=== PATIENT | male | born 1945 | race Hispanic/Latino ===

== ENCOUNTER 2018-09-17 06:26 | Day surgery (SDC) | payer MEDICARE, MEDICAID ==
[~2018-09-17] VITALS: Ht 152.4 cm; Wt 63.9 kg
[2018-09-17] MEDS: LR 1,000 ML IV ONE ×2 (06:00→07:00)
[~2018-09-17 06:26] MED LIST: ACET-897 PO; ALBU17IN2 INH; ASPI81TA26 PO; ATOR40TA75 PO; DEPA1CAP PO; METO1TAB32 PO; MULTTAB79 PO; OYST500T10 PO; POLY1POW38 PO; PROTPAK PO; SALI0.6530; ceFAZolin SOD 1 GM in D5W MINI-BAG PLUS 50 ML IV ONE
[2018-09-17] MEDS ORDERED: MIDAZOLAM INJ 2 MG/2 ML VIAL (J2250) As Ordered ONE (07:50)
[2018-09-17] MEDS ORDERED: LIDOCAINE 2% INJ 100 MG/5 ML SDV (FOR ANES.) As Ordered ONE (07:50)
[2018-09-17] MEDS ORDERED: ROCURONIUM BROMIDE 50 MG/5 ML VIAL As Ordered ONE (07:50)
[2018-09-17] MEDS ORDERED: ONDANSETRON 4MG/2ML VIAL (J2405) As Ordered ONE (07:50)
[2018-09-17] MEDS ORDERED: PROPOFOL 200 MG/20 ML VIAL As Ordered ONE (07:50)
[2018-09-17] MEDS ORDERED: dexameTHASONE 4 MG/ML 1ML VIAL (J1100) As Ordered ONE (07:50)
[2018-09-17] MEDS ORDERED: fentaNYL 100 MCG/2 ML INJECTION (J3010) As Ordered ONE ×2 (07:50→08:09)
[2018-09-17] MEDS ORDERED: PHENYLephrine HCL 500 MCG/5 ML (100MCG/ML) SYRINGE (J2370) As Ordered ONE (07:51)
[2018-09-17] MEDS ORDERED: SUGAMMADEX SODIUM 500 MG/5 ML VIAL (BRIDION) As Ordered ONE (08:02)
[2018-09-17] MEDS ORDERED: CEFAD50CA PO (09:15)
--- NOTE | 2018-09-17 09:20 | ROOPDOC ---
[facility] Report Of Operation Report of Operation DATE OF PROCEDURE: 09/17/18 PREPROCEDURE DIAGNOSES: Gross hematuria, bladder mass . POSTPROCEDURE DIAGNOSES: Same. PROCEDURE: Cystoscopy, transurethral resection of bladder tumor. SURGEON: Wilfredo Mas MD COUNSELLING PSYCHOLOGIST: MD Teresa ANESTHESIA: Gen. endotracheal. ESTIMATED BLOOD LOSS: Approximately 50 mL. COMPLICATIONS: None. REMARKS: Drains: 22 Mongolian Elmore catheter Findings: Large 4-5 cm high-grade tumor involving the right hemitrigone extending to the bladder neck. PROCEDURE NOTE: Patient was brought to the operating room and following administration of general endotracheal anesthesia was placed in the dorsolithotomy position and prepped and draped in usual sterile fashion. A 22 Mongolian cystoscope was inserted under direct vision. The urethra was normal. Prostate was 3 cm in length. Examination of the bladder revealed a high-grade tumor which was mainly submucosal and involving the right hemitrigone and extending to the bladder neck. The tumor was bleeding diffusely in multiple areas. The remainder of the bladder was unremarkable. The left ureteral orifice was normal. Several cold cup biopsies were obtained from the tumor and hemostasis was attempted with a Bugbee electrode. However good hemostasis could not be achieved. The cystoscope was removed. A continuous-flow resectoscope was inserted. Utilizing bipolar current the tumor was resected. Hemostasis was then achieved using bipolar electrocautery. Tumor chips were evacuated from the bladder using Ellik evacuator. The entire tumor could not be resected. Once good hemostasis was achieved the resectoscope was removed. A 22 Mongolian two-way Elmore catheter was inserted and placed to gravity drainage. Patient tolerated the procedure well and returned to the recovery room in satisfactory condition. Wilfredo Mas MD Sep 17, 2018 09:20
[2018-09-17] MEDS ORDERED: diphenhydrAMINE INJ 50MG/ML VIAL (J1200) As Ordered ONE (09:24)
[2018-09-17] MEDS ORDERED: LR 1,000 ML IV SCH (09:30)
[2018-09-17] MEDS ORDERED: ONDANSETRON 4MG/2ML VIAL (J2405) IV PRN (09:30)
[2018-09-17] MEDS ORDERED: fentaNYL 100 MCG/2 ML INJECTION (J3010) IV PRN (09:30)
[2018-09-17] MEDS ORDERED: diphenhydrAMINE INJ 50MG/ML VIAL (J1200) IV ONE (09:45)
[2018-09-17 11:00] VITALS: BP 176/94
[2018-09-17] MEDS ORDERED: CEPHALEXIN 250 MG CAP PO SCH (21:00)
== END 2018-09-17 11:31 | disposition home or self-care (01) ==
LOC: M SDC 06:26
PROVIDERS: ATTEND Urology
DX: C67.0 Malignant neoplasm of trigone of bladder (principal); K21.9 Gastro-esophageal reflux disease without esophagitis; R76.11 Nonspecific reaction to tuberculin skin test without active tuberculosis; F73 Profound intellectual disabilities; F41.9 Anxiety disorder, unspecified; H54.8 Legal blindness, as defined in USA; Q12.0 Congenital cataract
CPT/HCPCS: 52235; 88307; J0690; J1100; J1200; J2250; J2370; J2405; J3010

== ENCOUNTER → 2018-09-23 | Outpatient (CLI) | payer MEDICARE, MEDICAID ==
[~2018-09-23] MED LIST changes: +CEFAD50CA PO; -ceFAZolin SOD 1 GM in D5W MINI-BAG PLUS 50 ML IV ONE
[2018-09-23 13:56] LABS: CALCIUM LEVEL 9.6 MG/DL (8.8-10.2); CREATININE FOR GFR 1.42 MG/DL (0.70-1.30); POTASSIUM SERUM 4.7 MEQ/L (3.5-5.1)
== END ==
LOC: M SMT 11:11
PROVIDERS: ATTEND Urology
DX: C67.9 Malignant neoplasm of bladder, unspecified (principal)
CPT/HCPCS: 36415; 80048; G0463

== ENCOUNTER 2018-10-20 10:06 | Inpatient (IN) | payer MEDICARE, MEDICAID ==
[~2018-10-20] VITALS: Ht 152.4 cm; Wt 59.0 kg
[2018-10-20 10:55] LABS: APPEARANCE, URINE CLOUDY (CLEAR); BACTERIA, URINE AUTO 1+ (NEGATIVE); BILIRUBIN, URINE AUTO NEGATIVE (NEGATIVE); BLOOD, URINE BLOOD 2+ (NEGATIVE); COLOR, URINE YELLOW (YELLOW); GLUCOSE, URINE (UA) AUTO 1+ mg/dL (NEGATIVE); KETONE, URINE AUTO NEGATIVE (NEGATIVE); LEUKOCYTE ESTERASE, URINE AUTO 3+ (NEGATIVE); MUCUS, URINE SMALL (NEGATIVE); NITRITE, URINE AUTO NEGATIVE (NEGATIVE); PROTEIN, URINE AUTO 3+ mg/dL (NEGATIVE); RBC, URINE AUTO TNTC /HPF (0-3); SPECIFIC GRAVITY URINE AUTO 1.011 (1.002-1.035); SQUAMOUS EPITHELIAL CELL UR AU 0 /HPF (0-6); UROBILINOGEN, URINE AUTO 0.2 mg/dL (0.0-2.0); WBC, URINE AUTO TNTC /HPF (0-3)
[2018-10-20] MEDS ORDERED: DIPH25CA PO (11:16)
[2018-10-20] MEDS ORDERED: OCEA0.654 NARES (11:16)
[2018-10-20] MEDS ORDERED: ALBU0.63 NEB (11:16)
[2018-10-20] MEDS ORDERED: CVS100LI4 PO (11:16)
[2018-10-20] MEDS ORDERED: MILKSUS3 PO (11:16)
[2018-10-20] MEDS ORDERED: DEPA1CAP PO (11:16)
[2018-10-20] MEDS ORDERED: ASPI81CH33 PO (11:16)
[2018-10-20 11:31] LABS: BASO % 0.2 % (0.0-1.0); EOS # 0.2 10^3/uL (0.0-0.50); EOS % 0.7 % (0.0-3.0); HEMATOCRIT 24.5 % (42.0-52.0); HEMOGLOBIN 7.8 g/dl (13.5-17.5); LYMPH # 1.4 10^3/uL (1.5-4.5); LYMPH % 5.4 % (24.0-44.0); MEAN CORPUSCULAR HEMOGLOBIN 32.1 pg (27.0-33.0); MEAN CORPUSCULAR HGB CONC 31.8 g/dl (32.0-36.5); MEAN CORPUSCULAR VOLUME 100.8 fl (80.0-96.0); MONO # 1.9 10^3/uL (0.0-0.8); MONO % 7.2 % (0.0-5.0); NEUTROPHILS # 22.2 10^3/uL (1.8-7.7); NEUTROPHILS % 85.8 % (36.0-66.0); PLATELET COUNT, AUTOMATED 485 10^3/uL (150-450); RED BLOOD COUNT 2.43 10^6/uL (4.30-6.10); WHITE BLOOD COUNT 25.8 10^3/uL (4.0-10.0)
[2018-10-20 11:41] LABS: INR 1.22; PROTHROMBIN TIME 15.6 SECONDS (12.1-14.4)
[2018-10-20 11:42] LABS: PARTIAL THROMBOPLASTIN TIME 36.7 SECONDS (25.4-37.6)
[2018-10-20 12:15] LABS: ALBUMIN 2.1 GM/DL (3.2-5.2); ALT/SGPT 12 U/L (12-78); BILIRUBIN,DIRECT < 0.1 MG/DL (0.0-0.2); BILIRUBIN,TOTAL 0.2 MG/DL (0.2-1.0); BLOOD UREA NITROGEN 101 MG/DL (7-18); CALCIUM LEVEL 8.7 MG/DL (8.8-10.2); CARBON DIOXIDE LEVEL 21 MEQ/L (21-32); CHLORIDE LEVEL 114 MEQ/L (98-107); CPK CREATINE PHOSPHOKINASE 57 U/L (39-308); CREATININE FOR GFR 8.27 MG/DL (0.70-1.30); FREE T4 0.87 NG/DL (0.76-1.46); GLOMERULAR FILTRATION RATE 6.8 (>42); GLUCOSE, FASTING 87 MG/DL (70-100); MB/CK RELATIVE INDEX 3.33 (< OR =4); POTASSIUM SERUM 5.5 MEQ/L (3.5-5.1); SODIUM LEVEL 147 MEQ/L (136-145); TOTAL PROTEIN 6.6 GM/DL (6.4-8.2); TROPONIN I < 0.02 NG/ML (< 0.10)
[2018-10-20] MEDS ORDERED: NS 1,000 ML IV SCH ×2 (12:30→13:24)
--- NOTE | 2018-10-20 12:34 | SMCUROLCON ---
Urology Consultation General Date of Consultation 10/20/18 Reason For Consultation This patient is seen for Sepsis. History of Present Illness Pt is 72 years old male UTI and Renal Failure. He was transferred from [facility] with sepsis and dehydration. Past Medical History Medical History THIS IS A 72 Y/O M HERE FOR F/U AFTER UNDERGOING A CYSTO W/ history of TURBT ON 09/17/18. HE HAS BEEN WELL SINCE SURGERY. HIS CATHETER HAS DRAINED clear and removed last week. His PATHOLOGY WAS NOTABLE FOR HIGH GRADE UC W/ SQUAMOUS DIFFERENTIATION AND TUMOR NECROSIS. THERE WAS STROMAL/LAMINA PROPRIA INVASION AND A FOCUS OF MUSCULARIS PROPRIAR SUSPICIOUS FOR CANCER. THERE WERE SEVERAL FRAGMENTS OF MUSCULARIS PROPRIA NEGATIVE FOR CANCER. He presented to [facility] with sepsis, UTI, Renal; failure and dehydration. Medications Current Medications Current Medications Home Med (Med Rec Complete!) ASDIRECTED XX ; Start 10/20/18 at 11:30; Stop 10/20/18 at 11:30; Status DC Allergies Allergies: Coded Allergies: tuberculin, purified protein deriva (Verified Allergy, Unknown, 09/17/18) Review of Systems General: Reports: Other Symptoms (Patient cannot communicate because his noit oriented to person, place or time) Physical Examination Abdomen Exam: No: Normal Bowel Sounds, BS Hyperactive, BS Hypoactive, Soft, Tenderness, Hepatospenomegaly, Mass, Hernia, Other Male Exam: Normal Genital Exam, Lesions, Edema, Erythema, Tenderness, Discharge, Mass, Hernia, Normal Prostate, Normal Sphincter Tone Male Exam Elmore cath in place and draining clear urine Vital Signs/I&O Vital Signs Date Time Temp Pulse Resp B/P (MAP) Pulse Ox O2 Delivery O2 Flow Rate FiO2 10/20/18 12:01 166/98 (120) 10/20/18 11:46 89 53 10/20/18 10:17 96.9 20 Room Air Laboratory Data 24H Labs Laboratory Tests 2 10/20/18 10:42: Urine Appearance CLOUDYH, Urine Color YELLOW, Urine pH 7.0, Urine Specific [place] 1.011, Urine Protein 3+H, Urine Glucose (UA) 1+H, Urine Ketones NEGATIVE, Urine Urobilinogen 0.2, Urine Bilirubin NEGATIVE, Urine Leukocyte Esterase 3+H, Urine Blood 2+H, Urine Nitrite NEGATIVE, Urine WBC (Auto) TNTCH, Urine RBC (Auto) TNTCH, Urine Hyaline Casts (Auto) 0, Urine Bacteria (Auto) 1+H, Urine Squamous Epithelial Cells 0, Urine Mucus (Auto) SMALL, Urine Sperm (Auto) 10/20/18 11:19: Immature Granulocyte % (Auto) 0.7, White Blood Count 25.8H, Red Blood Count 2.43L, Hemoglobin 7.8L, Hematocrit 24.5L, Mean Corpuscular Volume 100.8H, Mean Corpuscular Hemoglobin 32.1, Mean Corpuscular Hemoglobin Concent 31.8L, Red Cell Distribution Width 14.0, Platelet Count 485H, Neutrophils (%) (Auto) 85.8H, Lymphocytes (%) (Auto) 5.4L, Monocytes (%) (Auto) 7.2H, Eosinophils (%) (Auto) 0.7, Basophils (%) (Auto) 0.2, Neutrophils # (Auto) 22.2H, Lymphocytes # (Auto) 1.4L, Monocytes # (Auto) 1.9H, Eosinophils # (Auto) 0.2, Basophils # (Auto) 0.0, Nucleated Red Blood Cells % (auto) 0.0, Prothrombin Time 15.6H, Prothromb Time International Ratio 1.22, Activated Partial Thromboplast Time 36.7, Lactic Acid Level 1.4 CBC/BMP Laboratory Tests 10/20/18 11:19 Red Blood Count 2.43 L, Mean Corpuscular Volume 100.8 H, Mean Corpuscular Hemoglobin 32.1, Mean Corpuscular Hemoglobin Concent 31.8 L, Red Cell Distribution Width 14.0, Neutrophils (%) (Auto) 85.8 H, Lymphocytes (%) (Auto) 5.4 L, Monocytes (%) (Auto) 7.2 H, Eosinophils (%) (Auto) 0.7, Basophils (%) (Auto) 0.2, Neutrophils # (Auto) 22.2 H, Lymphocytes # (Auto) 1.4 L, Monocytes # (Auto) 1.9 H, Eosinophils # (Auto) 0.2, Basophils # (Auto) 0.0 Microbiology Microbiology 10/20/18 Blood Culture, Received Pending 10/20/18 Blood Culture, Received Pending 10/20/18 Urine Culture, Received Pending Assessment Pt with history of urinary tract cancer. Present was dehydration, sepsis, renal failure and UTI. outside Labs WBC 27.2, K+ 6.2, BUN [address] scan noncontrast c/w bilateral hydronephrosis soft tissue obstruction suspicious for TCC. Liver lesion ? metastatic disease. Plan Manage medical problems keep Elmore cath in place Monitor creat Time Spent on Consult: Time Spent / Consult (Minutes): 30 (I reviewed all the patient records from [facility] and evaluated examined the patient. ) NELIA RIBEIRO MD October 20, 2018 12:34
[2018-10-20 13:07] LABS: VALPROIC ACID (DEPAKOTE) 50.7 UG/ML (50.0-100.0)
[2018-10-20] MEDS ORDERED: cefTRIAXone SOD 1 GM in D5W MINI-BAG PLUS 50 ML IV ONE (13:45)
--- NOTE | 2018-10-20 14:21 | HPEPDOC ---
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 Patient initially presented to the ER at [facility] ([facility]) because he was experiencing fevers and reported lethargy. Upon arrival at [facility] patient received imaging that revealed mass encasing the distal right ureter and lesions in the liver suspicious for metastatic disease. His lab work was also significant for renal failure with a Creatinine of >8.0. Patient was transferred over to [facility] where he was evaluated by urology. Currently, they have recommended IV fluid hydration. Hospital services called for further evaluation and treatment. Patient is nonverbal at baseline. He does have a caregiver present, Carie Yarbrough. Was provided contact information for the patients family. Maddy (Sister) [phone]; and Joceline ([place] [employer] [facility]) [phone]. I have contacted sales order administrator on duty at [facility] in [facility]; discussed with Joceline. Patients family has been made aware and we will reach out to them for further details. I personally discussed with the patients sister, Maddy and given her an update. Home Medications Scheduled Acetaminophen (Tylenol Extra Strength) 500 Mg Tablet, 1,000 MG PO BID, (Reported) Aspirin (Aspirin) 81 Mg Tab.chew, 81 MG PO DAILY, (Reported) Atorvastatin Calcium (Atorvastatin Calcium) 40 Mg Tablet, 40 MG PO QHS, (Reported) Calcium Carbonate/Vitamin D3 (Oyster Shell 500-Vit D3 200 Tb) 1 Each Tablet, 1 TAB PO DAILY, (Reported) Divalproex Sodium (Depakote Sprinkle) 125 Mg Cap., 750 MG PO QAM, (Reported) Divalproex Sodium (Depakote Sprinkle) 125 Mg Cap., 500 MG PO QPM, (Reported) Metoprolol Succinate (Metoprolol Succinate) 25 Mg Tab.er.24h, 25 MG PO DAILY, (Reported) HOLD IF BP <100/60 OR PULSE <60 Multivit-Min/Iron/Folic Acid/K (Multi-Day Plus Minerals Tablet) 1 Each Tablet, 1 TAB PO DAILY, (Reported) Pantoprazole Sodium (Protonix) 40 Mg Granpkt.dr, 40 MG PO BID, (Reported) Polyethylene Glycol 3350 (Polyethylene Glycol 3350) 17 Gm Powd.pack, 17 GM PO DAILY, (Reported) Scheduled PRN Albuterol Sulfate (Albuterol Sulfate) 0.63 Mg/3 Ml Vial.neb, 1 VIAL NEB Q6H PRN for SHORTNESS OF BREATH, (Reported) Diphenhydramine HCl (Diphenhydramine HCl) 25 Mg Capsule, 25 MG PO Q4H PRN for NASAL CONGESTION, (Reported) Guaifenesin (Tussin) 100 Mg/5 Ml Liquid, 2 TSP PO Q4H PRN for COUGH, (Reported) Magnesium Hydroxide (Milk of Magnesia) 400 Mg/5 Ml Oral.susp, 30 ML PO for CONSTIPATION, (Reported) TO BE GIVEN AFTER 9 FULL SHIFTS WITH NO BM OR SMALL BM Sodium Chloride ([place]ajas) 104 Ml [place], 1 SPRAY NARES for NASAL DRYNESS, (Reported) EACH NOSTRIL Allergies Coded Allergies: tuberculin, purified protein deriva (Verified Allergy, Unknown, 09/17/18) Past Medical History Medical History Cerebral palsy with profound mental retardation, HTN, DLP Neurogenic bladder, Anxiety / Behavioral problems, Cataracts, Osteoporosis, and GERD Recent diagnosis of 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 Surgical History Unable to obtain as patient is non-verbal Review of records indicates a Cystoscopy and Biopsy completed on 09/18 Family History - Discussed with sister; reported heart problems Social History - Unable to obtain as patient is non-verbal; however review of records indicates that he was a non-smoker - Lives at [facility] [employer] Review of Systems Other systems Unable to obtain 10 point review of systems as patient is non-verbal Vital Signs - Vitals: BP 166/98, HR 102, RR 20, Sat 96%RA, Temp 96.9F - General: Lying in bed, No acute distress, Making incomprehensible sounds, Awake / Alert - HEENT: NC, AT, PERRLA, EOMI - CVS: RRR, +S1S2, - Murmurs / rubs / gallops - Lungs: Fair air entry bilaterally, Clear to auscultation, No wheezing / rales / rhonchi - Abdomen: Soft, Non-distended, Non-tender, + Elmore catheter - Extremities: No lower extremity edema, No calf tenderness - Neuro: Moving all four extremities; retracts / localizes pain - Skin: No visible rashes Laboratory Data Labs 24H Laboratory Tests 2 10/20/18 10:42: Urine Appearance CLOUDYH, Urine Color YELLOW, Urine pH 7.0, Urine Specific [place] 1.011, Urine Protein 3+H, Urine Glucose (UA) 1+H, Urine Ketones NEGATIVE, Urine Urobilinogen 0.2, Urine Bilirubin NEGATIVE, Urine Leukocyte Esterase 3+H, Urine Blood 2+H, Urine Nitrite NEGATIVE, Urine WBC (Auto) TNTCH, Urine RBC (Auto) TNTCH, Urine Hyaline Casts (Auto) 0, Urine Bacteria (Auto) 1+H, Urine Squamous Epithelial Cells 0, Urine Mucus (Auto) SMALL, Urine Sperm (Auto) 10/20/18 11:19: Immature Granulocyte % (Auto) 0.7, White Blood Count 25.8H, Red Blood Count 2.43L, Hemoglobin 7.8L, Hematocrit 24.5L, Mean Corpuscular Volume 100.8H, Mean Corpuscular Hemoglobin 32.1, Mean Corpuscular Hemoglobin Concent 31.8L, Red Cell Distribution Width 14.0, Platelet Count 485H, Neutrophils (%) (Auto) 85.8H, Lymphocytes (%) (Auto) 5.4L, Monocytes (%) (Auto) 7.2H, Eosinophils (%) (Auto) 0.7, Basophils (%) (Auto) 0.2, Neutrophils # (Auto) 22.2H, Lymphocytes # (Auto) 1.4L, Monocytes # (Auto) 1.9H, Eosinophils # (Auto) 0.2, Basophils # (Auto) 0.0, Nucleated Red Blood Cells % (auto) 0.0, Prothrombin Time 15.6H, Prothromb Time International Ratio 1.22, Activated Partial Thromboplast Time 36.7, Anion Gap 12, Glomerular Filtration Rate 6.8L, Lactic Acid Level 1.4, Calcium Level 8.7L, Aspartate Amino Transf (AST/SGOT) 24, Alanine Aminotransferase (ALT/SGPT) 12, A lkaline Phosphatase 81, Total Bilirubin 0.2, Direct Bilirubin < 0.1, Total Creatine Kinase 57, Creatine Kinase MB 2.0, Creatine Kinase MB Relative Index 3.33, Troponin I < 0.02, Total Protein 6.6, Albumin 2.1L, Albumin/Globulin Ratio 0.47L, Thyroid Stimulating Hormone (TSH) 5.170H, Free Thyroxine 0.87, Valproic Acid (Depakene) Level 50.7 CBC/BMP Laboratory Tests 10/20/18 11:19 Red Blood Count 2.43 L, Mean Corpuscular Volume 100.8 H, Mean Corpuscular Hemoglobin 32.1, Mean Corpuscular Hemoglobin Concent 31.8 L, Red Cell Distribution Width 14.0, Neutrophils (%) (Auto) 85.8 H, Lymphocytes (%) (Auto) 5.4 L, Monocytes (%) (Auto) 7.2 H, Eosinophils (%) (Auto) 0.7, Basophils (%) (Auto) 0.2, Neutrophils # (Auto) 22.2 H, Lymphocytes # (Auto) 1.4 L, Monocytes # (Auto) 1.9 H, Eosinophils # (Auto) 0.2, Basophils # (Auto) 0.0 Microbiology Microbiology 10/20/18 Blood Culture, Received Pending 10/20/18 Blood Culture, Received Pending 10/20/18 Urine Culture, Received Pending Plan / VTE VTE Prophylaxis Ordered?: Yes Plan Plan Leukocytosis / Fever - likely 2/2 urinary tract infection - Patient was found to have fever and was experiencing lethargy at [facility] - Upon arrival to the emergency room at [facility]. Patient was found to be febrile - Urine analysis there as well as here reveal that there is evidence of urinary tract infection - Blood cultures and urine cultures remain pending - Chest x-ray and CT scan brain completed at [facility] have been negative for acute findings - s/p Ceftriaxone at [facility]; will c/w Ceftriaxone (Day #2) Acute renal failure - possibly 2/2 pre-renal etiology, intrarenal etiology, or post-renal etiology - Patient is presented to [facility] with a creatinine of greater than 8 - Patients baseline creatinine was noted to be approximately 1.4 - There is hyperkalemia noted. No evidence of acidosis - Physical does not reveal any signs of fluid overload - Patient has had a CT scan completed at [facility]; bilateral hydro-nephro ureter with soft tissue attenuation obstruction of the ureteral lumen seen in the mid ureter of the left suspicious for transitional cell carcinoma - Patient has had a Elmore catheter placed - Urinalysis electrolytes have been sent for analysis - Will repeat imaging with renal ultrasound to evaluate for change in obstructive pattern - Patient has received a normal saline bolus; will continue with D5 half and S - Nephrology and Urology on consultation Recent diagnosis of 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 Solis - Currently patient no outpatient follow up with Oncology; will discuss with Urology out treatment plan / prognosis - Urology on consultation Hypernatremia - Has received a bolus of normal saline in the emergency room - c/w D5 1/2 NS - Will repeat lab work at 4 PM - Nephrology on consultation Hyperkalemia - Patient has received Kayexalate at [facility] - Potassium has improved compared to records from [facility] - EKG without any acute T wave changes; no ischemic changes - Will repeat lab work at 4 PM Macrocytic anemia - Will check B12 levels and Folate - No evidence of bleeding - Will continue to monitor counts Cerebral palsy with profound mental retardation HTN; Hypertensive Crisis - BP significantly elevated in ER; possibly 2/2 pain - Will restart Metoprolol DLP - c/w Atorvastatin Neurogenic bladder - s/p Elmore Catheter Anxiety / Behavioral problems - c/w Divalproex Cataracts Osteoporosis - c/w Vitamin D / Calcium supplementation GERD - c/w Protonix DVT prophylaxis - Will start Heparin ZOHRA MERCADO MD October 20, 2018 14:21
[2018-10-20 14:30] LABS: MAGNESIUM LEVEL 2.6 MG/DL (1.8-2.4)
[2018-10-20 14:45] VITALS: BP 170/80
[2018-10-20] MEDS: D5W/0.45% SODIUM CHLORIDE 1,000 ML IV SCH ×2 (14:55→20:45)
[2018-10-20 16:00] VITALS: BP 168/98
[2018-10-20 16:02] LABS: CALCIUM LEVEL 8.5 MG/DL (8.8-10.2); CREATININE FOR GFR 8.55 MG/DL (0.70-1.30); GLOMERULAR FILTRATION RATE 6.6 (>42); POTASSIUM SERUM 6.1 MEQ/L (3.5-5.1)
[2018-10-20] MEDS ORDERED: SODIUM CHLORIDE NASAL 0.65% SPRAY BTL (OCEAN) PRN (16:45)
[2018-10-20] MEDS ORDERED: MOM 30ML SUSPENSION UDC PO PRN (16:45)
[2018-10-20] MEDS ORDERED: MIRALAX *UNIT DOSE* 17GM PACKET PO PRN (16:45)
[2018-10-20] MEDS: METOPROLOL SUCC *XL* 25MG TAB (TopROL *XL*) PO SCH (17:07)
[2018-10-20] MEDS: ASPIRIN 81 MG ENTERIC TAB PO SCH (17:07)
[2018-10-20] MEDS: ACETAMINOPHEN TAB 650MG DOSE (2X325MG) PO PRN (17:08)
[2018-10-20] MEDS ORDERED: SOD POLYSTYRENE SULFONATE SUSP 30 GM/120 ML ENEMA PR ONE (17:30)
[2018-10-20] MEDS ORDERED: PATIROMER SORBITEX CALCIUM 8.4 GM POWDER PACKET (VELTASSA) PO ONE ×2 (17:30→23:00)
[2018-10-20 20:00] VITALS: BP_SYST 120; BP_SYST 131; BP_DIAS 73; BP_DIAS 83
[2018-10-20] MEDS: DIVALPROEX SPRINKLE 125 MG CAP PO SCH (20:44)
[2018-10-20] MEDS: ATORVASTATIN 20 MG TAB PO SCH (20:45)
[2018-10-20] MEDS: PANTOPRAZOLE 40MG INJ (PROTONIX) (C9113) IV SCH (20:45)
[2018-10-20] MEDS: HEPARIN SOD (PORCINE) 5000 UNITS/ML VIAL SC SCH (20:45)
--- NOTE | 2018-10-20 21:28 | ECGEPIP ---
Stationary ECG Study [facility] - ED Test Date: 2018-10-20 Pat Name: JOHN OWENS Department: Room: [place] [address] Gender: M [employer] Quality [employer]: : [id number] Requested By: MEL Knox Order Number: [id number] Reading MD: Carie Tomlinson Measurements Intervals [place] Rate: 87 P: 44 ND: 126 QRS: 11 QRSD: 76 T: 53 QT: 353 QTc: 426 Interpretive Statements SINUS RHYTHM NO PRIOR FOR COMPARISON Electronically Signed On 10-20-2018 21:28:55 EDT by Carie Tomlinson
[2018-10-20] MEDS: SODIUM BICARBONATE 75 MEQ in D5W 1,000 ML IV SCH (22:14)
[2018-10-20 22:31] LABS: CALCIUM LEVEL 8.7 MG/DL (8.8-10.2); CREATININE FOR GFR 8.87 MG/DL (0.70-1.30); GLOMERULAR FILTRATION RATE 6.3 (>42); POTASSIUM SERUM 6.1 MEQ/L (3.5-5.1)
--- NOTE | 2018-10-20 22:45 | REPVR ---
EXAM: CT Abdomen and Pelvis Without Contrast EXAM DATE/TIME: 10/20/2018 9:17 PM CLINICAL HISTORY: 72 years old, male; Condition or disease; Cancer and kidney or ureter condition; Acute renal insufficiency and hydronephrosis and hydroureter; Other: Bladder; Additional info: Renal failure, b/l hydroureteronephrosis, CA bladder TECHNIQUE: Imaging protocol: Axial computed tomography images of the abdomen and pelvis without contrast. Coronal and sagittal reformatted images were created and reviewed. Radiation optimization: All CT scans at this facility use at least one of these dose optimization techniques: automated exposure control; mA and/or kV adjustment per patient size (includes targeted exams where dose is matched to clinical indication); or iterative reconstruction. COMPARISON: RENAL US 10/20/2018 3:54 PM FINDINGS: Lungs: Bibasilar atelectasis. Heart: Pericardial thickening versus small pericardial effusion. Mediastinum: There is increased circumferential thickening of the wall of the distal esophagus. There is a small hiatal hernia. ABDOMEN: Liver: Hypodense lesion in the lateral segment of the left lobe of the liver not characterized on this unenhanced scan, may represent a cyst or unopacified hemangioma. Gallbladder and bile ducts: The gallbladder fasting. Pancreas: There is diffuse pancreatic atrophy. Spleen: Normal. No splenomegaly. Adrenals: Normal. No mass. Kidneys and ureters: Normal. No hydronephrosis. Stomach and bowel: Circumferential thickening of the rectal wall which should be correlated with digital examination. Appendix: No evidence of appendicitis. PELVIS: Bladder: Elmore catheter demonstrated within a glass urinary bladder demonstrates marked thickening of the bladder wall and perivesicular inflammatory changes. Findings consistent with gross cystitis however neoplasm not excluded. In addition there is a right posterior lateral mass contiguous with the right side of the bladder which contains a small amount of air in overall dimensions of 5.1 x 4.4 x 5.5 cm. This may represent neoplasm within the large bladder diverticulum. Bilateral moderate hydroureteronephrosis likely secondary to the above-described bladder findings and right posterolateral bladder mass. Reproductive: The prostate gland demonstrates mild hyperplasia. ABDOMEN and PELVIS: Intraperitoneal space: Normal. No free air. No significant fluid collection. Bones/joints: The spine demonstrates mild degenerative changes. Soft tissues: Right inguinal hernia. Vasculature: The aorta demonstrates mild atherosclerotic calcification. Lymph nodes: Normal. No enlarged lymph nodes. IMPRESSION: 1. Thickened wall of the distal esophagus. Finding may be related to reflux esophagitis however an esophageal neoplasm should be excluded clinically. 2. There is diffuse pancreatic atrophy. 3. Elmore catheter demonstrated within a glass urinary bladder demonstrates marked thickening of the bladder wall and perivesicular inflammatory changes. Findings consistent with gross cystitis however neoplasm not excluded. In addition there is a right posterior lateral mass contiguous with the right side of the bladder which contains a small amount of air in overall dimensions of 5.1 x 4.4 x 5.5 cm. This may represent neoplasm within the large bladder diverticulum. 4. Bilateral moderate hydroureteronephrosis likely secondary to the above-described bladder findings and right posterolateral bladder mass. 5. Mild prostatic hyperplasia. 6. Circumferential thickening of the rectal wall which should be correlated with digital examination. COMMENT: Consistent with the [employer] [place]'s Incidental Findings Committee Report (J Am Kelley Radiol 2010): Unless the patient's specific circumstances suggest otherwise, any liver lesion 0.5 cm or less, any cystic kidney lesion less than 1.0 cm, and/or any adrenal lesion 1.0 cm or less not otherwise characterized in this report as possessing suspicious or indeterminate imaging features is/are highly likely to be benign and do not require follow-up imaging or biopsy. Electronically signed by: David Chen On 10/20/2018 22:44:24 PM
[2018-10-20 23:59] VITALS: BP 148/67
[2018-10-21] VITALS (9 sets, daily range): BP systolic 142–178; BP diastolic 66–89
--- NOTE | 2018-10-21 01:08 | IPNPDOC ---
Text Note Date of Service The patient was seen on 10/21/18. NOTE CT Bad: bilateral obstructive hydronephrosis due to bladder tumor Urine output minimum, has bah. Cr >8, K 6.1. Spoke with both Dr. Estrada and Will; no surgical intervention, recommended percutaneous nephrostomy. Very poor prognosis due to metastatic bladder cancer. Tries calling pt's legal guardian (sister Jessica); no response. I am not sure if putting pt through more medical/surgical interventions actually has more benefit than harm. Need to discuss this with Jessica. Pt has received more K-lowering agent. Recheck labs in the morning. A-FIB/CHADSVASC A-FIB History Current/History of A-Fib/PAF?: No VS,Fishbone, I+O VS, Fishbone, I+O Laboratory Tests 10/20/18 11:19 Red Blood Count 2.43 L, Mean Corpuscular Volume 100.8 H, Mean Corpuscular Hemoglobin 32.1, Mean Corpuscular Hemoglobin Concent 31.8 L, Red Cell Distribution Width 14.0, Neutrophils (%) (Auto) 85.8 H, Lymphocytes (%) (Auto) 5.4 L, Monocytes (%) (Auto) 7.2 H, Eosinophils (%) (Auto) 0.7, Basophils (%) (Auto) 0.2, Neutrophils # (Auto) 22.2 H, Lymphocytes # (Auto) 1.4 L, Monocytes # (Auto) 1.9 H, Eosinophils # (Auto) 0.2, Basophils # (Auto) 0.0 10/20/18 15:17 Calcium Level 8.5 L 10/20/18 21:43 Calcium Level 8.7 L Vital Signs Date Time Temp Pulse Resp B/P (MAP) Pulse Ox O2 Delivery O2 Flow Rate FiO2 10/20/18 23:59 99.2 84 18 148/67 (94) 98 10/20/18 14:13 Room Air I&O- Last 24 Hours up to 6 AM 10/21/18 06:00 Intake Total 1055 ml Output Total 875 ml Balance 180 ml FLETCHER CORDOBA MD October 21, 2018 01:08
--- NOTE | 2018-10-21 02:35 | CR ---
DATE OF CONSULTATION: 10/20/2018 REQUESTING PHYSICIAN: Dr. Cintia Lopez REASON FOR CONSULTATION: Renal failure with obstructive uropathy. HISTORY OF PRESENT ILLNESS: The history is obtained from chart review and discussion with healthcare provider. The patient is unable to provide any history due to clinical condition. 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 The patient also has a history of dyslipidemia, hypertension, gastroesophageal reflux disease (GERD), neurogenic bladder and he was recently diagnosed with high-grade urothelial carcinoma. He underwent transurethral resection of the bladder tumor in September of 2018. He apparently had a catheter that was removed last week. The patient was transferred to [facility] from [facility] after he presented the with the complaint of fever and apparent lethargy. At [facility] he had imaging that revealed mass encasing the distal right ureter and lesions in the liver suspicious for metastatic disease. His lab work also revealed renal failure. He has been evaluated by urology here and has had a Elmore catheter replaced. Serial chemistry does not show any significant improvement in renal function with the Elmore catheter and intravenous (IV) administration. PAST MEDICAL HISTORY: As mentioned above. PAST SURGICAL HISTORY: 1. Cystoscopy. 2. Transurethral resection of bladder tumor in September 2018 with pathology showing high-grade urothelial carcinoma. Other surgical history is unavailable to me. FAMILY HISTORY: Heart disease. SOCIAL HISTORY: The patient is a deaf mute/nonverbal, profoundly mentally retarded and requires skilled nursing care. I spoke with his sister Maddy at [phone]. HOME MEDICATIONS: Reviewed and include: - Tylenol - aspirin - statin - oyster shell - calcium - Depakote - Milk of Magnesia as needed - metoprolol - Protonix ALLERGIES: TUBERCULIN. REVIEW OF SYSTEMS: Unable to obtain secondary to clinical condition (profound mental retardation, nonverbal). PHYSICAL EXAMINATION: VITAL SIGNS: Temperature 99.6, pulse 106, respiratory rate 22, blood pressure 168/98 saturating 97% on room air. Intake is not fully recorded. Urine output is 475 mL. GENERAL: The patient is seen lying in bed in no apparent distress, resting comfortably until I entered the room whereupon he began to cry and make incomprehensible sounds. Eyes are closed. Tongue is dry. Jugular veins are not elevated. CARDIAC: S1, S2. Regular rate and rhythm. No pericardial friction rub. No peripheral edema, palpable radial pulse. RESPIRATORY: Lungs show symmetric air entry. No crackle, rale or audible wheeze. ABDOMEN: The abdomen is soft and he does not grimace to palpation. There is no distention. There is a Elmore catheter in place draining clear yellow urine. EXTREMITIES: The lower extremities are negative for edema. There is some decreased lean muscle mass. NEUROLOGIC: He is awake but not alert and not oriented. Is noncommunicative and does not follow any commands nor cooperate with physical examination. LABORATORY DATA: White count 25.8, hemoglobin 7.8, platelets 485. Sodium 146, potassium 6.1, bicarbonate 20, BUN 102, creatinine 8.5, lactic acid 1.4. Urinalysis (UA) with blood, protein, glucose, leukocyte esterase and bacteria. MICROBIOLOGY: Blood and urine cultures pending. IMAGING: CT abdomen and pelvis noncontrast pending. INPATIENT MEDICATIONS: He is receiving: - ceftriaxone 1 gram IV every 24 hourly - normal saline - he received normal saline at 150 mL/hour and then this was switched to D5 half-normal saline at 150 mL/hour. I subsequently changed his fluids to D5 with 75 mEq of sodium bicarbonate to run at 150 an hour. - Tylenol 650 mg by mouth as needed - aspirin 81 mg by mouth daily - atorvastatin 40 mg by mouth at bedtime - Depakote 500 mg by mouth every evening - Depakote 750 mg by mouth every morning - heparin 5000 units subcutaneously every 12 hourly - Toprol XL 25 mg by mouth daily - Protonix 40 mg IV twice a day - Veltassa 8.4 grams by mouth times 1 - Kayexalate 30 grams rectally times 1 ASSESSMENT AND PLAN: This is a 72-year-old male with profound mental retardation, deaf/mute who was recently diagnosed with high-grade urothelial carcinoma and status post transurethral resection of bladder tumor one month ago who is now admitted with renal failure, hyperkalemia and imaging shows obstructive uropathy. PROBLEMS: 1. Acute renal failure. The patient had a creatinine of 1.4 on laboratory studies approximately one month ago currently with creatinine of 8.5 in the setting of bilateral hydroureteronephrosis secondary to malignancy with outside CAT scan apparently revealing a mass encasing the distal right ureter. I have requested a repeat CAT scan to be done here, which is pending, to better identify the level of his obstruction. He has been seen by urology and thus far a Elmore catheter has been placed. There is no improvement in renal function despite intravenous (IV) hydration and Elmore catheter. He is likely to require percutaneous nephrostomy placement for relief of his obstruction and for improvement in his renal function. I have discussed the same with primary team. 2. Hyperkalemia. It is secondary to renal failure. He has received Veltassa and also a rectal dose of Kayexalate. His chemistry shows very mild acidosis with serum bicarbonate of 20; however, in view of renal failure and hyperkalemia, I am switching his intravenous (IV) fluids to bicarbonate containing fluids. I have also added on a 2 gram potassium restriction to his diet and daily Veltassa administration. He is ordered for serial basic metabolic panels (BMPs). We are unlikely to achieve significant improvement in potassium without relieving the obstructive uropathy. Again, he is likely to require percutaneous nephrostomy placement. 3. Hypernatremia. The patient had a mild free water deficit and he is appropriately receiving hypotonic fluids for the same. 4. Leukocytosis. The patient has been afebrile here; however, there was reported earlier fevers which prompted his visit to outside hospital. White count is 25. Blood and urine cultures have been sent and pending. Urinalysis (UA) shows leukocyte esterase and bacteria. He has already been started on empiric antimicrobials. His lactic acid was negative. He is hemodynamically stable. 5. A recent diagnosis of high-grade urothelial carcinoma status post transurethral resection of bladder tumor with some possible metastatic lesion on the liver and with present bilateral hydroureteronephrosis secondary to malignancy causing obstruction. The patient is followed by urology. I feel that the Elmore alone is unlikely to relieve the obstruction in view of the malignancy. Repeat imaging is ordered. Defer to urology. 6. Profound mental retardation, deaf/mute. I spoke with his sister. She tells me he has mental age estimated at 18 months. Given the profound cognitive impairment and also recent diagnosis of malignancy he is not a suitable candidate for dialysis and I have discussed the same with his sister. In any case, the optimal course of action would be correction of his obstruction at present in order to treat his renal failure. Thank you for involving me in the care of Mr. Lang. I will be happy to follow him along with you.
[2018-10-21] MEDS: ACETAMINOPHEN TAB 650MG DOSE (2X325MG) PO PRN (04:05)
[2018-10-21] MEDS: SODIUM BICARBONATE 75 MEQ in D5W 1,000 ML IV SCH ×3 (04:13→20:12)
[2018-10-21 05:43] LABS: WHITE BLOOD COUNT 24.1 10^3/uL (4.0-10.0)
[2018-10-21 05:44] LABS: BASO % 0.2 % (0.0-1.0); EOS # 0.4 10^3/uL (0.0-0.50); EOS % 1.5 % (0.0-3.0); HEMATOCRIT 20.8 % (42.0-52.0); LYMPH # 1.2 10^3/uL (1.5-4.5); MEAN CORPUSCULAR HEMOGLOBIN 30.6 pg (27.0-33.0); MEAN CORPUSCULAR HGB CONC 31.7 g/dl (32.0-36.5); MEAN CORPUSCULAR VOLUME 96.3 fl (80.0-96.0); MONO % 8.1 % (0.0-5.0); NEUTROPHILS # 20.4 10^3/uL (1.8-7.7); NEUTROPHILS % 84.5 % (36.0-66.0); PLATELET COUNT, AUTOMATED 416 10^3/uL (150-450); RED BLOOD COUNT 2.16 10^6/uL (4.30-6.10)
[2018-10-21 05:46] LABS: CALCIUM LEVEL 8.7 MG/DL (8.8-10.2); CREATININE FOR GFR 8.9 MG/DL (0.70-1.30); GLOMERULAR FILTRATION RATE 6.3 (>42); HEMOGLOBIN 6.6 g/dl (13.5-17.5); MAGNESIUM LEVEL 2.2 MG/DL (1.8-2.4); POTASSIUM SERUM 5.5 MEQ/L (3.5-5.1)
--- NOTE | 2018-10-21 07:56 | REP ---
REASON: Re-assess hydronephrosis. There are no priors for comparison. Right kidney measures 12.4 x 5.7 x 5.9 cm and left measures 12.3 x 4.6 x 5.4 cm. The renal cortical echoes are within normal limits. There are no cystic or solid masses. There is mild to moderate hydronephrosis seen bilaterally. IMPRESSION: Mild to moderate bilateral hydronephrosis. There are no prior examinations for comparison. Electronically Signed by Thony Hood DO 10/21/2018 08:44 A
[2018-10-21] MEDS: DIVALPROEX SPRINKLE 125 MG CAP PO SCH ×2 (09:02→20:13)
[2018-10-21] MEDS: ASPIRIN 81 MG ENTERIC TAB PO SCH (09:02)
[2018-10-21] MEDS: METOPROLOL SUCC *XL* 25MG TAB (TopROL *XL*) PO SCH (09:03)
[2018-10-21] MEDS: PANTOPRAZOLE 40MG INJ (PROTONIX) (C9113) IV SCH ×2 (09:03→20:12)
[2018-10-21] MEDS: MULTIVITAMINS/MINERALS THERAP 1 TAB PO SCH (09:18)
[2018-10-21 10:18] LABS: VITAMIN B12 LEVEL 413 PG/ML
[2018-10-21 10:23] LABS: FOLATE 22.3 NG/ML
[2018-10-21] MEDS: PATIROMER SORBITEX CALCIUM 8.4 GM POWDER PACKET (VELTASSA) PO SCH (12:10)
--- NOTE | 2018-10-21 12:32 | IPNPDOC ---
Text Note Date of Service The patient was seen on 10/21/18. 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 Patient initially presented to the ER at [facility] ([facility]) because he was experiencing fevers and reported lethargy. Upon arrival at [facility] patient received imaging that revealed mass encasing the distal right ureter and lesions in the liver suspicious for metastatic disease. His lab work was also significant for renal failure with a Creatinine of >8.0. Patient was transferred over to [facility] where he was evaluated by urology. Patient was admitted to hospitalist service for further evaluation and treatment. Urology and nephrology were called on consultation. Patient was seen and examined at the bedside. Patient is nonverbal at baseline, again, is making incomprehensible sounds. Does not appear to be in any distress. Caregiver was present at bedside and I have addressed her concerns and questions. Objective: Vitals (See below) General: Lying in bed, no acute distress, appears comfortable, awake / alert HEENT: NC, AT CVS: RRR, +S1S2 Lungs: Fair air entry b/l, no appreciable wheezing, rales or rhonchi Abdomen: Soft, ND, does not appear to have any abdominal tenderness Extremities: No edema is appreciated, - Calf tenderness Assessment and plan: Leukocytosis / Fever - suspected to be 2/2 urinary tract infection - Patient was found to have fever and was experiencing lethargy at [facility] - Upon arrival to the emergency room at [facility]. Patient was found to be febrile - Urine analysis there as well as here reveal that there is evidence of urinary tract infection - Blood cultures 10/20: Preliminary negative at 24 hours; Urine cultures remain pending - Chest x-ray and CT scan brain completed at [facility] have been negative for acute findings - s/p Ceftriaxone at [facility]; will c/w Ceftriaxone (Day #3) Acute renal failure - possibly 2/2 pre-renal etiology, intrarenal etiology, or post-renal etiology - Patient is presented to [facility] with a creatinine of greater than 8 - Patients baseline creatinine was noted to be approximately 1.4 - There is hyperkalemia noted. No evidence of acidosis - Physical does not reveal any signs of fluid overload - Patient has had a CT scan completed at [facility]; bilateral hydro-nephro ureter with soft tissue attenuation obstruction of the ureteral lumen seen in the mid ureter of the left suspicious for transitional cell carcinoma - US abdomen 10/20: Mild to moderate bilateral hydronephrosis. There are no prior examinations for comparison. - CT abdomen / pelvis 10/20: 1. Thickened wall of the distal esophagus. Finding may be related to reflux esophagitis however an esophageal neoplasm should be excluded clinically. 2. There is diffuse pancreatic atrophy. 3. Lemore catheter demonstrated within a glass urinary bladder demonstrates marked thickening of the bladder wall and perivesicular inflammatory changes. Findings consistent with gross cystitis however neoplasm not excluded. In addition there is a right posterior lateral mass contiguous with the right side of the bladder which contains a small amount of air in overall dimensions of 5.1 x 4.4 x 5.5 cm. This may represent neoplasm within the large bladder diverticulum. 4. Bilateral moderate hydroureteronephrosis likely secondary to the above-described bladder findings and right posterolateral bladder mass. 5. Mild prostatic hyperplasia. 6. Circumferential thickening of the rectal wall which should be correlated with digital examination. 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 Solis - Currently patient no outpatient follow up with Oncology; will discuss with Urology out treatment plan / prognosis - Urology on consultation Hypernatremia - Has received a bolus of normal saline in the emergency room - c/w D5 1/2 NS - Will repeat lab work at 4 PM - Nephrology on consultation Hyperkalemia - Patient has received Kayexalate at [facility] - Potassium has improved compared to records from [facility] - EKG without any acute T wave changes; no ischemic changes - Will repeat lab work at 4 PM Macrocytic anemia - Acute drop in hemoglobin - possibly 2/2 dilutional etiology - No evidence of bleeding; no evidence of acute blood loss - B12 levels and Folate levels wnl - Patient's family has indicated that he has a history of anemia and has received transfusions in the past - Received consent over phone with Maddy, the patient's sister - Will transfuse 2 units of PRBC - Will follow Hg Cerebral palsy with profound mental retardation HTN; s/p Hypertensive Crisis - BP significantly improved - c/w Metoprolol DLP - c/w Atorvastatin Neurogenic bladder - s/p Elmore Catheter Anxiety / Behavioral problems - c/w Divalproex Cataracts Osteoporosis - c/w Vitamin D / Calcium supplementation GERD - c/w Protonix DVT prophylaxis - c/w Heparin Disposition: - Will go for Nephrostomy tube placement today on R side Family contact: - Maddy (Sister) [phone] - Joceline ([employer] [facility]) [phone] VS,Fishbone, I+O VS, Fishbone, I+O Laboratory Tests 10/20/18 15:17 Calcium Level 8.5 L 10/20/18 21:43 Calcium Level 8.7 L 10/21/18 05:03 Calcium Level 8.7 L, Red Blood Count 2.16 L, Mean Corpuscular Volume 96.3 H, Mean Corpuscular Hemoglobin 30.6, Mean Corpuscular Hemoglobin Concent 31.7 L, Red Cell Distribution Width 14.0, Neutrophils (%) (Auto) 84.5 H, Lymphocytes (%) (Auto) 5.0 L, Monocytes (%) (Auto) 8.1 H, Eosinophils (%) (Auto) 1.5, Basophils (%) (Auto) 0.2, Neutrophils # (Auto) 20.4 H, Lymphocytes # (Auto) 1.2 L, Monocytes # (Auto) 2.0 H, Eosinophils # (Auto) 0.4, Basophils # (Auto) 0.0 Vital Signs Date Time Temp Pulse Resp B/P (MAP) Pulse Ox O2 Delivery O2 Flow Rate FiO2 10/21/18 09:03 88 142/82 10/21/18 07:51 99.7 19 94 10/20/18 14:13 Room Air I&O- Last 24 Hours up to 6 AM 10/21/18 06:00 Intake Total 2195 ml Output Total 1150 ml Balance 1045 ml ZOHRA MERCADO MD October 21, 2018 12:32
[2018-10-21] MEDS ORDERED: ISOVUE-300 61% 100ML VIAL (Q9967) As Ordered ONE (12:53)
[2018-10-21] MEDS ORDERED: LIDOCAINE 1% MDV 20ML VIAL As Ordered ONE (12:54)
--- NOTE | 2018-10-21 13:38 | IPN ---
DATE: 10/21/2018 SUBJECTIVE: The patient is seen and examined this morning at the bedside. His caregiver from [facility] is present at the bedside as well. He was continued on IV fluids over the course of the night. There is some marginal improvement in his potassium levels this morning; however, there is absolutely no improvement in his renal function. He is scheduled for right sided percutaneous nephrostomy placement later this afternoon. Laboratory studies show worsening anemia. He is receiving packed red blood cell transfusion and primary team is requesting his prior blood work to see if this is an acute anemia or chronic. His stool occult blood did return negative. His heparin was held. The patient himself remains baseline deaf, mute and legally blind and in no distress. Temperature 98.7, pulse 83, respiratory rate 19, blood pressure 142/88, saturating 94 to 99% on room air. Intake yesterday was 1 liter. Urine output yesterday was 875. Thus far today, input of 2 liters and urine output of 575. Weight on the bed scale today is 66.7 kg. GENERAL: The patient is seen lying in bed. Eyes are closely. Arms are drawn across his chest. He is deaf, mute and legally blind. Oral mucosa is dry. Jugular veins are not elevated. CARDIAC: S1, S2. Regular rate and rhythm. No pericardial friction rub. No peripheral edema. The peripheral pulses are palpable. LUNGS: Show symmetric air entry. No crackles, rales or wheeze. ABDOMEN: Soft. He does not grimace to palpation. There is no abdominal distention. There is a Elmore catheter in place draining clear, yellow urine. There are bowel sounds. EXTREMITIES: The lower extremities are negative for edema and show decrease in muscle mass. NEUROLOGIC: He is drowsy and not alert nor oriented. He is noncommunicative/nonverbal at baseline and does not cooperate with physical examination. Profound mental retardation. SKIN: Normal temperature and turgor. LABORATORIES: Sodium 144, potassium 5.5, bicarbonate 23, BUN 104, creatinine 8.9, magnesium 2.2, hemoglobin 6.6, white count 24. Microbiology: Blood cultures with no growth for 24 hours times two sets. Stool occult blood is negative. IMAGING: CT of the abdomen and pelvis, noncontrast, showed bilateral moderate hydroureteronephrosis with a right posterolateral bladder mass and a markedly thickened bladder wall with perivesicular inflammatory changes. INPATIENT MEDICATIONS: He continues on: - ceftriaxone 1 gram IV daily - D5W with 75 mEq of sodium bicarbonate at 150 mL per hour - aspirin 81 mg by mouth daily - atorvastatin 40 mg by mouth at night - Veltassa 16.8 grams by mouth daily His heparin has been held. Remainder of medications are unchanged from prior. PROBLEMS: 1. Nonoliguric renal failure in the setting of bilateral hydroureteronephrosis secondary to malignancy with outside CAT scan apparently revealing a mass encasing the distal right ureter. CT scan done here at [facility] showed a right posterolateral bladder mass as well. He is for a right percutaneous nephrostomy this afternoon with urology. There has been no improvement with renal function over the past 24 hours with Elmore and IV fluid alone and we are hopeful that renal function will improve after nephrostomy has been placed. 2. Hyperkalemia, secondary to renal failure. His potassium has only marginally improved with medical treatment with IV fluids, bicarbonate, Veltassa, Kayexalate. We are unlikely to achieve significant improvement in potassium without relieving the obstructive uropathy. We will continue with IV fluids at present. 3. Severe anemia. I am not sure what his baseline hemoglobin is. Primary team is going to get the records. His stool occult blood was negative. His heparin subcutaneous has been held. He is receiving 1 unit of packed red blood cells this morning. He only has one peripheral IV and I have ordered nursing staff to continue IV fluids during the course of the day and he can receive the second unit of packed red blood cells overnight. There is a concern of course that packed red blood cell transfusion may cause some increase in serum potassium, hence, we will breakup the transfusions and give IV fluids in between and repeat his chemistry as well. 4. Hypernatremia, resolved. Continue hypotonic fluids at the time being. 5. Leukocytosis. He remains with a white count of 24 and maximum temperature (t-max) of 100.2 this morning. Blood cultures are negative times two sets. Urine culture is pending. UA was suspicious. He is already on empiric antimicrobials. He is hemodynamically stable. 6. High grad urothelial carcinoma, status post transurethral resection of bladder tumor with possible metastatic lesion on the liver and with present bilateral hydroureteronephrosis secondary to malignancy causing obstruction. As per urology, the patient is for percutaneous nephrostomy on the right side today. 7. Profound mental retardation, deaf, mute, and legally blind. We will continue to update his sister in regard to his clinical condition.
[2018-10-21] MEDS: cefTRIAXone SOD 1 GM in D5W MINI-BAG PLUS 50 ML IV SCH (14:59)
[2018-10-21 18:55] LABS: CALCIUM LEVEL 8.6 MG/DL (8.8-10.2); CREATININE FOR GFR 8.8 MG/DL (0.70-1.30); GLOMERULAR FILTRATION RATE 6.3 (>42); POTASSIUM SERUM 5.5 MEQ/L (3.5-5.1)
[2018-10-21] MEDS: ATORVASTATIN 20 MG TAB PO SCH (20:12)
[2018-10-22] VITALS: BP 162/86
[2018-10-22] MEDS: SODIUM BICARBONATE 75 MEQ in D5W 1,000 ML IV SCH ×3 (03:26→20:18)
[2018-10-22 04:00] VITALS: BP 148/71
[2018-10-22 06:09] LABS: HEMATOCRIT 27.3 % (42.0-52.0); MEAN CORPUSCULAR HEMOGLOBIN 30.2 pg (27.0-33.0); MEAN CORPUSCULAR HGB CONC 34.4 g/dl (32.0-36.5); MEAN CORPUSCULAR VOLUME 87.8 fl (80.0-96.0); PLATELET COUNT, AUTOMATED 371 10^3/uL (150-450); RED BLOOD COUNT 3.11 10^6/uL (4.30-6.10)
[2018-10-22 06:11] LABS: HEMOGLOBIN 9.4 g/dl (13.5-17.5)
[2018-10-22 06:34] LABS: ANISOCYTOSIS 1+; EOSINOPHILS 2 % (0-5); LYMPHOCYTES 6 % (16-52); MONOCYTES 6 % (0-8); NEUTROPHILS 86 % (35-75); PLATELET ESTIMATE NORMAL (NORMAL)
[2018-10-22] MEDS: ACETAMINOPHEN TAB 650MG DOSE (2X325MG) PO PRN (06:40)
[2018-10-22 06:49] LABS: CALCIUM LEVEL 8.6 MG/DL (8.8-10.2); CREATININE FOR GFR 9.13 MG/DL (0.70-1.30); GLOMERULAR FILTRATION RATE 6.1 (>42); POTASSIUM SERUM 4.8 MEQ/L (3.5-5.1)
[2018-10-22 08:00] VITALS: BP 158/70
[2018-10-22] MEDS: METOPROLOL SUCC *XL* 25MG TAB (TopROL *XL*) PO SCH (08:11)
[2018-10-22] MEDS: ASPIRIN 81 MG ENTERIC TAB PO SCH (08:11)
[2018-10-22] MEDS: MULTIVITAMINS/MINERALS THERAP 1 TAB PO SCH (08:11)
[2018-10-22] MEDS: DIVALPROEX SPRINKLE 125 MG CAP PO SCH ×2 (08:11→20:18)
[2018-10-22] MEDS: PANTOPRAZOLE 40MG INJ (PROTONIX) (C9113) IV SCH ×2 (08:12→20:18)
[2018-10-22] MEDS: HEPARIN SOD (PORCINE) 5000 UNITS/ML VIAL SC SCH ×2 (09:00→20:18)
--- NOTE | 2018-10-22 10:44 | IPNPDOC ---
Text Note Date of Service The patient was seen on 10/22/18. 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 Patient initially presented to the ER at [facility] ([facility]) because he was experiencing fevers and reported lethargy. Upon arrival at [facility] patient received imaging that revealed mass encasing the distal right ureter and lesions in the liver suspicious for metastatic disease. His lab work was also significant for renal failure with a Creatinine of >8.0. Patient was transferred over to [facility] where he was evaluated by urology. Patient was admitted to hospitalist service for further evaluation and treatment. Urology and nephrology were called on consultation. Patient was seen and examined at the bedside. Patient again does not make any comment sounds. Cannot communicate. Patient's bedside sitter is present, and I have addressed their questions and concerns. Objective: Vitals (See below) General: Lying in bed, no acute distress, appears comfortable, awake / alert HEENT: NC, AT CVS: air entry is fair bilaterally without evidence of rhonchi, wheezing or rales Abdomen: Abdomen remains soft without distention or tenderness appreciated Extremities: Lower extremities are without edema, - Calf tenderness Assessment and plan: Leukocytosis / Fever - suspected to be 2/2 urinary tract infection - Patient was found to have fever and was experiencing lethargy at [facility] - Upon arrival to the emergency room at [facility]. Patient was found to be febrile - Urine analysis there as well as here reveal that there is evidence of urinary tract infection - Blood cultures 10/20: Preliminary remain negative at 24 hours; Urine cultures remain pending - Chest x-ray and CT scan brain completed at [facility] have been negative for acute findings - c/w Ceftriaxone (Day #4) Acute renal failure - possibly 2/2 pre-renal etiology, intrarenal etiology, or post-renal etiology - Patient is presented to [facility] with a creatinine of greater than 8 - Patients baseline creatinine was noted to be approximately 1.4 - There is hyperkalemia noted. No evidence of acidosis - Physical does not reveal any signs of fluid overload - Patient has had a CT scan completed at [facility]; bilateral hydro-nephro ureter with soft tissue attenuation obstruction of the ureteral lumen seen in the mid ureter of the left suspicious for transitional cell carcinoma - US abdomen 10/20: Mild to moderate bilateral hydronephrosis. There are no p rior examinations for comparison. - CT abdomen / pelvis 10/20: 1. Thickened wall of the distal esophagus. Finding may be related to reflux esophagitis however an esophageal neoplasm should be excluded clinically. 2. There is diffuse pancreatic atrophy. 3. Elmore catheter demonstrated within a glass urinary bladder demonstrates marked thickening of the bladder wall and perivesicular inflammatory changes. Findings consistent with gross cystitis however neoplasm not excluded. In addition there is a right posterior lateral mass contiguous with the right side of the bladder which contains a small amount of air in overall dimensions of 5.1 x 4.4 x 5.5 cm. This may represent neoplasm within the large bladder diverticulum. 4. Bilateral moderate hydroureteronephrosis likely secondary to the above-described bladder findings and right posterolateral bladder mass. 5. Mild prostatic hyperplasia. 6. Circumferential thickening of the rectal wall which should be correlated with digital examination. 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 Solis - Currently patient no outpatient follow up with Oncology; will discuss with Urology out treatment plan / prognosis - Urology on consultation Hypernatremia - Has received a bolus of normal saline in the emergency room - c/w D5 1/2 NS - Will repeat lab work at 4 PM - Nephrology on consultation Hyperkalemia - Patient has received Kayexalate at [facility] - Potassium has improved compared to records from [facility] - EKG without any acute T wave changes; no ischemic changes - Will repeat lab work at 4 PM Macrocytic anemia - Acute drop in hemoglobin - possibly 2/2 dilutional etiology - No evidence of bleeding; no evidence of acute blood loss - B12 levels and Folate levels wnl - Patient's family has indicated that he has a history of anemia and has received transfusions in the past - Received consent over phone with Maddy, the patient's sister - s/p 2 units PRBC - Hg has improved appropriately Cerebral palsy with profound mental retardation HTN; s/p Hypertensive Crisis - BP significantly improved - c/w Metoprolol DLP - c/w Atorvastatin Neurogenic bladder - s/p Elmore Catheter Anxiety / Behavioral problems - c/w Divalproex Cataracts Osteoporosis - c/w Vitamin D / Calcium supplementation GERD - c/w Protonix DVT prophylaxis - c/w Heparin Disposition: - Nephrostomy tube placement has been rescheduled for today - Discussed with Maddy; will get Palliative care consultation for discussion of options Family contact: - Maddy (Sister) [phone] - Joceline ([place] helpers at [facility]) [phone] VS,Fishbone, I+O VS, Fishbone, I+O Laboratory Tests 10/21/18 18:15 Calcium Level 8.6 L 10/22/18 05:44 Calcium Level 8.6 L, Red Blood Count 3.11 L, Mean Corpuscular Volume 87.8, Mean Corpuscular Hemoglobin 30.2, Mean Corpuscular Hemoglobin Concent 34.4, Red Cell Distribution Width 15.9 H, Monocytes # (Auto) Vital Signs Date Time Temp Pulse Resp B/P (MAP) Pulse Ox O2 Delivery O2 Flow Rate FiO2 10/22/18 08:00 98.5 83 20 158/70 (99) 95 10/20/18 14:13 Room Air I&O- Last 24 Hours up to 6 AM 10/22/18 06:00 Intake Total 1080 ml Output Total 1750 ml Balance -670 ml ZOHRA MERCADO MD October 22, 2018 10:44
--- NOTE | 2018-10-22 11:52 | IPN ---
DATE: 10/22/2018 SUBJECTIVE: Patient seen and examined this morning at the bedside. The caregiver from [facility] is present. There are no reported overnight events. He is nothing by mouth for right-sided nephrostomy placement. Labs show normalization of potassium. There is no improvement in renal function since admission. Patient again, is non communicative at baseline, deaf, mute, and legally blind. VITAL SIGNS: Temperature maximum temperature (T-max) 100.5, pulse 108, respiratory rate 20, blood pressure 148/71, saturating 92-95% on room air. Intake yesterday was 2.2 liters, urine output yesterday was 1.6 liters, net negative 500, weight on the bed scale today 69.7 kg. GENERAL: Patient is seen lying in bed. Eyes are closed. He is noncommunicative and does not interact, deaf, mute and legally blind. Jugular veins are not elevated. CARDIAC: S1, S2, regular rate and rhythm. No pericardial friction rub. No peripheral edema. LUNGS: Show symmetric air entry. No crackles, rales or wheezes. No tachypnea. ABDOMEN: The abdomen is soft. He does not grimace to palpation. There is no abdominal distention. There is a Elmore catheter in place draining clear yellow urine. EXTREMITIES: The extremities are negative for edema and show decreased in lean muscle mass. NEUROLOGIC: He is not alert, nor oriented. There is profound mental retardation. SKIN: Normal turgor and temperature. LABS: Sodium 136, potassium 4.8, bicarbonate 24, BUN 94, creatinine 9.1, magnesium 2.0, hemoglobin 9.4. IMPATIENT MEDICATIONS: I am cutting the rate of IV fluids down to 75 mL/h. His remainder of medications are unchanged from prior. PROBLEMS: 1. Nonoliguric renal failure in the setting of bilateral hydroureteronephrosis secondary to malignancy with outside CT scan revealing a mass encasing the distal right ureter and CT scan done here showing a right posterolateral bladder mass as well. He is for right percutaneous nephrostomy placement this afternoon. There has been no improvement in renal function since admission with a Elmore catheter and IV fluid alone and we are hopeful that renal function will start to improve after the nephrostomy has been placed. 2. Hyperkalemia secondary to renal failure: It is improved with IV fluids, bicarbonate, and Veltassa. I am decreasing the rate of IV fluids today down to 75 mL/h. 3. Hypernatremia: It is resolved. His sodium is actually down to 136 and I am cutting down the rate of hypotonic fluids in view of corrected potassium level and acceptable sodium levels. 4. Severe anemia: Has improved with packed red blood cell transfusion. Stool for occult blood was negative. Further workup as per primary team. 5. Leukocytosis and low grade fever: Blood cultures are negative times two sets. Urine culture is still pending. He continues on empiric antimicrobial. He is hemodynamically stable. 6. High grade urothelial carcinoma: Status post transurethral resection of bladder tumor with possible metastatic lesion on the liver and present bilateral hydroureteronephrosis secondary to malignancy causing obstruction. As per urology, the patient is for percutaneous nephrostomy on the right side today.
[2018-10-22 12:00] VITALS: BP 188/98
[2018-10-22] MEDS: PATIROMER SORBITEX CALCIUM 8.4 GM POWDER PACKET (VELTASSA) PO SCH (12:00)
[2018-10-22] MEDS ORDERED: ACETAMINOPHEN 650 MG SUPP PR PRN (12:15)
[2018-10-22] MEDS ORDERED: ACETAMINOPHEN 650 MG SUPP As Ordered ONE (12:22)
[2018-10-22] MEDS ORDERED: LIDOCAINE 1% MDV 20ML VIAL As Ordered ONE ×2 (13:13→14:16)
[2018-10-22] MEDS ORDERED: ISOVUE-300 61% 100ML VIAL (Q9967) As Ordered ONE (13:13)
[2018-10-22] MEDS ORDERED: MIDAZOLAM INJ 2 MG/2 ML VIAL (J2250) As Ordered ONE (13:40)
[2018-10-22] MEDS ORDERED: fentaNYL 100 MCG/2 ML INJECTION (J3010) As Ordered ONE (13:40)
[2018-10-22] MEDS ORDERED: NORCO, ANEXSIA 5/325MG TABLET (HYDROcodone/ACETAMINOPHEN) PO PRN (15:00)
[2018-10-22] MEDS ORDERED: LR 1,000 ML IV SCH (15:00)
[2018-10-22] MEDS ORDERED: ONDANSETRON 4MG/2ML VIAL (J2405) IV PRN (15:00)
[2018-10-22 16:00] VITALS: BP 140/75
[2018-10-22] MEDS: cefTRIAXone SOD 1 GM in D5W MINI-BAG PLUS 50 ML IV SCH (16:09)
[2018-10-22 20:00] VITALS: BP 165/85
[2018-10-22] MEDS: ATORVASTATIN 20 MG TAB PO SCH (20:17)
[2018-10-23] VITALS: BP 172/86
[2018-10-23 06:22] LABS: BASO % 0.2 % (0.0-1.0); EOS # 0.2 10^3/uL (0.0-0.50); EOS % 0.7 % (0.0-3.0); HEMATOCRIT 31.9 % (42.0-52.0); HEMOGLOBIN 10.8 g/dl (13.5-17.5); LYMPH # 0.5 10^3/uL (1.5-4.5); LYMPH % 2.1 % (24.0-44.0); MEAN CORPUSCULAR HEMOGLOBIN 29.8 pg (27.0-33.0); MEAN CORPUSCULAR HGB CONC 33.9 g/dl (32.0-36.5); MEAN CORPUSCULAR VOLUME 87.9 fl (80.0-96.0); MONO # 1.5 10^3/uL (0.0-0.8); MONO % 6.1 % (0.0-5.0); NEUTROPHILS # 22.7 10^3/uL (1.8-7.7); NEUTROPHILS % 90.1 % (36.0-66.0); PLATELET COUNT, AUTOMATED 410 10^3/uL (150-450); RED BLOOD COUNT 3.63 10^6/uL (4.30-6.10); WHITE BLOOD COUNT 25.2 10^3/uL (4.0-10.0)
[2018-10-23 06:53] LABS: CALCIUM LEVEL 8.7 MG/DL (8.8-10.2); CREATININE FOR GFR 9.42 MG/DL (0.70-1.30); GLOMERULAR FILTRATION RATE 5.9 (>42); MAGNESIUM LEVEL 1.8 MG/DL (1.8-2.4); POTASSIUM SERUM 4.6 MEQ/L (3.5-5.1)
[2018-10-23] MEDS: HEPARIN SOD (PORCINE) 5000 UNITS/ML VIAL SC SCH ×2 (08:00→21:48)
[2018-10-23] MEDS: ASPIRIN 81 MG ENTERIC TAB PO SCH (08:00)
[2018-10-23] MEDS: PANTOPRAZOLE 40MG INJ (PROTONIX) (C9113) IV SCH ×2 (08:00→21:47)
[2018-10-23] MEDS: MULTIVITAMINS/MINERALS THERAP 1 TAB PO SCH (08:00)
[2018-10-23] MEDS: DIVALPROEX SPRINKLE 125 MG CAP PO SCH ×2 (08:00→21:50)
[2018-10-23 09:00] VITALS: BP 126/60
[2018-10-23] MEDS: METOPROLOL SUCC *XL* 25MG TAB (TopROL *XL*) PO SCH (09:27)
[2018-10-23 12:00] VITALS: BP 131/84
--- NOTE | 2018-10-23 12:07 | IPNPDOC ---
Text Note Date of Service The patient was seen on 10/23/18. 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 Patient initially presented to the ER at [facility] ([facility]) because he was experiencing fevers and reported lethargy. Upon arrival at [facility] patient received imaging that revealed mass encasing the distal right ureter and lesions in the liver suspicious for metastatic disease. His lab work was also significant for renal failure with a Creatinine of >8.0. Patient was transferred over to [facility] where he was evaluated by urology. Patient was admitted to hospitalist service for further evaluation and treatment. Urology and nephrology were called on consultation. Patient was seen and examined at the bedside. Patient remains nonverbal, is making compensable sounds. Appears to be in pain Objective: Vitals (See below) General: Lying in bed, appears to be uncomfortable / in pain, awake / alert HEENT: NC, AT CVS: There appears to be fair air entry bilaterally, without auscultated evidence of wheezing, rales or rhonchi Abdomen: Soft without distention or tenderness Extremities: No evidence of lower extremity edema, - Calf tenderness Assessment and plan: Leukocytosis / Fever - suspected to be 2/2 urinary tract infection - Patient was found to have fever and was experiencing lethargy at [facility] - Upon arrival to the emergency room at [facility]. Patient was found to be febrile - Urine analysis there as well as here reveal that there is evidence of urinary tract infection - Blood cultures 10/20: Negative at 72 hours; Urine cultures 10/20: Aerococcus urinae - Chest x-ray and CT scan brain completed at [facility] have been negative for acute findings - Will start Cefepime (Day #1); Will DC Ceftriaxone (Received 5 days) Acute renal failure - possibly 2/2 pre-renal etiology, intrarenal etiology, or post-renal etiology - Patients baseline creatinine was noted to be approximately 1.4 - Physical does not reveal any signs of fluid overload - Patient has had a CT scan completed at [facility]; bilateral hydro-nephro ureter with soft tissue attenuation obstruction of the ureteral lumen seen in the mid ureter of the left suspicious for transitional cell carcinoma - US abdomen 10/20: Mild to moderate bilateral hydronephrosis. There are no prior examinations for comparison. - CT abdomen / pelvis 10/20: 1. Thickened wall of the distal esophagus. Finding may be related to reflux esophagitis however an esophageal neoplasm should be excluded clinically. 2. There is diffuse pancreatic atrophy. 3. Elmore catheter demonstrated within a glass urinary bladder demonstrates marked thickening of the bladder wall and perivesicular inflammatory changes. Findings consistent with gross cystitis however neoplasm not excluded. In addition there is a right posterior lateral mass contiguous with the right side of the bladder which cont ains a small amount of air in overall dimensions of 5.1 x 4.4 x 5.5 cm. This may represent neoplasm within the large bladder diverticulum. 4. Bilateral moderate hydroureteronephrosis likely secondary to the above-described bladder findings and right posterolateral bladder mass. 5. Mild prostatic hyperplasia. 6. Circumferential thickening of the rectal wall which should be correlated with digital examination. - Patient has had a Elmore catheter placed - Discussed with IR patient is scheduled for Nephrostomy tube placement on the right side; - Nephrology and Urology on consultation - I have discussed the case with Maddy (Sister); advised her that patient will require a Nephrostomy tube as the obstruction is much more superior than where the Elmore can correct obstruction - s/p R sided nephrostomy tube placement 10/22 with IR - Despite nephrostomy tube placement, patient's renal function has failed to improve significantly. 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 Solis - Currently patient no outpatient follow up with Oncology; will discuss with Urology out treatment plan / prognosis - Urology on consultation s/p Hypernatremia - Has received a bolus of normal saline in the emergency room - Nephrology on consultation s/p Hyperkalemia Macrocytic anemia - Acute drop in hemoglobin - possibly 2/2 dilutional etiology - No evidence of bleeding; no evidence of acute blood loss - B12 levels and Folate levels wnl - Patient's family has indicated that he has a history of anemia and has receive d transfusions in the past - Received consent over phone with Maddy, the patient's sister - s/p 2 units PRBC - Hg has improved appropriately Cerebral palsy with profound mental retardation HTN; s/p Hypertensive Crisis - BP significantly improved - c/w Metoprolol DLP - c/w Atorvastatin Neurogenic bladder - s/p Elmore Catheter Anxiety / Behavioral problems - c/w Divalproex Cataracts Osteoporosis - c/w Vitamin D / Calcium supplementation GERD - c/w Protonix DVT prophylaxis - c/w Heparin Disposition: - Nephrostomy tube placement has been rescheduled for today - Discussed with Maddy; will get Palliative care consultation for discussion of options - PFS and case management working on establishing healthcare proxy Family contact: - Maddy (Sister) [phone] - Joceline ([place] helpers at [facility]) [phone] VS,Johan, I+O VS, Johan, I+O Laboratory Tests 10/23/18 06:01 Red Blood Count 3.63 L, Mean Corpuscular Volume 87.9, Mean Corpuscular Hemoglobin 29.8, Mean Corpuscular Hemoglobin Concent 33.9, Red Cell Distribution Width 15.4 H, Neutrophils (%) (Auto) 90.1 H, Lymphocytes (%) (Auto) 2.1 L, Monocytes (%) (Auto) 6.1 H, Eosinophils (%) (Auto) 0.7, Basophils (%) (Auto) 0.2, Neutrophils # (Auto) 22.7 H, Lymphocytes # (Auto) 0.5 L, Monocytes # (Auto) 1.5 H, Eosinophils # (Auto) 0.2, Basophils # (Auto) 0.0, Calcium Level 8.7 L Vital Signs Date Time Temp Pulse Resp B/P (MAP) Pulse Ox O2 Delivery O2 Flow Rate FiO2 10/23/18 09:27 112 126/60 10/23/18 09:00 99.2 19 92 10/22/18 15:02 3 10/20/18 14:13 Room Air l I&O- Last 24 Hours up to 6 AM 10/23/18 06:00 Intake Total 1075 ml Output Total 3800 ml Balance -2725 ml ZOHRA MERCADO MD October 23, 2018 12:07
[2018-10-23] MEDS ORDERED: MORPHINE 4 MG/ML 1ML VIAL/SYRINGE (J2270) IV PRN (12:15)
[2018-10-23] MEDS ORDERED: CEFEPIME HCL 1 GM in D5W MINI-BAG PLUS 50 ML IV SCH (13:00)
--- NOTE | 2018-10-23 13:30 | IPN ---
DATE OF SERVICE: 10/23/2018 SUBJECTIVE: Patient seen and examined this morning at the bedside. He received a right percutaneous nephrostomy yesterday. There is no significant improvement in renal function over the course of the admission. There is [employer] Caregiver at the bedside who reports that the patient was restless this morning and did not want to have any of his diet. The patient continues to spike low grade fever. Maximum temperature (Tmax) this morning was 100.6. Vital signs: 100.6 temperature, pulse 100, respiratory rate 19, blood pressure 126/60, saturating 92-97% on room air. Intake yesterday was only 550. Urine output yesterday to the Elmore catheter was 1850 and output to the right nephrostomy was 1250, net negative 2.5 liters. Weight in the bed scale today is not recorded. General: The patient is seen lying in bed, eyes closed, drowsy, noncommunicative, does not interact, deaf, mute, legally blind. Caregiver present at bedside. Jugular veins are not elevated. Oral mucosa is dry. Cardiac: Mild tachycardia, regular rate and rhythm. No pericardial friction rub. No peripheral edema. Lungs: Show symmetric air entry that is of coarse. There is no wheeze. Abdomen is soft. He does not grimace to palpation. There is a Elmore catheter in place draining urine. There is a right-sided nephrostomy tube draining urine that is clear yellow. The extremities are negative for edema and show decrease in muscle mass. Neurologic: There is profound mental retardation. He is neither alert nor oriented. LABORATORY DATA: Sodium 137, potassium 4.6, bicarbonate 25, BUN 94, creatinine 9.4, magnesium 1.8. Hemoglobin 10.8, white count 25. urine culture grew Aerococcus urinae. Right nephrostomy culture is pending. INPATIENT MEDICATIONS: Continues on D5W with 75 mEq of sodium bicarbonate. The rate was slightly increased to mL/h. His remainder of medications are unchanged from prior. PROBLEMS: 1. Nonoliguric renal failure in the setting of bilateral hydroureteronephrosis secondary to malignancy with outside CT scan revealing a mass encasing the distal right ureter and CT scan done here showing a right posterolateral bladder mass status post right percutaneous nephrostomy yesterday. He is having improving output from the right nephrostomy, however, overall there has been no improvement in renal function since admission. If renal function does not start to improve in the coming 24 hours, would discuss with urology for placement of left nephrostomy. We will continue IV fluids at this time. 2. Hyperkalemia secondary to renal failure. It is now improved with bicarbonate containing IV fluids and Veltassa. His caregiver reports that the patient has not been having much oral intake at all, so I am continuing him on IV fluids at this time and the rate has been slightly increased. 3. Anemia. It is improved with packed red blood cell transfusions. Stool occult blood was negative. Further workup is as per primary team. 4. Ongoing leukocytosis and low grade fever. White count remains elevated at 25. Blood cultures have been negative times two sets. His urine culture grew Aerococcus urinae. Antimicrobials are as per primary team. He is hemodynamically stable but continues to spike low grade temperatures. Additional culture taken from the right nephrostomy is pending.
[2018-10-23] MEDS: CEFEPIME HCL 1 GM in D5W MINI-BAG PLUS 50 ML IV SCH (13:31)
[2018-10-23] MEDS: PATIROMER SORBITEX CALCIUM 8.4 GM POWDER PACKET (VELTASSA) PO SCH (13:31)
[2018-10-23 16:00] VITALS: BP 126/68
[2018-10-23] MEDS: SODIUM BICARBONATE 75 MEQ in D5W 1,000 ML IV SCH (17:33)
[2018-10-23 20:00] VITALS: BP 130/68
[2018-10-23] MEDS: ATORVASTATIN 20 MG TAB PO SCH (21:48)
[2018-10-23] MEDS: ACETAMINOPHEN TAB 650MG DOSE (2X325MG) PO PRN (21:49)
[2018-10-23 23:59] VITALS: BP 135/72
[2018-10-24 04:00] VITALS: BP 163/70
[2018-10-24] MEDS: SODIUM BICARBONATE 75 MEQ in D5W 1,000 ML IV SCH (04:39)
[2018-10-24 05:18] LABS: BASO # 0.1 10^3/uL (0.0-0.2); BASO % 0.2 % (0.0-1.0); EOS # 0.7 10^3/uL (0.0-0.50); EOS % 2.7 % (0.0-3.0); HEMATOCRIT 31.5 % (42.0-52.0); HEMOGLOBIN 10.5 g/dl (13.5-17.5); LYMPH % 4.3 % (24.0-44.0); MEAN CORPUSCULAR HEMOGLOBIN 30.4 pg (27.0-33.0); MEAN CORPUSCULAR HGB CONC 33.3 g/dl (32.0-36.5); MEAN CORPUSCULAR VOLUME 91.3 fl (80.0-96.0); MONO # 1.5 10^3/uL (0.0-0.8); NEUTROPHILS # 20.8 10^3/uL (1.8-7.7); NEUTROPHILS % 85.7 % (36.0-66.0); PLATELET COUNT, AUTOMATED 387 10^3/uL (150-450); RED BLOOD COUNT 3.45 10^6/uL (4.30-6.10); WHITE BLOOD COUNT 24.3 10^3/uL (4.0-10.0)
[2018-10-24 05:40] LABS: CALCIUM LEVEL 8.5 MG/DL (8.8-10.2); CREATININE FOR GFR 9.16 MG/DL (0.70-1.30); GLOMERULAR FILTRATION RATE 6.1 (>42); MAGNESIUM LEVEL 1.9 MG/DL (1.8-2.4)
[2018-10-24 08:00] VITALS: BP 165/85
[2018-10-24] MEDS: NS 0.45% 1,000 ML IV SCH ×2 (09:19→19:51)
[2018-10-24] MEDS: HEPARIN SOD (PORCINE) 5000 UNITS/ML VIAL SC SCH ×2 (09:25→20:58)
[2018-10-24] MEDS: ASPIRIN 81 MG ENTERIC TAB PO SCH (09:27)
[2018-10-24] MEDS: METOPROLOL SUCC *XL* 25MG TAB (TopROL *XL*) PO SCH (09:27)
[2018-10-24] MEDS: MULTIVITAMINS/MINERALS THERAP 1 TAB PO SCH (09:27)
[2018-10-24] MEDS: PANTOPRAZOLE 40MG INJ (PROTONIX) (C9113) IV SCH ×2 (09:28→20:57)
[2018-10-24] MEDS: DIVALPROEX SPRINKLE 125 MG CAP PO SCH ×2 (09:28→20:57)
--- NOTE | 2018-10-24 11:19 | IPNPDOC ---
Text Note Date of Service The patient was seen on 10/24/18. 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 Patient initially presented to the ER at [facility] ([facility]) because he was experiencing fevers and reported lethargy. Upon arrival at [facility] patient received imaging that revealed mass encasing the distal right ureter and lesions in the liver suspicious for metastatic disease. His lab work was also significant for renal failure with a Creatinine of >8.0. Patient was transferred over to [facility] where he was evaluated by urology. Patient was admitted to hospitalist service for further evaluation and treatment. Urology and nephrology were called on consultation. Patient was seen and examined at the bedside. Patient appears to be comfortable, again remains non-verbal, but makes incompressible sounds. Objective: Vitals (See below) General: Lying in bed, appears to be uncomfortable / in pain, awake / alert HEENT: NC, AT CVS: No evidence of wheezing, rales or rhonchi. Fair air entry bilaterally Abdomen: No distention or tenderness, remains soft Back: R nephrostomy tube with dressing in place Extremities: Lower extremity edema not appreciated, - Calf tenderness Assessment and plan: Leukocytosis / Fever - suspected to be 2/2 urinary tract infection - Patient was found to have fever and was experiencing lethargy at [facility] - Upon arrival to the emergency room [facility] patient was found to be febrile; while inpatient. His express low-grade temperatures - Urine analysis there as well as here reveal that there is evidence of urinary tract infection - Blood cultures 10/20: Negative at 72 hours; Urine cultures 10/20: Aerococcus urinae; Culture from R kidney 10/22: Negative - Chest x-ray and CT scan brain completed at [facility] have been negative for acute findings - c/w Cefepime (Day #2); s/p Ceftriaxone (Received 5 days) Acute renal failure - possibly 2/2 pre-renal etiology, intrarenal etiology, or post-renal etiology - Patients baseline creatinine was noted to be approximately 1.4 - Physical does not reveal any signs of fluid overload - No electrolyte abdomen is her acid base abnormalities to suggest urgent dialysis - Patient has had a CT scan completed at [facility]; bilateral hydro-nephro ureter with soft tissue attenuation obstruction of the ureteral lumen seen in the mid ureter of the left suspicious for transitional cell carcinoma - US abdomen 10/20: Mild to moderate bilateral hydronephrosis. There are no prior examinations for comparison. - CT abdomen / pelvis 10/20: 1. Thickened wall of the distal esophagus. Finding may be related to reflux esophagitis however an esophageal neoplasm should be excluded clinically. 2. There is diffuse pancreatic atrophy. 3. Elmore catheter demonstrated within a glass urinary bladder demonstrates marked thickening of the bladder wall and perivesicular inflammatory changes. Findings consistent with gross cystitis however neoplasm not excluded. In addition there is a right posterior lateral mass contiguous with the right side of the bladder which contains a small amount of air in overall dimensions of 5.1 x 4.4 x 5.5 cm. This may represent neoplasm within the large bladder diverticulum. 4. Bilateral moderate hydroureteronephrosis likely secondary to the above-described bladder findings and right posterolateral bladder mass. 5. Mild prostatic hyperplasia. 6. Circumferential thickening of the rectal wall which should be correlated with digital examination. 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 Solis - Currently patient no outpatient follow up with Oncology - Urology on consultation s/p Hypernatremia - Has received a bolus of normal saline in the emergency room - Nephrology on consultation s/p Hyperkalemia Macrocytic anemia - Acute drop in hemoglobin - possibly 2/2 dilutional etiology - No evidence of bleeding; no evidence of acute blood loss - B12 levels and Folate levels wnl - Patient's family has indicated that he has a history of anemia and has received transfusions in the past - Received consent over phone with Maddy, the patient's sister - s/p 2 units PRBC - Hg remains stable Cerebral palsy with profound mental retardation HTN; s/p Hypertensive Crisis - BP significantly improved - c/w Metoprolol DLP - c/w Atorvastatin Neurogenic bladder - s/p Elmore Catheter Anxiety / Behavioral problems - c/w Divalproex Cataracts Osteoporosis - c/w Vitamin D / Calcium supplementation GERD - c/w Protonix DVT prophylaxis - c/w Heparin Disposition: - PFS and case management working on establishing healthcare proxy with [employer] and Maddy Family contact: - Maddy (Sister) [phone] - Joceline ([employer] [facility]) [phone] VS,Fishbone, I+O VS, Fishbone, I+O Laboratory Tests 10/24/18 04:57 Red Blood Count 3.45 L, Mean Corpuscular Volume 91.3, Mean Corpuscular Hemoglobin 30.4, Mean Corpuscular Hemoglobin Concent 33.3, Red Cell Distribution Width 15.0 H, Neutrophils (%) (Auto) 85.7 H, Lymphocytes (%) (Auto) 4.3 L, Monocytes (%) (Auto) 6.0 H, Eosinophils (%) (Auto) 2.7, Basophils (%) (Auto) 0.2, Neutrophils # (Auto) 20.8 H, Lymphocytes # (Auto) 1.0 L, Monocytes # (Auto) 1.5 H, Eosinophils # (Auto) 0.7 H, Basophils # (Auto) 0.1, Calcium Level 8.5 L Vital Signs Date Time Temp Pulse Resp B/P (MAP) Pulse Ox O2 Delivery O2 Flow Rate FiO2 10/24/18 09:27 102 165/85 10/24/18 08:00 99.1 22 94 10/22/18 15:02 3 10/20/18 14:13 Room Air I&O- Last 24 Hours up to 6 AM 10/24/18 06:00 Intake Total 2310 ml Output Total 4525 ml Balance -2215 ml ZHORA MERCADO MD October 24, 2018 11:19
[2018-10-24 12:00] VITALS: BP 164/81
[2018-10-24] MEDS: CEFEPIME HCL 1 GM in D5W MINI-BAG PLUS 50 ML IV SCH (13:31)
[2018-10-24 15:16] LABS: HEMATOCRIT 32.7 % (42.0-52.0)
--- NOTE | 2018-10-24 15:47 | IPN ---
DATE: 10/24/2018 SUBJECTIVE: The patient is seen and examined this morning at the bedside. His caregiver from [facility] is present. Reports that the patient cleared his breakfast tray this morning. I note he has postobstructive diuresis from the right nephrostomy and his IV fluids are being changed in view of the same. Renal function does show some very marginal improvement. VITAL SIGNS: Temperature 99.1, pulse 102, respiratory rate 22, blood pressure 165/85, saturating 94% on room air. Intake yesterday was two liters, urine output yesterday was 4.3 liters. The vast majority of which was from the right nephrostomy. Weight in the bed scale today 68 kg which is decreased from prior. GENERAL: The patient is seen lying in bed, not awake, not alert, not oriented, deaf, mute, legally blind, caregiver is present at the bedside. Jugular veins are not elevated. Heart sounds are tachycardiac but regular rate and rhythm. There is no pericardial friction rub. No peripheral edema. Lungs show symmetric air entry. There is no wheeze or crackle. The abdomen is soft. He does not grimace to palpation. There is a right-sided nephrostomy tube draining pinkish-tinged urine. There is a Elmore catheter in place. The lower extremities are negative for edema and show decrease in muscle mass. NEUROLOGIC: There is profound mental retardation. LABORATORY DATA: Sodium 140, potassium 4.0, bicarbonate 31, BUN 89, creatinine 9.1, magnesium 1.9, hemoglobin 10.5. Right nephrostomy urine culture showed no growth. INPATIENT MEDICATIONS: I have discontinued his hypotonic bicarbonate-containing fluid and started him on half normal saline (NS) at 80 mL an hour. Primary team has change the antibiotics to cefepime 1 gram IV daily and I have discontinued the Veltassa. PROBLEMS: 1. Nonoliguric renal failure in the setting of bilateral hydroureteronephrosis, secondary to malignancy, status post right percutaneous nephrostomy, now with postobstructive diuresis from the right nephrostomy and very slight and marginal improvement in renal function. IV fluids are being changed to half-normal saline and we will keep up with the postobstructive diuresis. I am hopeful that we will see further improvement in renal function in the coming 24 hours. If not then will discuss with urology for placement of left nephrostomy. 2. Hyperkalemia secondary to renal failure. It has resolved. I am stopping the bicarbonate-containing fluids and the Veltassa. He is now having postobstructive diuresis and he is on half-normal saline. 3. Leukocytosis and low-grade fevers. Culture taken from the right nephrostomy shows no growth. Blood cultures show no growth. His urine culture from the Elmore grew Aerococcus urinae and he is on cefepime as managed by the primary team. His white count remains persistently elevated. 4. Hypertension. Blood pressures have been elevated this morning. Continue with metoprolol. I expect as he continues to diuresis and has improvement in renal function, his blood pressures should likewise improve as well.
[2018-10-24 16:00] VITALS: BP 156/80
[2018-10-24 20:00] VITALS: BP 161/92
[2018-10-24] MEDS: ATORVASTATIN 20 MG TAB PO SCH (20:57)
[2018-10-24] MEDS: ACETAMINOPHEN TAB 650MG DOSE (2X325MG) PO PRN (20:57)
[2018-10-24 23:59] VITALS: BP 145/79
[2018-10-25] MEDS: NS 0.45% 1,000 ML IV SCH ×4 (03:01→22:22)
[2018-10-25 04:00] VITALS: BP 142/81
[2018-10-25 06:01] LABS: BASO # 0.1 10^3/uL (0.0-0.2); BASO % 0.4 % (0.0-1.0); EOS # 0.9 10^3/uL (0.0-0.50); EOS % 3.5 % (0.0-3.0); HEMATOCRIT 32.2 % (42.0-52.0); HEMOGLOBIN 10.5 g/dl (13.5-17.5); LYMPH # 1.6 10^3/uL (1.5-4.5); LYMPH % 6.4 % (24.0-44.0); MEAN CORPUSCULAR HEMOGLOBIN 30.5 pg (27.0-33.0); MEAN CORPUSCULAR HGB CONC 32.6 g/dl (32.0-36.5); MEAN CORPUSCULAR VOLUME 93.6 fl (80.0-96.0); MONO # 1.8 10^3/uL (0.0-0.8); MONO % 7.2 % (0.0-5.0); NEUTROPHILS # 20.7 10^3/uL (1.8-7.7); NEUTROPHILS % 81.1 % (36.0-66.0); PLATELET COUNT, AUTOMATED 373 10^3/uL (150-450); RED BLOOD COUNT 3.44 10^6/uL (4.30-6.10); WHITE BLOOD COUNT 25.5 10^3/uL (4.0-10.0)
[2018-10-25 06:18] LABS: CALCIUM LEVEL 8.7 MG/DL (8.8-10.2); CREATININE FOR GFR 8.54 MG/DL (0.70-1.30); GLOMERULAR FILTRATION RATE 6.6 (>42); MAGNESIUM LEVEL 1.8 MG/DL (1.8-2.4); POTASSIUM SERUM 4.2 MEQ/L (3.5-5.1)
[2018-10-25 08:00] VITALS: BP 146/82
[2018-10-25] MEDS: HEPARIN SOD (PORCINE) 5000 UNITS/ML VIAL SC SCH ×2 (08:17→20:36)
[2018-10-25] MEDS: PANTOPRAZOLE 40MG INJ (PROTONIX) (C9113) IV SCH ×2 (08:17→20:36)
[2018-10-25] MEDS: DIVALPROEX SPRINKLE 125 MG CAP PO SCH ×2 (08:18→20:37)
[2018-10-25] MEDS: MULTIVITAMINS/MINERALS THERAP 1 TAB PO SCH (08:18)
[2018-10-25] MEDS: ASPIRIN 81 MG ENTERIC TAB PO SCH (08:18)
[2018-10-25] MEDS: METOPROLOL SUCC *XL* 25MG TAB (TopROL *XL*) PO SCH (08:20)
--- NOTE | 2018-10-25 10:11 | REP ---
Clinical: Follow up right hydronephrosis. Technique: Axial noncontrast images from the lung bases to the pubic symphysis with coronal and sagittal re-formations. Comparison: 10/20/2018. Findings: Lung bases demonstrate new small pleural effusions and bibasilar atelectasis. The patient is status post right percutaneous nephrostomy tube and hydronephrosis has improved. The right kidney appears relatively normal by noncontrast evaluation with small suspected cyst. The distal right ureter again appears obscured and obstructed by a mass in the right ruperto pelvis measuring approximately 5.8 cm diameter and inseparable from the bladder which appears irregular and thick walled. Left kidney demonstrates moderate stable hydroureteronephrosis with a suspected obstructing mass in the distal ureter (image 101). Prostate gland is enlarged and remains relatively stable. Small fat containing inguinal hernia noted. The liver, spleen, pancreas, gallbladder, and bilateral adrenal glands are normal. The enteric system is without obstruction or acute inflammatory process. Scattered colonic and sigmoid diverticulosis noted without acute diverticulitis. No ascites. No free air. No obvious adenopathy by current noncontrast evaluation. Musculoskeletal structures demonstrate degenerative changes without focal osseous abnormality. Impression: 1. Improved appearance to the right kidney and right hydronephrosis. Stable left hydronephrosis and hydroureter. Stable presumed malignant changes within the bladder, right ruperto pelvis and distal left ureter. 2. Small bilateral pleural effusions and bibasilar atelectasis represent new findings. 3. Remainder examination demonstrates chronic change. Electronically Signed by Wellington Burnett MD 10/25/2018 10:02 A
[2018-10-25 12:00] VITALS: BP 144/82
--- NOTE | 2018-10-25 12:30 | IPNPDOC ---
Text Note Date of Service The patient was seen on 10/25/18. 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 Patient initially presented to the ER at [facility] ([facility]) because he was experiencing fevers and reported lethargy. Upon arrival at [facility] patient received imaging that revealed mass encasing the distal right ureter and lesions in the liver suspicious for metastatic disease. His lab work was also significant for renal failure with a Creatinine of >8.0. Patient was transferred over to [facility] where he was evaluated by urology. Patient was admitted to hospitalist service for further evaluation and treatment. Urology and nephrology were called on consultation. Patient was seen and examined at the bedside. Patient appears comfortable, does not appear to be in any pain. Remains nonverbal, is making incompressible sounds. Objective: Vitals (See below) General: Lying in bed, appears to be comfortable, awake / alert HEENT: NC, AT CVS: No evidence of wheezing, rales or rhonchi. Fair air entry bilaterally Abdomen: Soft without distention or tenderness Back: R nephrostomy tube with dressing in place Extremities: No edema, - Calf tenderness Assessment and plan: Leukocytosis / Fever - suspected to be 2/2 urinary tract infection - Patient was found to have fever and was experiencing lethargy at [facility] - Upon arrival to the emergency room [facility] patient was found to be febrile; while inpatient. His express low-grade temperatures - Urine analysis there as well as here reveal that there is evidence of urinary tract infection - Blood cultures 10/20: Negative at 72 hours; Urine cultures 10/20: Aerococcus urinae; Culture from R kidney 10/22: Negative - Chest x-ray and CT scan brain completed at [facility] have been negative for acute findings - c/w Cefepime (Day #3); s/p Ceftriaxone (Received 5 days) Acute renal failure - possibly 2/2 pre-renal etiology, intrarenal etiology, or post-renal etiology - Patients baseline creatinine was noted to be approximately 1.4 - Physical does not reveal any signs of fluid overload - No electrolyte abdomen is her acid base abnormalities to suggest urgent dialysis; creatinine has shown some improvement over last 24 hours - Patient has had a CT scan completed at [facility]; bilateral hydro-nephro ureter with soft tissue attenuation obstruction of the ureteral lumen seen in the mid ureter of the left suspicious for transitional cell carcinoma - US abdomen 10/20: Mild to moderate bilateral hydronephrosis. There are no prior examinations for comparison. - CT abdomen / pelvis 10/20: 1. Thickened wall of the distal esophagus. Finding may be related to reflux esophagitis however an esophageal neoplasm should be excluded clinically. 2. There is diffuse pancreatic atrophy. 3. Elmore catheter demonstrated within a glass urinary bladder demonstrates marked thickening of the bladder wall and perivesicular inflammatory changes. Findings consistent with gross cystitis however neoplasm not excluded. In addition there is a right posterior lateral mass contiguous with the right side of the bladder which contains a small amount of air in overall dimensions of 5.1 x 4.4 x 5.5 cm. This may represent neoplasm within the large bladder diverticulum. 4. Bilateral moderate hydroureteronephrosis likely secondary to the above-described bladder findings and right posterolateral bladder mass. 5. Mild prostatic hyperplasia. 6. Circumferential thickening of the rectal wall which should be correlated with digital examination. - CT abdomen / pelvis 10/25: 1. Improved appearance to the right kidney and right hydronephrosis. Stable left hydronephrosis and hydroureter. Stable presumed malignant changes within the bladder, right ruperto pelvis and distal left ureter. 2. Small bilateral pleural effusions and bibasilar atelectasis represent new findings. 3. Remainder examination demonstrates chronic change. 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 Solis - Currently patient no outpatient follow up with Oncology - Urology on consultation; Discussed with Dr. Ellsworth s/p Hypernatremia - Has received a bolus of normal saline in the emergency room - Nephrology on consultation s/p Hyperkalemia Macrocytic anemia - Acute drop in hemoglobin - possibly 2/2 dilutional etiology - No evidence of bleeding; no evidence of acute blood loss - B12 levels and Folate levels wnl - Patient's family has indicated that he has a history of anemia and has received transfusions in the past - Received consent over phone with Maddy, the patient's sister - s/p 2 units PRBC - Hg remains stable Cerebral palsy with profound mental retardation HTN; s/p Hypertensive Crisis - BP significantly improved - c/w Metoprolol DLP - c/w Atorvastatin Neurogenic bladder - s/p Elmore Catheter Anxiety / Behavioral problems - c/w Divalproex Cataracts Osteoporosis - c/w Vitamin D / Calcium supplementation GERD - c/w Protonix DVT prophylaxis - c/w Heparin Disposition: - PFS and case management working on establishing healthcare proxy with [employer] and Maddy - Patient will likely require nephrostomy tube placement on left side Family contact: - Maddy (Sister) [phone] - Joceline ([employer] [facility]) [phone] VS,Fishbone, I+O VS, Fishbone, I+O Laboratory Tests 10/24/18 14:47 10/25/18 05:31 Red Blood Count 3.44 L, Mean Corpuscular Volume 93.6, Mean Corpuscular Hemoglobin 30.5, Mean Corpuscular Hemoglobin Concent 32.6, Red Cell Distribution Width 14.9 H, Neutrophils (%) (Auto) 81.1 H, Lymphocytes (%) (Auto) 6.4 L, Monocytes (%) (Auto) 7.2 H, Eosinophils (%) (Auto) 3.5 H, Basophils (%) (Auto) 0.4, Neutrophils # (Auto) 20.7 H, Lymphocytes # (Auto) 1.6, Monocytes # (Auto) 1.8 H, Eosinophils # (Auto) 0.9 H, Basophils # (Auto) 0.1, Calcium Level 8.7 L Vital Signs Date Time Temp Pulse Resp B/P (MAP) Pulse Ox O2 Delivery O2 Flow Rate FiO2 10/25/18 08:20 92 142/82 10/25/18 08:00 98.0 22 97 10/22/18 15:02 3 10/20/18 14:13 Room Air I&O- Last 24 Hours up to 6 AM 10/25/18 06:00 Intake Total 3800 ml Output Total 5175 ml Balance -1375 ml ZOHRA MERCADO MD October 25, 2018 12:30
[2018-10-25] MEDS: CEFEPIME HCL 1 GM in D5W MINI-BAG PLUS 50 ML IV SCH (13:44)
--- NOTE | 2018-10-25 14:46 | REP ---
RIGHT NEPHROSTOMY DRAINAGE CATHETER INSERTION USING ULTRASOUND AND FLUOROSCOPIC GUIDANCE The procedure was performed under the direct supervision of Dr. Alejo. The risks and benefits of the procedure were explained and informed consent was obtained by the health care proxy. Diagnosis: Right hydronephrosis/ureteral obstruction Anesthetic: 16 ml of 1% lidocaine Contrast: 10 ml of Isovue 300 Estimated blood loss: Less than 2 ml Fluoroscopy time: 4.2 minutes Anesthesia was present throughout the examination for sedation and pain control. The patient was brought into the interventional suite and placed on the table in the prone oblique position. A time out procedure was performed. The right renal collecting system was localized using ultrasound guidance. The skin was prepped and draped in a sterile fashion. 1% lidocaine was used as a local anesthetic. Using ultrasound guidance a 21-gauge needle was inserted and advanced into the collecting system. A nephrostogram was performed demonstrating the renal pelvis and ureter. A 0.018 guidewire was inserted and advanced into the renal pelvis. The needle was removed and a 4.5 [place] dilator and sheath was inserted over the guide wire. The guidewire was removed and a 0.035 guidewire was inserted and advanced down the ureter. The sheath was removed and an 8-[place] Skater APDL catheter was inserted over the guide wire. The loop of the catheter was formed in the renal pelvis. A nephrostogram was performed and images demonstrate good catheter position. The catheter was affixed to the skin and a sterile dressing was applied. The catheter was connected to a gravity drainage bag. The patient tolerated the procedure well and there were no immediate complications. The patient is scheduled for a right nephrostomy catheter exchange in 10-12 weeks or sooner if necessary. Reviewed by MAIRA Montoya 10/25/2018 02:07 P Electronically Signed by Carroll Alejo MD 10/25/2018 02:37 P
[2018-10-25 16:00] VITALS: BP 139/82
--- NOTE | 2018-10-25 18:51 | IPN ---
DATE: 10/25/2018 SUBJECTIVE: The patient is seen and examined this morning at the bedside. His caregiver remains present. There are no overnight events reported. He continues with postobstructive diuresis from the right nephrostomy and continues on intravenous (IV) fluids. Repeat CT scan done today shows persistent left hydroureteronephrosis secondary to obstruction from malignancy. Vital signs: Temperature 97.8, pulse 81, respiratory rate 22, blood pressure 144/82, saturating 97% on room air. Intake yesterday was 3.7 liters, urine output yesterday from the right nephrostomy was 4.9 liters, urine output from the Elmore was 450 mL, net negative 1700 mL. Weight on the bed scale today is 63.5 kg. General: The patient is seen lying in bed, caregivers present at the bedside. He is awake but not alert and not oriented. He is mute and legally blind. Jugular veins are not elevated. Heart sounds are regular rate and rhythm. There is no pericardial friction rub. There is no peripheral edema. Lungs: Shows symmetric air entry. There is no wheeze or crackle. He is comfortable on room air. The abdomen is soft. He does not grimace to palpation. There is a right-sided nephrostomy tube draining clear yellow urine. There is a Elmore catheter in place with minimal urine. The lower extremities are negative for edema and show decreased muscle mass. Neurologic: There is profound mental retardation. LABORATORY DATA: White count 25.5, hemoglobin 10.5, platelets 373. Sodium 142, potassium 4.2, bicarbonate 27, BUN 87, creatinine 8.5. IMAGING: Noncontrast CT abdomen and pelvis today showed improved appearance of the right kidney and right hydronephrosis and ongoing left hydroureteronephrosis with suspected obstructing mass in the distal ureter. INPATIENT MEDICATIONS: He continues on half normal saline at 150 mL an hour. Remainder of medications are unchanged from prior. PROBLEMS: 1. Nonoliguric renal failure in the setting of bilateral hydroureteronephrosis secondary to malignancy, status post right percutaneous nephrostomy with improvement of right hydroureteronephrosis on CT scan today and with persistent left hydroureteronephrosis with malignancy obstructing the distal ureter. The patient has had postobstructive diuresis from the right nephrostomy. He continues on hypotonic fluids. He is going to require a left nephrostomy as well, and I have discussed the recent CT scan findings with the primary team. If a left nephrostomy is not placed, the patient will chronically lose function in the left kidney. 2. Postobstructive diuresis from right percutaneous nephrostomy. It is expected and he continues on appropriate hypotonic IV fluids, and no changes are being made to the fluids today. 3. High-grade urothelial carcinoma, status post transurethral resection of bladder tumor with masses obstructing his bilateral ureters, and patient presenting with bilateral hydroureteronephrosis, status post right percutaneous nephrostomy, and he will need a left percutaneous nephrostomy as well, and we will defer placement to his urologic team.
[2018-10-25 20:00] VITALS: BP 170/79
[2018-10-25] MEDS: ATORVASTATIN 20 MG TAB PO SCH (20:37)
[2018-10-26] VITALS: BP 170/88
[2018-10-26 04:00] VITALS: BP 162/87
[2018-10-26] MEDS: NS 0.45% 1,000 ML IV SCH ×3 (05:02→23:23)
[2018-10-26 05:53] LABS: BASO # 0.1 10^3/uL (0.0-0.2); BASO % 0.3 % (0.0-1.0); EOS # 0.9 10^3/uL (0.0-0.50); EOS % 3.2 % (0.0-3.0); HEMATOCRIT 32.4 % (42.0-52.0); HEMOGLOBIN 10.6 g/dl (13.5-17.5); LYMPH # 1.5 10^3/uL (1.5-4.5); LYMPH % 5.1 % (24.0-44.0); MEAN CORPUSCULAR HEMOGLOBIN 30.5 pg (27.0-33.0); MEAN CORPUSCULAR HGB CONC 32.7 g/dl (32.0-36.5); MEAN CORPUSCULAR VOLUME 93.4 fl (80.0-96.0); NEUTROPHILS # 23.7 10^3/uL (1.8-7.7); PLATELET COUNT, AUTOMATED 391 10^3/uL (150-450); RED BLOOD COUNT 3.47 10^6/uL (4.30-6.10); WHITE BLOOD COUNT 28.6 10^3/uL (4.0-10.0)
[2018-10-26 06:10] LABS: CALCIUM LEVEL 8.8 MG/DL (8.8-10.2); CREATININE FOR GFR 7.69 MG/DL (0.70-1.30); GLOMERULAR FILTRATION RATE 7.4 (>42); MAGNESIUM LEVEL 1.7 MG/DL (1.8-2.4); POTASSIUM SERUM 3.9 MEQ/L (3.5-5.1)
[2018-10-26 08:00] VITALS: BP 140/72
[2018-10-26] MEDS ORDERED: MAG SULF 1GM/100ML (MAG RUN) 1 GM in APPROPRIATE DILUENT 1 EA IV ONE (09:00)
[2018-10-26] MEDS: HEPARIN SOD (PORCINE) 5000 UNITS/ML VIAL SC SCH ×2 (09:36→21:10)
[2018-10-26] MEDS: PANTOPRAZOLE 40MG INJ (PROTONIX) (C9113) IV SCH ×2 (09:37→21:09)
[2018-10-26] MEDS: DIVALPROEX SPRINKLE 125 MG CAP PO SCH ×2 (09:38→21:09)
[2018-10-26] MEDS: METOPROLOL SUCC *XL* 25MG TAB (TopROL *XL*) PO SCH (09:38)
[2018-10-26] MEDS: MULTIVITAMINS/MINERALS THERAP 1 TAB PO SCH (09:38)
[2018-10-26] MEDS: ASPIRIN 81 MG ENTERIC TAB PO SCH (09:38)
[2018-10-26 12:00] VITALS: BP 164/86
[2018-10-26] MEDS: CEFEPIME HCL 1 GM in D5W MINI-BAG PLUS 50 ML IV SCH (13:22)
--- NOTE | 2018-10-26 13:31 | IPNPDOC ---
Text Note Date of Service The patient was seen on 10/26/18. 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 Patient initially presented to the ER at [facility] ([facility]) because he was experiencing fevers and reported lethargy. Upon arrival at [facility] patient received imaging that revealed mass encasing the distal right ureter and lesions in the liver suspicious for metastatic disease. His lab work was also significant for renal failure with a Creatinine of >8.0. Patient was transferred over to [facility] where he was evaluated by urology. Patient was admitted to hospitalist service for further evaluation and treatment. Urology and nephrology were called on consultation. Patient was seen and examined at the bedside. Objective: Vitals (See below) General: Lying in bed, appears to be comfortable, awake / alert HEENT: NC, AT CVS: No evidence of wheezing, rales or rhonchi. Fair air entry bilaterally Abdomen: Soft without distention or tenderness Back: R nephrostomy tube with dressing in place Extremities: No edema, - Calf tenderness Imaging: - US abdomen 10/20: Mild to moderate bilateral hydronephrosis. There are no prior examinations for comparison. - CT abdomen / pelvis 10/20: 1. Thickened wall of the distal esophagus. Finding may be related to reflux esophagitis however an esophageal neoplasm should be excluded clinically. 2. There is diffuse pancreatic atrophy. 3. Elmore catheter demonstrated within a glass urinary bladder demonstrates marked thickening of the bladder wall and perivesicular inflammatory changes. Findings consistent with gross cystitis however neoplasm not excluded. In addition there is a right posterior lateral mass contiguous with the right side of the bladder which contains a small amount of air in overall dimensions of 5.1 x 4.4 x 5.5 cm. This may represent neoplasm within the large bladder diverticulum. 4. Bilateral moderate hydroureteronephrosis likely secondary to the above-described bladder findings and right posterolateral bladder mass. 5. Mild prostatic hyperplasia. 6. Circumferential thickening of the rectal wall which should be correlated with digital examination. - CT abdomen / pelvis 10/25: 1. Improved appearance to the right kidney and right hydronephrosis. Stable left hydronephrosis and hydroureter. Stable presumed malignant changes within the bladder, right ruperto pelvis and distal left ureter. 2. Small bilateral pleural effusions and bibasilar atelectasis represent new findings. 3. Remainder examination demonstrates chronic change. Assessment and plan: Leukocytosis / Fever - suspected to be 2/2 urinary tract infection - Patient was found to have fever and was experiencing lethargy at [facility] - Upon arrival to the emergency room [facility] patient was found to be febrile; while inpatient. His express low-grade temperatures - Urine analysis there as well as here reveal that there is evidence of urinary tract infection - Blood cultures 10/20: Negative at 72 hours; Urine cultures 10/20: Aerococcus urinae; Culture from R kidney 10/22: Negative - Chest x-ray and CT scan brain completed at [facility] have been negative for acute findings - c/w Cefepime (Day #4); s/p Ceftriaxone (Received 5 days) Acute renal failure - possibly 2/2 pre-renal etiology, intrarenal etiology, or post-renal etiology - Patients baseline creatinine was noted to be approximately 1.4 - Physical, again does not reveal any significant for dialysis; no acute abnormalities or acid base dysfunction - No electrolyte abdomen is her acid base abnormalities to suggest urgent dialysis; creatinine has shown some improvement over last 24 hours - Patient has had a CT scan completed at [facility]; bilateral hydro-nephro ureter with soft tissue attenuation obstruction of the ureteral lumen seen in the mid ureter of the left suspicious for transitional cell carcinoma - Repeat CT imaging has shown persistence of left-sided hydronephrosis - Patient has had a Elmore catheter placed; s/p R sided nephrostomy tube placement 10/22 with IR - Nephrology and Urology on consultation - Patient will likely require a left-sided nephrostomy tube placement - tentatively scheduled for Sunday Recent diagnosis of 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 Solis - Currently patient no outpatient follow up with Oncology - Urology on consultation; Discussed with Dr. Ellsworth s/p Hypernatremia - Has received a bolus of normal saline in the emergency room - Nephrology on consultation s/p Hyperkalemia Macrocytic anemia - Acute drop in hemoglobin - possibly 2/2 dilutional etiology - No evidence of bleeding; no evidence of acute blood loss - B12 levels and Folate levels wnl - Patient's family has indicated that he has a history of anemia and has received transfusions in the past - Received consent over phone with Maddy, the patient's sister - s/p 2 units PRBC - Hg remains stable Cerebral palsy with profound mental retardation HTN; s/p Hypertensive Crisis - BP moderately controlled - c/w Metoprolol DLP - c/w Atorvastatin Neurogenic bladder - s/p Elmore Catheter Anxiety / Behavioral problems - c/w Divalproex Cataracts Osteoporosis - c/w Vitamin D / Calcium supplementation GERD - c/w Protonix DVT prophylaxis - c/w Heparin Disposition: - PFS and case management working on establishing healthcare proxy with [employer] and Maddy - Tentatively scheduled for nephrostomy tube placement on left, likely Sunday Family contact: - Maddy (Sister) [phone] - Joceline ([employer] [facility]) [phone] VS,Johan, I+O VS, Johan, I+O Laboratory Tests 10/26/18 05:31 Red Blood Count 3.47 L, Mean Corpuscular Volume 93.4, Mean Corpuscular Hemog lobin 30.5, Mean Corpuscular Hemoglobin Concent 32.7, Red Cell Distribution Width 14.8 H, Neutrophils (%) (Auto) 83.0 H, Lymphocytes (%) (Auto) 5.1 L, Monocytes (%) (Auto) 7.0 H, Eosinophils (%) (Auto) 3.2 H, Basophils (%) (Auto) 0.3, Neutrophils # (Auto) 23.7 H, Lymphocytes # (Auto) 1.5, Monocytes # (Auto) 2.0 H, Eosinophils # (Auto) 0.9 H, Basophils # (Auto) 0.1, Calcium Level 8.8 Vital Signs Date Time Temp Pulse Resp B/P (MAP) Pulse Ox O2 Delivery O2 Flow Rate FiO2 10/26/18 12:00 98.2 87 20 164/86 (112) 100 10/22/18 15:02 3 10/20/18 14:13 Room Air I&O- Last 24 Hours up to 6 AM 10/26/18 06:00 Intake Total 2670 ml Output Total 4800 ml Balance -2130 ml ZOHRA MERCADO MD October 26, 2018 13:31
--- NOTE | 2018-10-26 15:17 | IPNPDOC ---
Text Note Date of Service The patient was seen on 10/26/18. NOTE Nephrology Service: Subjective: Patient seen and examined at bedside. Caregiver is present. No acute overnight events reported. Remains afebrile and hemodynamically stable. Continues with postobstructive diuresis from R nephrostomy tube and continues on NS IVF at 150 mLs/hr. Patient nonverbal. Caregiver reports he does drink by mouth and that he is going for L nephrostomy tube placement on Sunday. Objective: Vitals: T 99 P 96 BP 140/72 Pulse Ox: 95% on room air Intake: 2820 mL Output: 4900 mL Balance: (-)2080 mL Urine Output: 0.46 mL/kg/hr R Nephrostomy Tube Drainage: 4200 mL Urine Total: 700 mL BMs: 2 Wt yesterday: 63.53 kg Wt today: 62.2 kg General: Asleep in bed. Not awake, alert, nor oriented. Resting comfortably in bed in NAD. Elderly male lying in bed. Pleasant and cooperative. HEENT: Head: normocephalic, atraumatic. Deaf, mute, and legally blind. Neck: Supple. No JVD. Respiratory: Clear to auscultation bilaterally with no wheezes, rales, or rhonchi. Cardiovascular: Normal S1S2, regular rate and rhythm, with no murmurs, rubs or gallops. Abdomen: Soft, no grimace to palpation of abdomen. Normoactive bowel sounds. Extremities: No clubbing, cyanosis, edema. Musculoskeletal: unable to assess but has decreased muscle mass in lower extre mities. : R sided Nephrostomy tube draining clear yellow urine; Neurological: Profound mental retardation. Laboratory data: CBC: WBC 28.6, Hgb 10.6, Platelets 391 BMP: Na 144, K 3.9, BUN 76, Cr 7.69, CO2 24, glucose 99, Ca 8.8, Mg 1.7 Microbiology: 10/20 Urine Cx: Grew Aerococcus Urinae 50,000. 10/20 Blood Cx: No growth after 5 days. 10/21: Stool occult blood negative. Anaerobic Cx R Kidney Urine: No growth anaerobically. Gram stain and Body Fluid Cx R Kidney Urine: No cells seen. No organisms seen. No growth aerobically. Most recent imaging: CT Abd & Pelvis w/o Contrast: improved appearance to the R kidney and R hydronephrosis. Stable L hydronephrosis and hydroureter. Stable presumed marianna gnant changes within the bladder, R ruperto-pelvis and distal L ureter. Small bilateral pleural effusions and bibasilar atelectasis represent new findings. Remainder exam demonstrates chronic change. Current Inpatient Medications: Sodium Chloride 1000 mL @ 150 mLs/hr. Cefepime HCL 1 gm/dextrose 50 mL @ 100 mLs/hr q24h IV Atorvastatin calcium 40 mg PO QHS Metoprolol succinate 25 mg PO daily Aspirin 81 mg PO daily Medication Changes: Sodium Chloride 1000 mL rate decreased to @ 100 mLs/hr. Assessment/Plan: 1. Nonoliguric renal failure in the setting of bilateral hydroureteronephrosis secondary to malignancy, s/p R percutaneous nephrostomy tube with persistent L hydroureteronephrosis with malignancy obstructing the distal ureter: Has postobstructive diuresis from R nephrostomy. Good nephrostomy tube output of 4200 mL in R nephrostomy tube. Urine total was 700 mL. Changed IVF rate from 150 to 100 mLs/hr for NS. Requires a L nephrostomy tube that Caregiver states is to be placed this upcoming Sunday. Will continue to monitor I/Os, electrolyte status, and for improvement in postobstructive diuresis. If L nephrostomy tube not placed, patient will chronically lose function in L kidney. 2. Postobstructive diuresis from R percutaneous nephrostomy: Continues on NaCl IVF with a decrease in the rate today from 150 mLs/hr to 100 mLs/hr. Will see if nephrostomy output decreases since rate of IVF have decreased as well. 3. High-grade urothelial carcinoma s/p transurethral resection of bladder tumor with masses obstructing his bilateral ureters, in addition to B/L hydroureteronephrosis s/p R percutaneous nephrostomy: Needs L nephrostomy placed. Will defer placement to his Urology team. My preceptor for this patient encounter was Dr. Lucien Davison, and was physically present in the building during the encounter and was fully available. As needed, all aspects of the patient interview, examination, medical decision making process, and medical care plan development were reviewed and approved by the preceptor. Preceptor is aware and concurs with the plan as stated in the body of this note and will attest to such by his/her cosignature. VS,Fishbone, I+O VS, Fishbone, I+O Laboratory Tests 10/26/18 05:31 Red Blood Count 3.47 L, Mean Corpuscular Volume 93.4, Mean Corpuscular Hemoglobin 30.5, Mean Corpuscular Hemoglobin Concent 32.7, Red Cell Distribution Width 14.8 H, Neutrophils (%) (Auto) 83.0 H, Lymphocytes (%) (Auto) 5.1 L, Monocytes (%) (Auto) 7.0 H, Eosinophils (%) (Auto) 3.2 H, Basophils (%) (Auto) 0.3, Neutrophils # (Auto) 23.7 H, Lymphocytes # (Auto) 1.5, Monocytes # (Auto) 2.0 H, Eosinophils # (Auto) 0.9 H, Basophils # (Auto) 0.1, Calcium Level 8.8 Vital Signs Date Time Temp Pulse Resp B/P (MAP) Pulse Ox O2 Delivery O2 Flow Rate FiO2 10/26/18 12:00 98.2 87 20 164/86 (112) 100 10/22/18 15:02 3 10/20/18 14:13 Room Air I&O- Last 24 Hours up to 6 AM 10/26/18 06:00 Intake Total 2670 ml Output Total 4800 ml Balance -2130 ml Attending Note Attending Note A: Acute non oliguric renal failure Bilat Hydroureteronephrosis Urothelial cancer Post obstructive diuresis from Rt PCN P: Decrease IVF to 100 ml/hr DC Elmore if no significant UOP Lt sided PCN on sunday. BRANDON DOTSON DO October 26, 2018 14:52 LUCIEN DAVISON MD October 29, 2018 12:29
[2018-10-26 16:00] VITALS: BP 144/72
[2018-10-26 20:00] VITALS: BP 154/81
[2018-10-26] MEDS: ATORVASTATIN 20 MG TAB PO SCH (21:09)
[2018-10-27] VITALS (7 sets, daily range): BP systolic 137–153; BP diastolic 64–88
[2018-10-27 07:13] LABS: HEMATOCRIT 33.4 % (42.0-52.0); HEMOGLOBIN 10.8 g/dl (13.5-17.5); MEAN CORPUSCULAR HEMOGLOBIN 30.8 pg (27.0-33.0); MEAN CORPUSCULAR HGB CONC 32.3 g/dl (32.0-36.5); MEAN CORPUSCULAR VOLUME 95.2 fl (80.0-96.0); PLATELET COUNT, AUTOMATED 409 10^3/uL (150-450); RED BLOOD COUNT 3.51 10^6/uL (4.30-6.10); WHITE BLOOD COUNT 29.4 10^3/uL (4.0-10.0)
[2018-10-27 07:30] LABS: CREATININE FOR GFR 7.5 MG/DL (0.70-1.30); GLOMERULAR FILTRATION RATE 7.6 (>42); POTASSIUM SERUM 4.1 MEQ/L (3.5-5.1)
[2018-10-27 07:31] LABS: CALCIUM LEVEL 8.7 MG/DL (8.8-10.2); MAGNESIUM LEVEL 2.2 MG/DL (1.8-2.4)
[2018-10-27 07:55] LABS: EOSINOPHILS 5 % (0-5); LYMPHOCYTES 8 % (16-52); MONOCYTES 11 % (0-8); MYELOCYTES 1 % (0-0); NEUTROPHILS 74 % (35-75); PLATELET ESTIMATE NORMAL (NORMAL)
[2018-10-27] MEDS: NS 0.45% 1,000 ML IV SCH ×2 (09:02→17:48)
[2018-10-27] MEDS: PANTOPRAZOLE 40MG INJ (PROTONIX) (C9113) IV SCH ×2 (09:16→20:47)
[2018-10-27] MEDS: HEPARIN SOD (PORCINE) 5000 UNITS/ML VIAL SC SCH ×2 (09:17→20:48)
[2018-10-27] MEDS: DIVALPROEX SPRINKLE 125 MG CAP PO SCH ×2 (09:17→20:48)
[2018-10-27] MEDS: METOPROLOL SUCC *XL* 25MG TAB (TopROL *XL*) PO SCH (09:18)
[2018-10-27] MEDS: ASPIRIN 81 MG ENTERIC TAB PO SCH (09:18)
[2018-10-27] MEDS: MULTIVITAMINS/MINERALS THERAP 1 TAB PO SCH (09:18)
--- NOTE | 2018-10-27 10:54 | IPNPDOC ---
Text Note Date of Service The patient was seen on 10/27/18. 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 Patient initially presented to the ER at [facility] ([facility]) because he was experiencing fevers and reported lethargy. Upon arrival at [facility] patient received imaging that revealed mass encasing the distal right ureter and lesions in the liver suspicious for metastatic disease. His lab work was also significant for renal failure with a Creatinine of >8.0. Patient was transferred over to [facility] where he was evaluated by urology. Patient was admitted to hospitalist service for further evaluation and treatment. Urology and nephrology were called on consultation. Patient was seen and examined at the bedside. Patient remains nonverbal, appears comfortable making incompressible sounds. Objective: Vitals (See below) General: Lying in bed, appears to be comfortable, responds to pain, awake / alert, makes incomprehensible sounds HEENT: normocephalic, atraumatic CVS: There entry is fair bilaterally, without rhonchi / rales / wheezing Abdomen: Soft, ND, NT Back: R nephrostomy tube with dressing in place Extremities: No edema, - Calf tenderness Imaging: - US abdomen 10/20: Mild to moderate bilateral hydronephrosis. There are no prior examinations for comparison. - CT abdomen / pelvis 10/20: 1. Thickened wall of the distal esophagus. Finding may be related to reflux esophagitis however an esophageal neoplasm should be excluded clinically. 2. There is diffuse pancreatic atrophy. 3. Elmore catheter demonstrated within a glass urinary bladder demonstrates marked thickening of the bladder wall and perivesicular inflammatory changes. Findings consistent with gross cystitis however neoplasm not excluded. In addition there is a right posterior lateral mass contiguous with the right side of the bladder which contains a small amount of air in overall dimensions of 5.1 x 4.4 x 5.5 cm. This may represent neoplasm within the large bladder diverticulum. 4. Bilateral moderate hydroureteronephrosis likely secondary to the above-described bladder findings and right posterolateral bladder mass. 5. Mild prostatic hyperplasia. 6. Circumferential thickening of the rectal wall which should be correlated with digital examination. - CT abdomen / pelvis 10/25: 1. Improved appearance to the right kidney and right hydronephrosis. Stable left hydronephrosis and hydroureter. Stable presumed malignant changes within the bladder, right ruperto pelvis and distal left ureter. 2. Small bilateral pleural effusions and bibasilar atelectasis represent new findings. 3. Remainder examination demonstrates chronic change. Assessment and plan: Leukocytosis / Fever - suspected to be 2/2 complicated urinary tract infection - Patient was found to have fever and was experiencing lethargy at [facility] - Upon arrival to the emergency room [facility] patient was found to be febrile; while inpatient he experienced low-grade temperatures - Risk factors: Urinary retention initially; and now with indwelling nephrostomy tubes - Urine analysis there as well as here showed evidence of UTI - Blood cultures 10/20: Negative at 5 days; Urine cultures 10/20: Aerococcus urinae; Culture from R kidney 10/22: Negative - Chest x-ray and CT scan brain completed at [facility] have been negative for acute findings - c/w Cefepime (Day #5); s/p Ceftriaxone (Received 5 days) Acute non-oliguric renal failure - possibly 2/2 intrarenal etiology - possibly 2/2 ATN, possibly 2/2 post-renal etiology - 2/2 bilateral hydroureteronephrosis 2/2 malignancy - History of CKD3 - Patients baseline creatinine was noted to be approximately 1.4 - Physical, again does not reveal any significant for dialysis; no acute abnormalities or acid base dysfunction - No electrolyte abdomen is her acid base abnormalities to suggest urgent dialysis; creatinine has shown some improvement over last 24 hours - Patient has had a CT scan completed at [facility]; bilateral hydro-nephro ureter with soft tissue attenuation obstruction of the ureteral lumen seen in the mid ureter of the left suspicious for transitional cell carcinoma - Repeat CT imaging has shown persistence of left-sided hydronephrosis - Patient has had a Elmore catheter placed; s/p R sided nephrostomy tube placement 10/22 with IR - Nephrology and Urology on consultation - Patient will likely require a left-sided nephrostomy tube placement - tentatively scheduled for Sunday Recent diagnosis of 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 Solis - Currently patient no outpatient follow up with Oncology - Urology on consultation; Discussed with Dr. Ellsworth s/p Hypernatremia - Has received a bolus of normal saline in the emergency room - Nephrology on consultation s/p Hyperkalemia Macrocytic anemia - Acute drop in hemoglobin - possibly 2/2 dilutional etiology - No evidence of bleeding; no evidence of acute blood loss - B12 levels and Folate levels wnl - Patient's family has indicated that he has a history of anemia and has received transfusions in the past - Received consent over phone with Maddy, the patient's sister - s/p 2 units PRBC - Hg remains stable Cerebral palsy with profound mental retardation HTN; s/p Hypertensive Crisis - BP moderately controlled - c/w Metoprolol DLP - c/w Atorvastatin Neurogenic bladder - s/p Elmore Catheter Anxiety / Behavioral problems - c/w Divalproex Cataracts Osteoporosis - c/w Vitamin D / Calcium supplementation GERD - c/w Protonix DVT prophylaxis - c/w Heparin Disposition: - PFS and case management working on establishing healthcare proxy [employer] and Maddy - Tentatively scheduled for nephrostomy tube placement on left, likely Sunday Prognosis: - Poor / Guarded Family contact: - Maddy (Sister) [phone] - Joceline ([employer] [facility]) [phone] VS,Johan, I+O VS, Johan, I+O Laboratory Tests 10/27/18 06:26 Red Blood Count 3.51 L, Mean Corpuscular Volume 95.2, Mean Corpuscular Hemoglobin 30.8, Mean Corpuscular Hemoglobin Concent 32.3, Red Cell Distribution Width 14.9 H, Monocytes # (Auto) , Calcium Level 8.7 L Vital Signs Date Time Temp Pulse Resp B/P (MAP) Pulse Ox O2 Delivery O2 Flow Rate FiO2 10/27/18 09:18 89 153/72 10/27/18 08:00 98.6 20 96 10/22/18 15:02 3 I&O- Last 24 Hours up to 6 AM 10/27/18 06:00 Intake Total 3950 ml Output Total 4730 ml Balance -780 ml ZOHRA MERCADO MD October 27, 2018 10:54
[2018-10-27] MEDS: CEFEPIME HCL 1 GM in D5W MINI-BAG PLUS 50 ML IV SCH (13:14)
[2018-10-27] MEDS: ATORVASTATIN 20 MG TAB PO SCH (20:48)
[2018-10-28] MEDS: NS 0.45% 1,000 ML IV SCH ×2 (01:42→10:11)
--- NOTE | 2018-10-28 03:07 | IPN ---
DATE OF SERVICE: 10/27/2018 SUBJECTIVE: The patient was seen and examined at the bedside today morning. He is afebrile, hemodynamically stable. He is nonverbal. He continues to have postobstructive diuresis from the right-sided percutaneous nephrostomy. Renal function is very gradually improving. Creatinine is down to 7.5 today. The patient is unable to provide any review of systems. OBJECTIVE: VITAL SIGNS: Temperature is 98.8 degrees Fahrenheit, blood pressure 137/88, pulse is 91, respiratory rate of 22, saturating 98% on room air. INTAKE AND OUTPUT: Urine output recorded is 4.7 liters from the nephrostomy yesterday and 2 liters so far today since overnight. Weight in the bed scale is 62.8 kg. PHYSICAL EXAMINATION: GENERAL: The patient is awake, nonverbal, laying in bed. No apparent distress. HEAD AND NECK EXAM: Mucous membranes are moist. Neck is supple. There is no jugular venous distention (JVD). He is deaf, mute and legally blind. CARDIOVASCULAR: S1, S2, regular rate and no edema of the bilateral lower extremities. RESPIRATORY: Chest is clear to auscultation bilaterally. Bilateral equal air entry. No rales or rhonchi. ABDOMEN: Soft. Positive bowel sounds. Nontender. MUSCULOSKELETAL: No clubbing or cyanosis. Pulses are 2+. CENTRAL NERVOUS SYSTEM (PER DIEM NURSE): The patient does not follow commands. He is awake and nonverbal. He has history of mental retardation. LABORATORY REVIEW: Complete blood count (CBC) showed a white blood cell (WBC) of 29.4, hemoglobin is 10.8, platelets of 409. Basic metabolic panel (BMP) showed sodium 143, potassium 4.1, chloride 110, bicarbonate 21, BUN 81, creatinine is 7.5, calcium 8.7, magnesium is 2.2. CURRENT INPATIENT MEDICATIONS: The patient's medications were all reviewed by me. I have increased the intravenous (IV) fluid rate again to 125 mL an hour because of persistent right-sided postobstructive diuresis. No other change in the medications today as compared with yesterday. ASSESSMENT/PLAN: 1. Acute nonoliguric renal failure. The patient has bilateral hydroureteronephrosis. He already has a right-sided percutaneous nephrostomy. He is pending nephrostomy tube placement at the left side which will be done after the holiday on Monday, October 29, 2018. 2. Postobstructive diuresis from right-sided percutaneous nephrostomy. The patient is still having more than 4 liters of urine output from the right side. I have increased the intravenous (IV) fluid rate to 125 mL an hour. 3. High grade urothelial cancer status post transurethral resection of bladder tumor. The patient has very minimal output from the Elmore catheter; hardly less than 20 mL in 24-hours. I am going to have the Elmore catheter removed and start the patient on the bladder scans every 12 hourly. 4. Persistent leukocytosis, etiology is unknown. The patient is empirically on IV cefepime. Duration of antibiotics as per primary team.
[2018-10-28 04:00] VITALS: BP 136/68
[2018-10-28 08:00] VITALS: BP 169/79
[2018-10-28] MEDS: METOPROLOL SUCC *XL* 25MG TAB (TopROL *XL*) PO SCH (08:41)
[2018-10-28] MEDS: ASPIRIN 81 MG ENTERIC TAB PO SCH (08:41)
[2018-10-28] MEDS: DIVALPROEX SPRINKLE 125 MG CAP PO SCH ×2 (08:41→20:49)
[2018-10-28] MEDS: PANTOPRAZOLE 40MG INJ (PROTONIX) (C9113) IV SCH ×2 (08:41→20:50)
[2018-10-28] MEDS: MULTIVITAMINS/MINERALS THERAP 1 TAB PO SCH (08:41)
[2018-10-28] MEDS: HEPARIN SOD (PORCINE) 5000 UNITS/ML VIAL SC SCH ×2 (08:41→20:50)
[2018-10-28 09:23] LABS: HEMATOCRIT 31.7 % (42.0-52.0); HEMOGLOBIN 10.1 g/dl (13.5-17.5); MEAN CORPUSCULAR HEMOGLOBIN 29.8 pg (27.0-33.0); MEAN CORPUSCULAR HGB CONC 31.9 g/dl (32.0-36.5); MEAN CORPUSCULAR VOLUME 93.5 fl (80.0-96.0); PLATELET COUNT, AUTOMATED 396 10^3/uL (150-450); RED BLOOD COUNT 3.39 10^6/uL (4.30-6.10)
[2018-10-28 09:45] LABS: CALCIUM LEVEL 8.9 MG/DL (8.8-10.2); CREATININE FOR GFR 6.35 MG/DL (0.70-1.30); GLOMERULAR FILTRATION RATE 9.2 (>42); POTASSIUM SERUM 4.3 MEQ/L (3.5-5.1)
[2018-10-28 11:12] LABS: MAGNESIUM LEVEL 1.6 MG/DL (1.8-2.4)
--- NOTE | 2018-10-28 11:53 | IPNPDOC ---
Text Note Date of Service The patient was seen on 10/28/18. 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 Patient initially presented to the ER at [facility] ([facility]) because he was experiencing fevers and reported lethargy. Upon arrival at [facility] patient received imaging that revealed mass encasing the distal right ureter and lesions in the liver suspicious for metastatic disease. His lab work was also significant for renal failure with a Creatinine of >8.0. Patient was transferred over to [facility] where he was evaluated by urology. Patient was admitted to hospitalist service for further evaluation and treatment. Urology and nephrology were called on consultation. Patient was seen and examined at the bedside. Patient again appears calm but remains nonverbal and makes incomprehensible sounds. Objective: Vitals (See below) General: Comfortable appearing while lying in bed, awake / alert, makes incomprehensible sounds HEENT: normocephalic, atraumatic CVS: Fair b/l, no wheezing / rhonchi / rales Abdomen: Soft, non-distended, non-tender Back: R nephrostomy tube with dressing in place Extremities: No LE pitting edema, - Calf tenderness Imaging: - US abdomen 10/20: Mild to moderate bilateral hydronephrosis. There are no prior examinations for comparison. - CT abdomen / pelvis 10/20: 1. Thickened wall of the distal esophagus. Finding may be related to reflux esophagitis however an esophageal neoplasm should be excluded clinically. 2. There is diffuse pancreatic atrophy. 3. Elmore catheter demonstrated within a glass urinary bladder demonstrates marked thickening of the bladder wall and perivesicular inflammatory changes. Findings consistent w ith gross cystitis however neoplasm not excluded. In addition there is a right posterior lateral mass contiguous with the right side of the bladder which contains a small amount of air in overall dimensions of 5.1 x 4.4 x 5.5 cm. This may represent neoplasm within the large bladder diverticulum. 4. Bilateral moderate hydroureteronephrosis likely secondary to the above-described bladder findings and right posterolateral bladder mass. 5. Mild prostatic hyperplasia. 6. Circumferential thickening of the rectal wall which should be correlated with digital examination. - CT abdomen / pelvis 10/25: 1. Improved appearance to the right kidney and right hydronephrosis. Stable left hydronephrosis and hydroureter. Stable presumed malignant changes within the bladder, right ruperto pelvis and distal left ureter. 2. Small bilateral pleural effusions and bibasilar atelectasis represent new findings. 3. Remainder examination demonstrates chronic change. Assessment and plan: Leukocytosis / Fever - suspected to be 2/2 complicated urinary tract infection; however also possibly 2/2 de-marginalization from acute renal failure - Patient was found to have fever and was experiencing lethargy at [facility] - Upon arrival to the emergency room [facility] patient was found to be febrile; while inpatient he experienced low-grade temperatures - Risk factors: Urinary retention initially; and now with indwelling nephrostomy tubes - Urine analysis there as well as here showed evidence of UTI - Blood cultures 10/20: Negative at 5 days; Urine cultures 10/20: Aerococcus urinae; Culture from R kidney 10/22: Negative - Chest x-ray and CT scan brain completed at [facility] have been negative for acute findings - c/w Cefepime (Day #6); s/p Ceftriaxone (Received 5 days) Acute non-oliguric renal failure - possibly 2/2 intrarenal etiology - possibly 2/2 ATN, possibly 2/2 post-renal etiology - 2/2 bilateral hydroureteronephrosis 2/2 malignancy - History of CKD3 - Patients baseline creatinine was noted to be approximately 1.4 - Physical, again does not reveal any significant for dialysis; no acute abnormalities or acid base dysfunction - No electrolyte abdomen is her acid base abnormalities to suggest urgent dialysis; creatinine has shown some improvement over last 24 hours - Patient has had a CT scan completed at [facility]; bilateral hydro-nephro ureter with soft tissue attenuation obstruction of the ureteral lumen seen in the mid ureter of the left suspicious for transitional cell carcinoma - Repeat CT imaging has shown persistence of left-sided hydronephrosis - Patient has had a Elmore catheter placed; s/p R sided nephrostomy tube placement 10/22 with IR - Nephrology and Urology on consultation - Patient will likely require a left-sided nephrostomy tube placement - tentatively scheduled for Sunday - Order for IR nephrostomy tube has been placed and patient will be kept NPO post-midnight Electrolyte abnormalities; hypomagnesemia - will supplement magnesium Recent diagnosis of 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 Solis - Currently patient no outpatient follow up with Oncology - Urology on consultation; Discussed with Dr. Ellsworth s/p Hypernatremia - Has received a bolus of normal saline in the emergency room - Nephrology on consultation s/p Hyperkalemia Macrocytic anemia - Acute drop in hemoglobin - possibly 2/2 dilutional etiology - No evidence of bleeding; no evidence of acute blood loss - B12 levels and Folate levels wnl - Patient's family has indicated that he has a history of anemia and has received transfusions in the past - Received consent over phone with Maddy, the patient's sister - s/p 2 units PRBC - Hg remains stable Cerebral palsy with profound mental retardation HTN; s/p Hypertensive Crisis - BP moderately controlled - c/w Metoprolol DLP - c/w Atorvastatin Neurogenic bladder - s/p Elmore Catheter Anxiety / Behavioral problems - c/w Divalproex Cataracts Osteoporosis - c/w Vitamin D / Calcium supplementation GERD - c/w Protonix DVT prophylaxis - c/w Heparin Disposition: - PFS and case management working on establishing healthcare proxy with [employer] and Maddy - Tentatively scheduled for nephrostomy tube placement on left, likely Sunday - Will keep NPO post-midnight Prognosis: - Poor / Guarded Family contact: - Maddy (Sister) [phone] - Joceline ([employer] [facility] [facility]) [phone] VS,Johan, I+O VSJohan, I+O Laboratory Tests 10/28/18 09:10 Red Blood Count 3.39 L, Mean Corpuscular Volume 93.5, Mean Corpuscular Hemoglobin 29.8, Mean Corpuscular Hemoglobin Concent 31.9 L, Red Cell Distribution Width 15.0 H, Calcium Level 8.9 Vital Signs Date Time Temp Pulse Resp B/P (MAP) Pulse Ox O2 Delivery O2 Flow Rate FiO2 10/28/18 08:41 169/80 10/28/18 08:00 97.8 92 20 93 10/22/18 15:02 3 I&O- Last 24 Hours up to 6 AM 10/28/18 06:00 Intake Total 1440 ml Output Total 3100 ml Balance -1660 ml ZOHRA MERCADO MD October 28, 2018 11:53
[2018-10-28 12:00] VITALS: BP 148/83
[2018-10-28] MEDS: MAG SULF 1GM/100ML (MAG RUN) 1 GM in APPROPRIATE DILUENT 1 EA IV SCH ×2 (12:01→13:00)
[2018-10-28] MEDS: CEFEPIME HCL 1 GM in D5W MINI-BAG PLUS 50 ML IV SCH (13:16)
[2018-10-28 16:00] VITALS: BP 132/68
--- NOTE | 2018-10-28 16:41 | REP ---
Clinical: Shortness of breath . Comparison: None . Findings: The mediastinum and cardiac silhouette are stable and within normal limits for portable technique. Very subtle atelectasis at the right lung base and small pleural effusion cannot be excluded. Impression: Possible right basilar atelectasis and small pleural effusion. Electronically Signed by Wellington Burnett MD 10/28/2018 04:32 P
[2018-10-28 17:02] LABS: HEMATOCRIT 32.2 % (42.0-52.0); HEMOGLOBIN 10.3 g/dl (13.5-17.5); MEAN CORPUSCULAR HEMOGLOBIN 30.5 pg (27.0-33.0); MEAN CORPUSCULAR VOLUME 95.3 fl (80.0-96.0); PLATELET COUNT, AUTOMATED 392 10^3/uL (150-450); RED BLOOD COUNT 3.38 10^6/uL (4.30-6.10); WHITE BLOOD COUNT 28.8 10^3/uL (4.0-10.0)
[2018-10-28] MEDS ORDERED: SLF 3 ML SYR IV PRN (17:15)
[2018-10-28 17:27] LABS: CALCIUM LEVEL 8.6 MG/DL (8.8-10.2); CREATININE FOR GFR 5.87 MG/DL (0.70-1.30); GLOMERULAR FILTRATION RATE 10.1 (>42); MAGNESIUM LEVEL 2.1 MG/DL (1.8-2.4); POTASSIUM SERUM 4.9 MEQ/L (3.5-5.1)
[2018-10-28 19:25] LABS: ATYPICAL LYMPH 1 % (0-5); EOSINOPHILS 5 % (0-5); LYMPHOCYTES 4 % (16-52); MONOCYTES 12 % (0-8); NEUTROPHILS 78 % (35-75); PLATELET ESTIMATE NORMAL (NORMAL); TOXIC VACUOLATION 1+
[2018-10-28 20:00] VITALS: BP 138/74
[2018-10-28] MEDS: ATORVASTATIN 20 MG TAB PO SCH (20:49)
[2018-10-28] MEDS: SLF 3 ML SYR IV SCH (21:03)
[2018-10-28 23:59] VITALS: BP 134/71
[2018-10-29 04:00] VITALS: BP 130/78
--- NOTE | 2018-10-29 04:41 | IPN ---
DATE: 10/28/2018 SUBJECTIVE: The patient was seen and examined at the bedside today morning. The patient is nonverbal. He is unable to provide any review of systems. His renal function is gradually improving, creatinine is down to 6.3. His postobstructive diuresis is also getting better now. He is still pending left-sided percutaneous nephrostomy which will be done tomorrow. The right-sided nephrostomy tube is draining well. OBJECTIVE: VITAL SIGNS: Temperature is 98.1 degrees Fahrenheit, blood pressure (BP) 148/83, pulse is 89, respiratory rate of 19, saturating 98% on room air. INTAKE AND OUTPUT: Output from the right-sided nephrostomy is 3.3 liters yesterday and 1.7 liters of urine so far today since overnight. Weight in the bed scale is 62.9 kg. PHYSICAL EXAMINATION: GENERAL: The patient is awake. He is blind, deaf and mute. He cannot follow any commands. HEAD AND NECK EXAM: Mucous membranes are moist. Neck is supple. There is no jugular venous distention (JVD). CARDIOVASCULAR SYSTEM: S1, S2, regular rate. No edema of the bilateral lower extremities. RESPIRATORY: Chest is clear to auscultation bilaterally. Bilateral equal air entry. No rales or rhonchi. ABDOMEN: Soft. Positive bowel sounds. Nontender. MUSCULOSKELETAL: No clubbing or cyanosis. Pulses are 2+. CENTRAL NERVOUS SYSTEM (COUNTER HELP): The patient does not follow commands but he is otherwise awake and moves upper extremities. LABORATORY REVIEW: Complete blood count (CBC) showed a white blood cell (WBC) of 29, hemoglobin 10.1, platelets are 396. Basic metabolic panel (BMP) today morning showed sodium 144, potassium 4.3, chloride 112, bicarbonate 20, BUN 76, creatinine is 6.3, calcium 8.9, magnesium 1.6. IMAGING STUDIES: A chest x-ray was done today morning which showed possible right basalar atelectasis and a small pleural effusion. CURRENT INPATIENT MEDICATIONS: The patient's medications were all reviewed by me. I have decreased the intravenous (IV) fluid rate to 100 mL an hour now. No other change in the medications today as compared with yesterday. ASSESSMENT/PLAN: 1. Acute nonoliguric renal failure. It was secondary to bilateral hydroureteronephrosis. The patient is status post right-sided percutaneous nephrostomy. He is having postobstructive diuresis. Renal function is gradually improving. Left-sided nephrostomy tube will be placed tomorrow. 2. Post obstructive diuresis from right-sided percutaneous nephrostomy. The patient's IV fluid rate has been decreased to 100 mL an hour and I will gradually stop the IV fluids once his diuresis improves. 3. High-grade urothelial cancer status post transurethral resection of bladder tumor. The patient has obstruction of the left-sided ureter as well. He will get left-sided nephrostomy tube placement tomorrow morning. The rest of the management is as per urology service.
[2018-10-29 05:23] LABS: HEMATOCRIT 35.1 % (42.0-52.0); HEMOGLOBIN 11.3 g/dl (13.5-17.5); MEAN CORPUSCULAR HEMOGLOBIN 30.2 pg (27.0-33.0); MEAN CORPUSCULAR HGB CONC 32.2 g/dl (32.0-36.5); MEAN CORPUSCULAR VOLUME 93.9 fl (80.0-96.0); PLATELET COUNT, AUTOMATED 425 10^3/uL (150-450); RED BLOOD COUNT 3.74 10^6/uL (4.30-6.10)
[2018-10-29 05:42] LABS: CALCIUM LEVEL 8.8 MG/DL (8.8-10.2); CREATININE FOR GFR 5.68 MG/DL (0.70-1.30); GLOMERULAR FILTRATION RATE 10.5 (>42); POTASSIUM SERUM 4.8 MEQ/L (3.5-5.1)
[2018-10-29 06:02] LABS: WHITE BLOOD COUNT 34.2 10^3/uL (4.0-10.0)
[2018-10-29 06:06] LABS: EOSINOPHILS 2 % (0-5); LYMPHOCYTES 5 % (16-52); METAMYELOCYTES 2 % (0-0); MONOCYTES 5 % (0-8); NEUTROPHILS 83 % (35-75)
[2018-10-29 06:07] LABS: PLATELET ESTIMATE INCREASED (NORMAL)
[2018-10-29] MEDS: SLF 3 ML SYR IV SCH ×3 (06:37→21:54)
[2018-10-29] MEDS: HEPARIN SOD (PORCINE) 5000 UNITS/ML VIAL SC SCH ×2 (06:52→21:54)
[2018-10-29 08:00] VITALS: BP 149/73
[2018-10-29] MEDS: D5W 1,000 ML IV SCH (09:53)
[2018-10-29 12:00] VITALS: BP 137/81
--- NOTE | 2018-10-29 12:43 | IPN ---
DATE OF SERVICE: 10/29/2018 SUBJECTIVE: Patient was seen and examined at the bedside today, morning. Patient's intravenous (IV) fluid was stopped yesterday and today his sodium level has gone up to 146. There is slight improvement in the renal function. Creatinine is down to 5.6. He continues to have good urine output from the right-sided nephrostomy. He is going to have left-sided percutaneous nephrostomy placed today. Patient is unable to provide any review of systems. He is nonverbal. OBJECTIVE: Vital signs: Temperature is 98.1 degrees Fahrenheit. Blood pressure 149/73, pulse is 103, respiratory rate of 18, saturating 97% on room air. Intake and output: Urine output recorded as 2.6 liters from the right-sided nephrostomy yesterday, 458 mL so far today since overnight. Weight in the bed scale is 60.5 kg. PHYSICAL EXAMINATION: General: Patient is awake, nonverbal, laying in bed, in no apparent distress. Head and neck exam: Mucous membranes are moist. Neck is supple. There is no jugular venous distention (JVD). Cardiovascular: S1, S2, regular rate. No edema of the bilateral lower extremities. Respiratory: Chest is clear to auscultation bilaterally. Bilateral equal air entry. No rales or rhonchi. Abdomen: Soft. Positive bowel sounds. Nontender. Musculoskeletal: No clubbing or cyanosis. Pulses are 2+. No edema was noted. Central nervous system (PUBLIC HEALTH ADVISOR): Patient is deaf, mute and blind. He does not communicate, but he does move upper extremities. LAB REVIEW: Complete blood count (CBC) showed WBC 34.2, hemoglobin is 11.3, platelets are 425. Basic metabolic panel (BMP) showed sodium 146, potassium 4.8, chloride 112, bicarbonate is 19, BUN 76, creatinine is 5.6, calcium 8.8, magnesium is 2. CURRENT INPATIENT MEDICATIONS: Patient's medications were all reviewed by me. I have started the patient on D5W at 60 mL/h. ASSESSMENT AND PLAN: 1. Acute nonoliguric renal failure. Patient had bilateral hydroureteronephrosis. He got a right-sided nephrostomy tube, which is having good urine output. Left-sided nephrostomy is being placed today. Renal function is slowly improving. 2. Postobstructive diuresis. Patient's IV fluid was stopped yesterday and after that his sodium has bumped up from 144 to 146. I am going to start the patient on D5W at 60 mL/h. 3. High-grade urothelial cancer status post transurethral resection of bladder tumor. Patient has bilateral hydroureteronephrosis, which is being managed as above. He continues to be on IV antibiotics. Elmore catheter was removed because of minimal urine output. 4. Leukocytosis. Patient is currently on IV cefepime. His urine culture was positive. Blood cultures are negative.
[2018-10-29] MEDS: CEFEPIME HCL 1 GM in D5W MINI-BAG PLUS 50 ML IV SCH (13:19)
[2018-10-29] MEDS ORDERED: LIDOCAINE 1% MDV 20ML VIAL As Ordered ONE (13:58)
[2018-10-29] MEDS ORDERED: ISOVUE-300 61% 50ML VIAL (Q9967) As Ordered ONE (13:58)
[2018-10-29] MEDS ORDERED: MIDAZOLAM INJ 2 MG/2 ML VIAL (J2250) As Ordered ONE (15:07)
[2018-10-29] MEDS ORDERED: fentaNYL 100 MCG/2 ML INJECTION (J3010) As Ordered ONE (15:07)
[2018-10-29] MEDS ORDERED: fentaNYL 100 MCG/2 ML INJECTION (J3010) IV PRN (16:15)
[2018-10-29] MEDS ORDERED: ONDANSETRON 4MG/2ML VIAL (J2405) IV PRN (16:15)
--- NOTE | 2018-10-29 16:22 | REP ---
LEFT NEPHROSTOMY DRAINAGE CATHETER INSERTION The procedure was performed under the direct supervision of Dr. Alejo. The risks and benefits of the procedure were explained and informed consent was obtained by the health care proxy. Anesthesia was present throughout the examination for pain control and sedation. Anesthetic: 6 ml of 1% lidocaine Contrast: 7.5 ml of Omnipaque-300 Estimated blood loss: Less than 1 ml Fluoroscopy time: 1 minute The patient was brought into the interventional suite and placed on the table in the prone oblique position. A time out procedure was performed. The left renal collecting system was localized using ultrasound guidance. The skin was prepped and draped in a sterile fashion. Using ultrasound guidance a 21-gauge needle was inserted and advanced into the latonya. 5 ml of urine was collected and sent for analysis. A nephrostogram was performed. Using fluoroscopic guidance, A 0.018 guidewire was inserted and advanced into the ureter. The needle was removed and a 4.5 dilator and sheath was inserted over the guide wire. The guidewire was removed and the 0.035 guidewire was inserted and advanced into the ureter. The sheath was removed and an 8-[place] Skater APDL catheter was inserted over the guide wire. The loop of the catheter was formed in the renal pelvis. A nephrostogram was performed and images demonstrate good catheter placement. The catheter was affixed to the skin and a sterile dressing was applied. The catheter was connected to a gravity drainage bag. The patient tolerated the procedure well and there were no immediate complications. After the appropriate amount of monitored convalescence the patient was discharged from the department. The patient will be scheduled for bilateral nephrostomy catheter exchanges in 10 to 12 weeks or sooner if necessary. Reviewed by MAIRA Montoya 10/29/2018 04:10 P Electronically Signed by Carroll Alejo MD 10/29/2018 04:13 P
[2018-10-29 16:30] VITALS: BP 161/89
--- NOTE | 2018-10-29 17:05 | IPNPDOC ---
Subjective Date Seen The patient was seen on 10/29/18. Subjective Chief Complaint/HPI B/L hydroureteronephrosis Events since last encounter The patient at baseline has cerebral palsy as well as mental retardation from the same and is unable to answer any questions or provide history. His caregiver at bedside reports that usually the patient is able to tolerate oral intake well. The patient is status post previous right nephrostomy tube and plan is for left nephrostomy tube placement todayI had seen and examined the patient earlier this morning General: Reports: ROS Unobtainable Objective Physical Examination General Exam: Positive: Other (lying in bed. No distress) Eye Exam: Positive: Other Eye Symptoms (patient is legally blind) ENT Exam: Positive: Mucous membr. moist/pink Chest Exam: Positive: Other (clear to auscultation anteriorly for the most part with some adventitious sounds related to secretions) Heart Exam: Positive: Other (S1, S2 heard, slightly tachycardic, no rubs or gallops) Abdomen Exam: Positive: Soft, Other (right nephrostomy in place with clear appearing urine) Neuro Exam: Positive: Other (patient did not answer any questions or follow any commands.) Assessment /Plan Assessment Current Medications Acetaminophen (Tylenol Suppository) 650 mg Q4HP PRN TN PAIN / FEVER Last administered on 10/22/18at 12:36; Start 10/22/18 at 12:15 Acetaminophen (Tylenol Tab) 650 mg Q4HP PRN PO PAIN OR FEVER Last administered on 10/24/18at 20:57; Start 10/20/18 at 16:45 Acetaminophen/ Hydrocodone Bitart ([place], Anexsia 5/325) 1 tab ASDIRECTED PRN PO MILD/MODERATE PAIN (PS 1-7); Start 10/22/18 at 15:00; Stop 10/22/18 at 16:00; Status DC Aspirin (Ecotrin) 81 mg DAILY PO Last administered on 10/28/18at 08:41; Start 10/20/18 at 09:00 Atorvastatin Calcium (Lipitor) 40 mg QHS PO Last administered on 10/28/18at 20:49; Start 10/20/18 at 21:00 Cefepime HCl 1 gm/ Dextrose 50 ml @ 100 mls/hr Q12H IV ; Start 10/23/18 at 13:00; Stop 10/23/18 at 13:00; Status DC Cefepime HCl 1 gm/ Dextrose 50 ml @ 100 mls/hr Q24H IV Last administered on 10/29/18 13:19; Start 10/23/18 at 13:00 Ceftriaxone Sodium 1 gm/ Dextrose 50 ml @ 100 mls/hr Q24H IV Last administered on 10/22/18 16:09; Start 10/21/18 at 14:00; Stop 10/23/18 at 12:04; Status DC Dextrose/Sodium Chloride 1,000 ml @ 150 mls/hr Q6H40M IV Last administered on 10/20/18 20:45; Start 10/20/18 at 14:00; Stop 10/20/18 at 21:05; Status DC Dextrose/Water 1,000 ml @ 60 mls/hr [id number] IV Last administered on 10/29/18 09:53; Start 10/29/18 at 09:45 Divalproex Sodium (Depakote Sprinkles) 500 mg QPM PO Last administered on 10/28/18at 20:49; Start 10/20/18 at 21:00 Divalproex Sodium (Depakote Sprinkles) 750 mg QAM PO Last administered on 10/28/18 08:41; Start 10/21/18 at 09:00 Fentanyl Citrate (Sublimaze) 25 mcg Q5MP PRN IV MODERATE PAIN (PS 4-7); Start 10/29/18 at 16:15; Stop 10/29/18 at 17:15 Heparin Sodium (Porcine) (Heparin) 5,000 units Q12H SC Last administered on 10/28/18at 20:50; Start 10/20/18 at 21:00; Status Future hold Home Med (Med Rec Complete!) ASDIRECTED XX ; Start 10/20/18 at 11:30; Stop 10/20/18 at 11:30; Status DC Lactated Ringer's 1,000 ml @ 75 mls/hr [id number] IV ; Start 10/22/18 at 15:00; Stop 10/22/18 at 16:00; Status DC Magnesium Hydroxide (Milk Of Magnesia) 30 ml DAILYPRN PRN PO CONSTIPATION Last administered on 10/26/18 09:37; Start 10/20/18 at 16:45 Magnesium Sulfate/ Dextrose 1 gm/IV Miscellaneous Supplies 100 ml @ 100 mls/hr Q1H IV Last administered on 10/28/18at 12:01; Start 10/28/18 at 12:00; Stop 10/28/18 at 13:59; Status DC Metoprolol Succinate (TopROL XL) 25 mg DAILY PO Last administered on 10/28/18at 08:41; Start 10/20/18 at 09:00 Morphine Sulfate (Morphine Sulfate Inj) 1 mg Q4HP PRN IV PAIN; Start 10/23/18 at 12:15; Stop 10/28/18 at 08:43; Status DC Multivitamins (Theragram-M) 1 tab DAILY PO Last administered on 10/28/18at 08:41; Start 10/21/18 at 09:00 Ondansetron HCl (ZOFRAN INJection) 4 mg Q4HP PRN IV NAUSEA OR VOMITING; Start 10/22/18 at 15:00; Stop 10/22/18 at 16:00; Status DC Ondansetron HCl (ZOFRAN INJection) 4 mg Q4HP PRN IV NAUSEA OR VOMITING; Start 10/29/18 at 16:15; Stop 10/29/18 at 17:15 Pantoprazole Sodium (Protonix) 40 mg BID IV Last administered on 10/28/18at 20:50; Start 10/20/18 at 21:00 Patiromer (Veltassa) 16.8 gm DAILY@1200 PO Last administered on 10/23/18at 13:31; Start 10/21/18 at 12:00; Stop 10/24/18 at 08:39; Status DC Polyethylene Glycol (Miralax) 1 pkt DAILYPRN PRN PO CONSTIPATION; Start 10/20/18 at 16:45 Sodium Bicarbonate 75 meq/Dextrose/Water 1,075 ml @ 100 mls/hr [id number] IV Last administered on 10/24/18at 04:39; Start 10/20/18 at 21:30; Stop 10/24/18 at 08:39; Status DC Sodium Chloride 1,000 ml @ 100 mls/hr Q10H IV Last administered on 10/28/18at 10:11; Start 10/24/18 at 08:45; Stop 10/28/18 at 17:06; Status DC Sodium Chloride 1,000 ml @ 120 mls/hr Q8H20M IV ; Start 10/20/18 at 13:24; Stop 10/20/18 at 13:52; Status DC Sodium Chloride 1,000 ml @ 150 mls/hr Q6H40M IV Last administered on 10/20/18at 12:34; Start 10/20/18 at 12:30; Stop 10/20/18 at 13:42; Status DC Sodium Chloride ([place] Nasal [place]) 1 spray Q4HP PRN NA NASAL DRYNESS; Start 10/20/18 at 16:45 Sodium Chloride (Saline Lock Flush) 2 ml ASDIRECTED PRN IV SEE LABEL COMMENTS; Start 10/28/18 at 17:15 Sodium Chloride (Saline Lock Flush) 2 ml SLF IV Last administered on 10/29/18at 06:37; Start 10/28/18 at 22:00 Complicated aerococcus urinary tract infection, PoA, in setting of bilateral hydroureteronephrosis status post right nephrostomy replacement: -Blood cultures 10/20: Negative at 5 days; Urine cultures 10/20: Aerococcus urinae ; Culture from R kidney 10/22: Negative -Chest x-ray and CT scan brain completed at [facility] negative for acute findings -Cefepime (Day #7); s/p Ceftriaxone (Received 5 days) -Wbc's higher todayno overt sepsis/high fevers. No diarrhea. -Chest x-ray 10/28 showed right basilar atelectasis with small effusion -We'll consult ID for the worsening leukocytosis and to make recommendations regarding the antibiotics -Patient to have left nephrostomy today Acute non-oliguric renal failure suspect secondary to obstructive uropathy slight bilateral hydroureteronephrosis in setting of high-grade urothelial c ancer: -History of CKD3 baseline creatinine about 1.4 -s/p R sided nephrostomy tube placement 10/22 with IR -Plan for left nephrostomy today -Nephrology and Urology on consultation -Creatinine slightly better at 5.6 today compared to yesterday. 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 Solis -Will require outpatient urology follow-up on discharge Hypernatremia -On D5W IV fluids Hyperkalemia -Resolved Macrocytic anemia -?dilutional -s/p 2 units PRBC -Hgb remains stable Cerebral palsy with profound mental retardation HTN; s/p Hypertensive Crisis -Ct Metoprolol DLP - c/w Atorvastatin Neurogenic bladder - s/p [place]more Catheter Anxiety / Behavioral problems - c/w Divalproex Cataracts Osteoporosis - c/w Vitamin D / Calcium supplementation GERD - c/w Protonix DVT prophylaxis - c/w Heparin Disposition: -Plan is nephrostomy today. Was leukocytosis notedwe will consult ID. Family contact: - Maddy (Sister) [phone] - Joceline ([employer] [facility]) [phone] Plan/VTE VTE Prophylaxis Ordered?: Yes VS, I&O, 24H, Fishbone Vital Signs/I&O Vital Signs Date Time Temp Pulse Resp B/P (MAP) Pulse Ox O2 Delivery O2 Flow Rate FiO2 10/29/18 16:28 96.4 85 21 139/79 (99) 94 I&O- Last 24 Hours up to 6 AM 10/29/18 06:00 Intake Total 2130 ml Output Total 3425 ml Balance -1295 ml Laboratory Data 24H LABS Laboratory Tests 2 10/29/18 05:04: White Blood Count 34.2*H, Red Blood Count 3.74L, Hemoglobin 11.3L, Hematocrit 35.1L, Mean Corpuscular Volume 93.9, Mean Corpuscular Hemoglobin 30.2, Mean Corpuscular Hemoglobin Concent 32.2, Red Cell Distribution Width 14.8H, Platelet Count 425, Neutrophils # (Auto) , Monocytes # (Auto) , Nucleated Red Blood Cells % (auto) 0.0, Neutrophils 83H, Band Neutrophils 3, Lymphocytes (Manual) 5L, Monocytes (Manual) 5, Eosinophils (Manual) 2, Metamyelocytes 2H, Platelet Estimate INCREASED, Red Blood Cell Morphology NORMAL, Anion Gap 15, Glomerular Filtration Rate 10.5L, Blood Urea Nitrogen 76H, Creatinine 5.68H, Sodium Level 146H, Potassium Level 4.8, Chloride Level 112H, Carbon Dioxide Level 19L, Calcium Level 8.8, Magnesium Level 2.0 CBC/BMP Laboratory Tests 10/29/18 05:04 Red Blood Count 3.74 L, Mean Corpuscular Volume 93.9, Mean Corpuscular Hemoglobin 30.2, Mean Corpuscular Hemoglobin Concent 32.2, Red Cell Distribution Width 14.8 H, Neutrophils # (Auto) , Monocytes # (Auto) , Calcium Level 8.8 Microbiology Microbiology 10/20/18 Blood Culture - Final, Complete NO GROWTH AFTER 5 DAYS 10/20/18 Blood Culture - Final, Complete NO GROWTH AFTER 5 DAYS 10/21/18 Stool Occult Blood (BENJAMIN) - Final, Complete 10/29/18 Anaerobic Culture, Received Pending 10/22/18 Anaerobic Culture - Final, Complete 10/20/18 Urine Culture - Final, Complete Aerococcus Urinae 10/29/18 Gram Stain, Received Pending 10/29/18 Body Fluid Culture, Received Pending 10/22/18 Gram Stain - Final, Complete 10/22/18 Body Fluid Culture - Final, Complete SALLIE GANT MD October 29, 2018 17:05
[2018-10-29] MEDS: PANTOPRAZOLE 40MG INJ (PROTONIX) (C9113) IV SCH ×2 (17:17→21:54)
[2018-10-29] MEDS: ASPIRIN 81 MG ENTERIC TAB PO SCH (17:18)
[2018-10-29] MEDS: DIVALPROEX SPRINKLE 125 MG CAP PO SCH ×2 (17:18→21:54)
[2018-10-29] MEDS: METOPROLOL SUCC *XL* 25MG TAB (TopROL *XL*) PO SCH (17:18)
[2018-10-29] MEDS: MULTIVITAMINS/MINERALS THERAP 1 TAB PO SCH (17:18)
--- NOTE | 2018-10-29 19:46 | CR ---
DATE OF CONSULTATION: 10/29/2018 Asked to consult by hospitalist for evaluation of leukocytosis in a patient with a culture positive for Aerococcus urinae. HISTORY OF PRESENT ILLNESS: Mr. Lang is a 72-year-old gentleman who [facility], where he gets 24-hour care. He has a history of cerebral palsy, mental retardation, and neurogenic bladder. The patient was brought in by his family members due to fevers and decreased urine output and lethargy. He had a CT scan at [facility], which showed a mass around his right ureter and lesions in the liver suspicious for metastatic disease. He was noted to have acute renal failure. He was transferred to our care for urology services. The patient according to his caregiver seems a little bit better. He is eating well. He is having his dinner. Currently he has no nausea, vomiting, or diarrhea. He had a right nephrostomy tube placed earlier this admission and his left nephrostomy tube placed today. He had undergone a cystoscopy with a transurethral resection of bladder tumor (TURBT) on 09/17/2018, and pathology was consistent with high-grade squamous carcinoma. Since hospitalization, the patient was treated with cefepime intravenous (IV) since October 23. Prior to that he had received ceftriaxone October 21 and October 22. He as no nausea, vomiting, or diarrhea. Maybe right lower quadrant abdominal pain on palpation. He is not able to give a history. PAST MEDICAL HISTORY: Significant for: 1. Cerebral palsy. 2. Severe mental retardation, nonverbal. He is able to get up and pivot. 3. Hyperlipidemia. 4. Gastroesophageal reflux disease. 5. Hypertension. 6. Recurrent urinary tract infection. 7. History of positive purified protein derivative (PPD) in 2012. 8. Autism. 9. Hiatal hernia. 10. Neurogenic bladder. 11. Constipation. 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 13. Cataracts. ALLERGIES: PPD. PAST SURGICAL HISTORY: 1. Eyelid surgery in 2015. 2. Cystoscopy with bladder tumor resection 09/17/2018. FAMILY HISTORY: Not relevant. SOCIAL HISTORY: He does not smoke, drink. He lives in housing with 12 other mentally handicapped residents. LABORATORY DATA: White count on admission was 25.8, currently 34.2, hemoglobin 11.3, hematocrit 35.1, platelets 425, 83% neutrophils, 3% bands, 5% lymphocytes. Sodium 146, potassium 4.8, chloride 112, bicarbonate 19, BUN 76, creatinine 5.68. On admission his creatinine was 9.4. GFR 10, glucose 120, calcium 8.8, magnesium 2. Blood cultures on October 20, two sets were negative. Urine culture had Aerococcus urinae, 50,000 units. Right kidney culture was negative. Left kidney aerobic and anaerobic are pending. IMAGING STUDIES: Chest x-ray done on October 28 showed right basilar atelectasis and small left pleural effusion. CT abdomen and pelvis October 25: Right hydronephrosis has improved. Stable left-sided hydronephrosis with an obstructing mass in the distal ureter on the left side. Small bilateral pleural effusions. Right nephrostomy drainage catheter insertion was done using ultrasound guidance by Edgardo Suarez. Left nephrostomy drainage procedure was done by Edgardo Suarez under the supervision of Dr. Alejo on October 29. PHYSICAL EXAMINATION: Temperature is 96.7, pulse 86, respirations 18, blood pressure 161/86, oxygen saturation 96% on room air. HEART: Normal S1, S2. No murmurs appreciated. LUNGS: Clear. No wheezes, rales, or rhonchi. ABDOMEN: Soft, mildly tender in the right lower quadrant. BACK: No costovertebral angle (CVA) tenderness. He has bilateral nephrostomy tube. The right side has clear urine. The left side has bloody urine. EXTREMITIES: Flexion contractions, both legs. No decubitus ulcer. No clubbing, cyanosis, or edema. No rashes. 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 He underwent bilateral nephrostomy tubes. Urine culture was positive for Aerococcus, and patient has been on at least 7 days of cephalosporin and a combination of cefepime and ceftriaxone. His leukocytosis has worsened in spite of him being afebrile and clinically well. Aerococcus is usually susceptible to cephalosporins, penicillins, and vancomycin but there have been a few reported cases of cephalosporin resistance. Penicillin and vancomycin would be alternative drugs. CT of abdomen and pelvis done without contrast. Lungs have bibasilar atelectasis, pericardial thickening versus small pericardial effusion. There is increased circumferential thickening of the wall of the distal esophagus and hiatus hernia, hypodense lesion in the left lobe of the liver. May represent a cyst or hemangioma. Adrenals, spleen, kidneys are normal except for moderate bilateral hydronephrosis, mild prostatic hyperplasia, and a mass in the bladder measuring 5.1 x 5.5 cm. DDX infectious vs malignancy reactive leukocytosis This pathogen had been identified recently as an emerging pathogen as a cause of a urinary tract infection in patients with bladder pathology, especially cancer. PLAN Will also call microbiology and ask them for susceptibility testing on his most current urine culture if Aerococcus grows again, to make sure that it is susceptible to penicillin. Will continue to monitor. Consider repeat CT abdomen and pelvis to RO abscess MTDD
[2018-10-29 20:00] VITALS: BP 153/86
[2018-10-29] MEDS: ATORVASTATIN 20 MG TAB PO SCH (21:53)
[2018-10-29] MEDS: AMPICILLIN SOD 2 GM in D5W MINI-BAG PLUS 100 ML IV SCH (21:54)
[2018-10-29 23:59] VITALS: BP 149/105
[2018-10-30] MEDS: D5W 1,000 ML IV SCH ×2 (03:37→21:11)
[2018-10-30 04:00] VITALS: BP 143/69
[2018-10-30] MEDS: SLF 3 ML SYR IV SCH ×3 (05:11→22:00)
[2018-10-30 06:28] LABS: HEMATOCRIT 35.8 % (42.0-52.0); HEMOGLOBIN 11.6 g/dl (13.5-17.5); MEAN CORPUSCULAR HEMOGLOBIN 30.9 pg (27.0-33.0); MEAN CORPUSCULAR HGB CONC 32.4 g/dl (32.0-36.5); MEAN CORPUSCULAR VOLUME 95.2 fl (80.0-96.0); PLATELET COUNT, AUTOMATED 416 10^3/uL (150-450); RED BLOOD COUNT 3.76 10^6/uL (4.30-6.10)
[2018-10-30 06:50] LABS: WHITE BLOOD COUNT 33.8 10^3/uL (4.0-10.0)
[2018-10-30 06:56] LABS: CALCIUM LEVEL 9.7 MG/DL (8.8-10.2); CREATININE FOR GFR 4.43 MG/DL (0.70-1.30); MAGNESIUM LEVEL 1.9 MG/DL (1.8-2.4); POTASSIUM SERUM 4.7 MEQ/L (3.5-5.1)
[2018-10-30 07:40] LABS: ATYPICAL LYMPH 1 % (0-5); BASOPHILS 1 % (0-4); EOSINOPHILS 5 % (0-5); LYMPHOCYTES 3 % (16-52); METAMYELOCYTES 1 % (0-0); MONOCYTES 5 % (0-8); NEUTROPHILS 81 % (35-75)
[2018-10-30 07:41] LABS: PLATELET ESTIMATE INCREASED (NORMAL)
[2018-10-30 08:00] VITALS: BP 130/80
[2018-10-30] MEDS: AMPICILLIN SOD 2 GM in D5W MINI-BAG PLUS 100 ML IV SCH ×2 (09:30→21:31)
[2018-10-30] MEDS: DIVALPROEX SPRINKLE 125 MG CAP PO SCH ×2 (09:31→21:32)
[2018-10-30] MEDS: HEPARIN SOD (PORCINE) 5000 UNITS/ML VIAL SC SCH ×2 (09:31→21:33)
[2018-10-30] MEDS: ASPIRIN 81 MG ENTERIC TAB PO SCH (09:31)
[2018-10-30] MEDS: PANTOPRAZOLE 40MG INJ (PROTONIX) (C9113) IV SCH ×2 (09:31→21:32)
[2018-10-30] MEDS: MULTIVITAMINS/MINERALS THERAP 1 TAB PO SCH (09:32)
[2018-10-30] MEDS: METOPROLOL SUCC *XL* 25MG TAB (TopROL *XL*) PO SCH (09:32)
[2018-10-30 12:00] VITALS: BP 132/72
--- NOTE | 2018-10-30 13:39 | REP ---
Clinical: Possible aspiration pneumonia . Comparison: 10/28/2018 . Findings: The mediastinum and cardiac silhouette are stable and within normal limits for portable technique. Mild bibasilar atelectasis and small pleural effusions are suspected and should be correlated clinically. No pneumothorax. Skeletal structures stable. Impression: Mild bibasilar atelectasis and small pleural effusions. Electronically Signed by Wellington Burnett MD 10/30/2018 01:31 P
--- NOTE | 2018-10-30 14:31 | NUR ---
Recommend pureed solids, honey thick liquids by spoon, full assist for PO intake & oral care, med's in puree assist, please assist w/ upright positioning. Dysphagia tx f/u diet tolerance & carryover recommendations. Addendum: 10/30/18 at [address] [facility] Amended: Links added.
[2018-10-30 16:00] VITALS: BP 131/87
--- NOTE | 2018-10-30 17:19 | IPNPDOC ---
Subjective Date Seen The patient was seen on 10/30/18. Subjective Chief Complaint/HPI Bilateral hydroureteronephrosis Events since last encounter The patient at baseline has cerebral palsy and mental retardation and is nonverbal. Therefore history is limited. Patient is status post placement of left nephrostomy tube yesterday. Nurses reported that the patient did have an episode of coughing/choking while eating todaypatient was subsequently seen by WELFARE ELIGIBILITY INTERVIEWER and has been recommended nectar thick liquids. Objective Physical Examination General Exam: Positive: Other (sleeping in bed, arousable.) Eye Exam: Positive: Other Eye Symptoms (patient is legally blind) ENT Exam: Positive: Mucous membr. moist/pink Chest Exam: Positive: Other (clear to auscultationno overt wheeze or distress.) Heart Exam: Positive: Other (S1, S2 heard, slightly tachycardic, regular rhythm. No rubs or gallops) Abdomen Exam: Positive: Soft, Other (bilateral nephrostomy tubes in place. Clear appearing urine on the right side, slightly blood-tinged urine on the left side.) Neuro Exam: Positive: Other (sleeping, arousable.) Assessment /Plan Assessment Current Medications Acetaminophen (Tylenol Suppository) 650 mg Q4HP PRN DE PAIN / FEVER Last administered on 10/22/18at 12:36; Start 10/22/18 at 12:15 Acetaminophen (Tylenol Tab) 650 mg Q4HP PRN PO PAIN OR FEVER Last administered on 10/24/18at 20:57; Start 10/20/18 at 16:45 Acetaminophen/ Hydrocodone Bitart ([place], Anexsia 5/325) 1 tab ASDIRECTED PRN PO MILD/MODERATE PAIN (PS 1-7); Start 10/22/18 at 15:00; Stop 10/22/18 at 16:00; Status DC Ampicillin Sodium 2 gm/Dextrose 100 ml @ 200 mls/hr Q12H IV Last administered on 10/30/18at 09:30; Start 10/29/18 at 21:00 Aspirin (Ecotrin) 81 mg DAILY PO Last administered on 10/30/18at 09:31; Start 10/20/18 at 09:00 Atorvastatin Calcium (Lipitor) 40 mg QHS PO Last administered on 10/29/18at 21:53; Start 10/20/18 at 21:00 Cefepime HCl 1 gm/ Dextrose 50 ml @ 100 mls/hr Q12H IV ; Start 10/23/18 at 13:00; Stop 10/23/18 at 13:00; Status DC Cefepime HCl 1 gm/ Dextrose 50 ml @ 100 mls/hr Q24H IV Last administered on 10/29/18at 13:19; Start 10/23/18 at 13:00; Stop 10/29/18 at 19:16; Status DC Ceftriaxone Sodium 1 gm/ Dextrose 50 ml @ 100 mls/hr Q24H IV Last administered on 10/22/18at 16:09; Start 10/21/18 at 14:00; Stop 10/23/18 at 12:04; Status DC Dextrose/Sodium Chloride 1,000 ml @ 150 mls/hr Q6H40M IV Last administered on 10/20/18at 20:45; Start 10/20/18 at 14:00; Stop 10/20/18 at 21:05; Status DC Dextrose/Water 1,000 ml @ 60 mls/hr [id number] IV Last administered on 10/30/18at 03:37; Start 10/29/18 at 09:45 Divalproex Sodium (Depakote Sprinkles) 500 mg QPM PO Last administered on 10/29/18 21:54; Start 10/20/18 at 21:00 Divalproex Sodium (Depakote Sprinkles) 750 mg QAM PO Last administered on 10/30/18 09:31; Start 10/21/18 at 09:00 Fentanyl Citrate (Sublimaze) 25 mcg Q5MP PRN IV MODERATE PAIN (PS 4-7); Start 10/29/18 at 16:15; Stop 10/29/18 at 17:15; Status DC Heparin Sodium (Porcine) (Heparin) 5,000 units Q12H SC Last administered on 10/30/18at 09:31; Start 10/20/18 at 21:00; Status Future hold Home Med (Med Rec Complete!) ASDIRECTED XX ; Start 10/20/18 at 11:30; Stop 10/20/18 at 11:30; Status DC Lactated Ringer's 1,000 ml @ 75 mls/hr [id number] IV ; Start 10/22/18 at 15:00; Stop 10/22/18 at 16:00; Status DC Magnesium Hydroxide (Milk Of Magnesia) 30 ml DAILYPRN PRN PO CONSTIPATION Last administered on 10/26/18 09:37; Start 10/20/18 at 16:45 Magnesium Sulfate/ Dextrose 1 gm/IV Miscellaneous Supplies 100 ml @ 100 mls/hr Q1H IV Last administered on 10/28/18 12:01; Start 10/28/18 at 12:00; Stop 10/28/18 at 13:59; Status DC Metoprolol Succinate (TopROL XL) 25 mg DAILY PO Last administered on 10/30/18 09:32; Start 10/20/18 at 09:00 Morphine Sulfate (Morphine Sulfate Inj) 1 mg Q4HP PRN IV PAIN; Start 10/23/18 at 12:15; Stop 10/28/18 at 08:43; Status DC Multivitamins (Theragram-M) 1 tab DAILY PO Last administered on 10/30/18 09:32; Start 10/21/18 at 09:00 Ondansetron HCl (ZOFRAN INJection) 4 mg Q4HP PRN IV NAUSEA OR VOMITING; Start 10/22/18 at 15:00; Stop 10/22/18 at 16:00; Status DC Ondansetron HCl (ZOFRAN INJection) 4 mg Q4HP PRN IV NAUSEA OR VOMITING; Start 10/29/18 at 16:15; Stop 10/29/18 at 17:15; Status DC Pantoprazole Sodium (Protonix) 40 mg BID IV Last administered on 10/30/18 09:31; Start 10/20/18 at 21:00 Patiromer (Veltassa) 16.8 gm DAILY@1200 PO Last administered on 10/23/18at 13:31; Start 10/21/18 at 12:00; Stop 10/24/18 at 08:39; Status DC Polyethylene Glycol (Miralax) 1 pkt DAILYPRN PRN PO CONSTIPATION; Start 10/20/18 at 16:45 Sodium Bicarbonate 75 meq/Dextrose/Water 1,075 ml @ 100 mls/hr [id number] IV Last administered on 10/24/18at 04:39; Start 10/20/18 at 21:30; Stop 10/24/18 at 08:39; Status DC Sodium Chloride 1,000 ml @ 100 mls/hr Q10H IV Last administered on 10/28/18at 10:11; Start 10/24/18 at 08:45; Stop 10/28/18 at 17:06; Status DC Sodium Chloride 1,000 ml @ 120 mls/hr Q8H20M IV ; Start 10/20/18 at 13:24; Stop 10/20/18 at 13:52; Status DC Sodium Chloride 1,000 ml @ 150 mls/hr Q6H40M IV Last administered on 10/20/18at 12:34; Start 10/20/18 at 12:30; Stop 10/20/18 at 13:42; Status DC Sodium Chloride (Mcbaine Nasal [place]) 1 spray Q4HP PRN NA NASAL DRYNESS; Start 10/20/18 at 16:45 Sodium Chloride (Saline Lock Flush) 2 ml ASDIRECTED PRN IV SEE LABEL COMMENTS; Start 10/28/18 at 17:15 Sodium Chloride (Saline Lock Flush) 2 ml SLF IV Last administered on 10/30/18at 05:11; Start 10/28/18 at 22:00 Complicated aerococcus urinary tract infection, PoA, in setting of bilateral hydroureteronephrosis status post bilateral nephrostomy tube placement: -Blood cultures 10/20: Negative; Urine cultures 10/20: Aerococcus urinae; Culture from R kidney 10/22: Negative, culture from left kidney 10/29pending -Chest x-ray and CT scan brain completed at [facility] negative for acute findings -Finish 7 days of Cefepime after 2 days of ceftriaxone. Currently on Unasyn day 1 per IDappreciate input. -Wbc's still high at 33,000. Monitor. No overt fever -Chest x-ray 10/28 showed right basilar atelectasis with small effusion Acute non-oliguric renal failure suspect secondary to obstructive uropathy slight bilateral hydroureteronephrosis in setting of high-grade urothelial cancer: -History of CKD3 baseline creatinine about 1.4 -s/p R sided nephrostomy tube placement 10/22 and left nephrostomy tube placement 10/29 by IR -Nephrology on board -Creatinine improving. 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 Solis -Will require outpatient urology follow-up on discharge Hypernatremia -On D5W IV fluids Hyperkalemia -Resolved Macrocytic anemia -?dilutional -s/p 2 units PRBC -Hgb remains stable Cerebral palsy with profound mental retardation HTN; s/p Hypertensive Crisis -Ct Metoprolol DLP - c/w Atorvastatin Neurogenic bladder - s/p Elmore Catheter Anxiety / Behavioral problems - c/w Divalproex Cataracts Osteoporosis - c/w Vitamin D / Calcium supplementation GERD - c/w Protonix DVT prophylaxis - c/w Heparin Disposition: -Anticipate discharge is medically stablecurrently WBC remains quite high and patient is on IV Unasyn. Plan will also be for palliative consult on discharge Family contact: - Maddy (Sister) [phone] - Joceline ([employer] [facility]) [phone] Plan/VTE VTE Prophylaxis Ordered?: Yes VS, I&O, 24H, Fishbone Vital Signs/I&O Vital Signs Date Time Temp Pulse Resp B/P (MAP) Pulse Ox O2 Delivery O2 Flow Rate FiO2 10/30/18 16:00 98.1 89 20 131/87 (102) 96 I&O- Last 24 Hours up to 6 AM 10/30/18 06:00 Intake Total 1080 ml Output Total 1355 ml Balance -275 ml Laboratory Data 24H LABS Laboratory Tests 2 10/30/18 05:56: White Blood Count 33.8*H, Red Blood Count 3.76L, Hemoglobin 11.6L, Hematocrit 35.8L, Mean Corpuscular Volume 95.2, Mean Corpuscular Hemoglobin 30.9, Mean Corpuscular Hemoglobin Concent 32.4, Red Cell Distribution Width 14.8H, Platelet Count 416, Neutrophils # (Auto) , Monocytes # (Auto) , Nucleated Red Blood Cells % (auto) 0.0, Neutrophils 81H, Band Neutrophils 3, Lymphocytes (Manual) 3L, Monocytes (Manual) 5, Eosinophils (Manual) 5, Basophils (Manual) 1, Metamyelocytes 1H, Atypical Lymphocytes 1, Platelet Estimate INCREASED, Red Blood Cell Morphology NORMAL, Anion Gap 10, Glomerular Filtration Rate 14.0L, B lood Urea Nitrogen 74H, Creatinine 4.43H, Sodium Level 143, Potassium Level 4.7, Chloride Level 113H, Carbon Dioxide Level 20L, Calcium Level 9.7, Magnesium Level 1.9, C-Reactive Protein, Quantitative 22.00H CBC/BMP Laboratory Tests 10/30/18 05:56 Red Blood Count 3.76 L, Mean Corpuscular Volume 95.2, Mean Corpuscular Hemoglobin 30.9, Mean Corpuscular Hemoglobin Concent 32.4, Red Cell Distribution Width 14.8 H, Neutrophils # (Auto) , Monocytes # (Auto) , Calcium Level 9.7 Microbiology Microbiology 10/20/18 Blood Culture - Final, Complete NO GROWTH AFTER 5 DAYS 10/20/18 Blood Culture - Final, Complete NO GROWTH AFTER 5 DAYS 10/21/18 Stool Occult Blood (BENJAMIN) - Final, Complete 10/29/18 Anaerobic Culture, Received Pending 10/22/18 Anaerobic Culture - Final, Complete 10/20/18 Urine Culture - Final, Complete Aerococcus Urinae 10/29/18 Gram Stain - Final, Resulted 10/29/18 Body Fluid Culture, Resulted Pending 10/22/18 Gram Stain - Final, Complete 10/22/18 Body Fluid Culture - Final, Complete SALLIE GANT MD October 30, 2018 17:19
[2018-10-30 20:00] VITALS: BP 138/88
[2018-10-30] MEDS: ATORVASTATIN 20 MG TAB PO SCH (21:33)
--- NOTE | 2018-10-30 23:29 | IPN ---
DATE: 10/30/2018 SUBJECTIVE The patient was seen and examined at the bedside today morning. He is nonverbal. He is sleepy right now. Renal function continues to improve. Creatinine is 74.4. The patient got the left-sided percutaneous nephrostomy done as well. He continues to be on IV fluid hydration. Electrolytes are within the acceptable range. OBJECTIVE Vital signs: Temperature is 97.7 degrees Fahrenheit. Blood pressure 132/72, pulse is 89, respiratory rate of 18, saturating 97% on room air. Intake and output: Urine output recorded is 375 mL from one nephrostomy and 450 mL from the other nephrostomy. Weight in the bed scale is 60.2 kg. PHYSICAL EXAMINATION General: The patient is laying in bed, nonverbal, does not follow commands. Head and neck examination: Patient is legally blind. Mucous membranes are moist. Neck is supple. There is no jugular venous distention (JVD). Cardiovascular: S1, S2, regular rate. No edema of the bilateral lower extremities. Respiratory: Chest is clear to auscultation bilaterally. Bilateral equal air entry. No rales or rhonchi. Abdomen: Soft. Positive bowel sounds. Nontender. Musculoskeletal: No clubbing or cyanosis. Pulses are 2+. 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 He cannot communicate, but he moves upper extremities. LAB REVIEW: CBC showed a WBC of 33.8, hemoglobin 11.3, platelets of 416. BMP showed sodium 143, potassium 4.7, chloride 113, bicarb 20, BUN 74, creatinine is 4.4, calcium 9.7, magnesium 1.9, C-reactive protein is 22. Microbiology: Cultures from the percutaneous nephrostomy tube was still pending. IMAGING STUDIES A chest x-ray was done today for possible aspiration pneumonitis, which showed mild bibasilar atelectasis and small pleural effusion. CURRENT INPATIENT MEDICATIONS: The patient's medications were all reviewed by me. He was started on Omnipen 2 grams IV every 12 hourly. He is also on D5W at 60 mL an hour. No other change in the medications today as compared with yesterday. ASSESSMENT/PLAN 1. Acute nonoliguric renal failure. The patient had bilateral hydroureteronephrosis. Now he has bilateral nephrostomy tubes. He has good urine output. Renal function is improving. Continue IV fluid hydration. 2. Postobstructive diuresis. The patient had postobstructive diuresis after right-sided percutaneous nephrostomy. However, it has been controlled now. IV fluid rate has been changed to 60 mL an hour. Continue to monitor the left-sided nephrostomy output for postobstructive diuresis now. 3. Leukocytosis. Cultures are still negative. He was initially on cefepime. Right now he is on Omnipen. Dose and duration of antibiotics is as per primary team. 4. High grade urothelial cancer, status post transurethral resection of bladder tumor. The patient has bilateral hydroureteronephrosis requiring bilateral percutaneous nephrostomy. The rest of the management is as per urology recommendations. 5. Hypernatremia. The patient had hypernatremia secondary to decreased oral intake. He is currently on IV D5W. Sodium level has improved to 143 now.
[2018-10-30 23:59] VITALS: BP 139/74
[2018-10-31 04:00] VITALS: BP 143/86
[2018-10-31 05:39] LABS: HEMATOCRIT 34.9 % (42.0-52.0); MEAN CORPUSCULAR HEMOGLOBIN 29.7 pg (27.0-33.0); MEAN CORPUSCULAR HGB CONC 31.5 g/dl (32.0-36.5); MEAN CORPUSCULAR VOLUME 94.3 fl (80.0-96.0); PLATELET COUNT, AUTOMATED 400 10^3/uL (150-450)
[2018-10-31 05:47] LABS: WHITE BLOOD COUNT 34.8 10^3/uL (4.0-10.0)
[2018-10-31 06:00] LABS: CALCIUM LEVEL 9.7 MG/DL (8.8-10.2); CREATININE FOR GFR 3.4 MG/DL (0.70-1.30); MAGNESIUM LEVEL 1.6 MG/DL (1.8-2.4); POTASSIUM SERUM 4.8 MEQ/L (3.5-5.1)
[2018-10-31] MEDS: SLF 3 ML SYR IV SCH ×3 (06:00→20:30)
[2018-10-31 06:39] LABS: ANISOCYTOSIS 1+; LYMPHOCYTES 5 % (16-52); METAMYELOCYTES 1 % (0-0); MONOCYTES 7 % (0-8); MYELOCYTES 1 % (0-0); NEUTROPHILS 85 % (35-75); PLATELET ESTIMATE NORMAL (NORMAL)
[2018-10-31 08:00] VITALS: BP 140/75
[2018-10-31] MEDS ORDERED: MAG SULF 1GM/100ML (MAG RUN) 1 GM in APPROPRIATE DILUENT 1 EA IV ONE (08:00)
[2018-10-31] MEDS: PANTOPRAZOLE 40MG INJ (PROTONIX) (C9113) IV SCH ×2 (09:07→20:30)
[2018-10-31] MEDS: MULTIVITAMINS/MINERALS THERAP 1 TAB PO SCH (09:08)
[2018-10-31] MEDS: ASPIRIN 81 MG ENTERIC TAB PO SCH (09:08)
[2018-10-31] MEDS: DIVALPROEX SPRINKLE 125 MG CAP PO SCH ×2 (09:08→20:28)
[2018-10-31] MEDS: METOPROLOL SUCC *XL* 25MG TAB (TopROL *XL*) PO SCH (09:08)
[2018-10-31] MEDS: HEPARIN SOD (PORCINE) 5000 UNITS/ML VIAL SC SCH ×2 (09:09→20:29)
[2018-10-31] MEDS: D5W 1,000 ML IV SCH (09:14)
[2018-10-31] MEDS: AMPICILLIN SOD 2 GM in D5W MINI-BAG PLUS 100 ML IV SCH ×2 (11:40→20:28)
[2018-10-31 12:00] VITALS: BP 141/69
[2018-10-31] MEDS: SODIUM BICARBONATE 50 MEQ in D5W 1,000 ML IV SCH (12:55)
[2018-10-31 16:00] VITALS: BP 121/69
--- NOTE | 2018-10-31 18:12 | IPNPDOC ---
Subjective Date Seen The patient was seen on 10/31/18. Subjective Chief Complaint/HPI Bilateral hydroureteronephrosis Events since last encounter The caregiver at bedside reports that the patient tolerated breakfast well. No problems with choking. Patient was seen by LEAD PRESS OPERATOR yesterday and had been recommended honey thick liquids. Patient himself has mental retardation related to cerebral palsy and unable to answer any questions. Objective Physical Examination General Exam: Positive: Other (sleeping in bed, arousable.) Eye Exam: Positive: Other Eye Symptoms (patient is legally blind) ENT Exam: Positive: Mucous membr. moist/pink Chest Exam: Positive: Other (clear to auscultationno overt wheeze or distress.) Heart Exam: Positive: Other (S1, S2 heard, regular rhythm. No rubs or gallops) Abdomen Exam: Positive: Soft, Other (bilateral nephrostomy tubes in place. Right tubelight yellow urine. Left tubeslightly blood-tinged urine.) Neuro Exam: Positive: Other (sleeping, arousable.) Assessment /Plan Assessment Complicated aerococcus urinary tract infection, PoA, in setting of bilateral h ydroureteronephrosis status post bilateral nephrostomy tube placement: -Blood cultures 10/20: Negative; Urine cultures 10/20: Aerococcus urinae; Culture from R kidney 10/22: Negative, culture from left kidney 10/29negative -Chest x-ray and CT scan brain completed at [facility] negative for acute findings -Received 7 days of Cefepime after 2 days of ceftriaxone. Currently on Unasyn day 2 per ID recs -WBCs remain high at 34,000. -Chest x-ray 10/28 showed right basilar atelectasis with small effusion Leukocytosis: -Management as noted above Acute non-oliguric renal failure suspect secondary to obstructive uropathy slight bilateral hydroureteronephrosis in setting of high-grade urothelial cancer: -History of CKD3 baseline creatinine about 1.4 -s/p R sided nephrostomy tube placement 10/22 and left nephrostomy tube placement 10/29 by IR -Nephrology on board -Creatinine improving - down to 3.4. Monitor. 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 Solis -Will require outpatient urology follow-up on discharge Hypernatremia -Resolved -On D5W IV fluids - appreciate input by nephrology Hyperkalemia -Resolved Macrocytic anemia -?dilutional -s/p 2 units PRBC -Hgb remains stable Cerebral palsy with profound mental retardation HTN; s/p Hypertensive Crisis -Ct Metoprolol DLP - c/w Atorvastatin Neurogenic bladder - s/p Elmore Catheter Anxiety / Behavioral problems - c/w Divalproex Cataracts GERD - c/w Protonix DVT prophylaxis - c/w Heparin Plan/VTE VTE Prophylaxis Ordered?: Yes VS, I&O, 24H, Fishbone Vital Signs/I&O Vital Signs Date Time Temp Pulse Resp B/P (MAP) Pulse Ox O2 Delivery O2 Flow Rate FiO2 10/31/18 16:00 97.2 84 16 121/69 (86) 95 I&O- Last 24 Hours up to 6 AM 10/31/18 06:00 Intake Total 2060 ml Output Total 2475 ml Balance -415 ml Laboratory Data 24H LABS Laboratory Tests 2 10/31/18 05:25: White Blood Count 34.8*H, Red Blood Count 3.70L, Hemoglobin 11.0L, Hematocrit 34.9L, Mean Corpuscular Volume 94.3, Mean Corpuscular Hemoglobin 29.7, Mean Corpuscular Hemoglobin Concent 31.5L, Red Cell Distribution Width 14.9H, Platelet Count 400, Neutrophils # (Auto) , Monocytes # (Auto) , Nucleated Red Blood Cells % (auto) 0.0, Neutrophils 85H, Band Neutrophils 1, Lymphocytes (Manual) 5L, Monocytes (Manual) 7, Metamyelocytes 1H, Myelocytes 1H, Platelet Estimate NORMAL, Anisocytosis 1+, Anion Gap 9, Glomerular Filtration Rate 19.0L, Blood Urea Nitrogen 60H, Creatinine 3.40H, Sodium Level 141, Potassium Level 4.8, Chloride Level 114H, Carbon Dioxide Level 18L, Calcium Level 9.7, Magnesium Level 1.6L CBC/BMP Laboratory Tests 10/31/18 05:25 Red Blood Count 3.70 L, Mean Corpuscular Volume 94.3, Mean Corpuscular Hemoglobin 29.7, Mean Corpuscular Hemoglobin Concent 31.5 L, Red Cell Distribution Width 14.9 H, Neutrophils # (Auto) , Monocytes # (Auto) , Calcium Level 9.7 Microbiology Microbiology 10/21/18 Stool Occult Blood (BENJAMIN) - Final, Complete 10/29/18 Anaerobic Culture - Final, Complete 10/22/18 Anaerobic Culture - Final, Complete 10/29/18 Gram Stain - Final, Complete 10/29/18 Body Fluid Culture - Final, Complete 10/22/18 Gram Stain - Final, Complete 10/22/18 Body Fluid Culture - Final, Complete SALLIE GANT MD October 31, 2018 18:11
--- NOTE | 2018-10-31 18:43 | IPN ---
DATE: 10/31/2018 Mr. Lang seems to be doing fairly well except for his leukocytosis. He has had no fever or chills. No nausea, vomiting or diarrhea. His appetite is good. He had a caregiver at the bedside at all times. They are questioning when he can go home. His only temperature was on 10/24, which was 100.1. PHYSICAL EXAMINATION: Temperature is 97.2, pulse 84, respirations 16, blood pressure 121/69, O2 sat 95% on room air. Heart: Normal S1, S2. No murmurs, rubs or gallops. Lungs are clear. No wheezes, rales or rhonchi. Abdomen is soft, nontender. Extremities: With contractures in a flexed position. No edema. Bilateral nephrostomy tubes. Right one with clear urine, left one bloody urine. Culture from the left kidney was negative aerobically and anaerobically. The right one also was negative. The only culture that was positive was on October 20 with Aerococcus. LABORATORY DATA White count is 34.8, hemoglobin 11, hematocrit 34.9, platelets 400. Sodium 141, potassium 4.8, chloride 114, bicarb 18, BUN 60, creatinine 3.4, glucose 124, calcium 9.7, magnesium 1.6, CRP 22. IMPRESSION 1. Urinary tract infection with Aerococcus. The patient has received cefepime, now ampicillin with still persistent leukocytosis. 2. High-grade urothelial cancer, status post transurethral resection of the bladder tumor with bilateral hydronephrosis requiring bilateral nephrostomy tubes. Will obtain a repeat UA, urine culture to make sure there is no evidence of infection. 3. Leukocytosis, could be related to malignancy. PLAN Will discuss the case with urology for further management. May also consider obtaining consultation with oncology.
[2018-10-31 20:00] VITALS: BP 137/78
[2018-10-31] MEDS: ATORVASTATIN 20 MG TAB PO SCH (20:29)
--- NOTE | 2018-10-31 20:51 | REP ---
Clinical: Leukocytosis. Technique: Axial noncontrast images from the lung bases to the pubic symphysis with coronal and sagittal re-formations. Comparison: 10/25/2018. Findings: Small pleural effusions and bibasilar atelectasis are again noted and appears slightly improved. Innumerable small pulmonary nodules are identified and consistent with metastatic disease which were in part poorly identified on prior examination due to the larger effusions/areas of atelectasis and pulmonary vascular prominence. Subtle hypodense liver lesions are identified on current examination which were not visible on prior examination due to subtle differences in technique and are most concerning for metastatic disease. Spleen, pancreas, collapsed gallbladder, and bilateral adrenal glands are normal. The patient is status post bilateral percutaneous nephrostomies in satisfactory position and there is no evidence for hydronephrosis. Obstructing lesion in the mid/distal left ureter (image 94) is again suggested. The enteric system is without obstruction or acute inflammatory process. Scattered diverticula noted without acute diverticulitis. Pelvis again includes a large complex mass in the right ruperto pelvis which is inseparable from the collapsed irregular bladder (known bladder carcinoma) and prostate gland all of which appear relatively stable. Surrounding fat stranding and small scattered lymph nodes are unchanged. There is no evidence for ascites or drainable collection/abscess. Scattered lymph nodes are unchanged. No free air. Musculoskeletal structures demonstrate degenerative changes without focal osseous abnormality. Impression: 1. Previous pleural effusions and bibasilar atelectasis as well as pulmonary vascular congestion has improved and innumerable bilateral pulmonary nodules measuring up to 10 mm are now identified consistent with metastatic disease unless proven otherwise. 2. Bilateral percutaneous nephrostomies with near complete resolution of the hydroureteronephrosis. Small obstructing neoplasm in the left mid/distal ureter is again noted and a large complex mass involving the bladder and right ruperto pelvis as well as possible invasion to the prostate gland remains stable. 3. The current examination now illustrated very subtle vague scattered hepatic hypodensities consistent with metastatic disease unless proven otherwise including area in the periphery of the anterior right lobe measuring roughly 3 cm. 4. No ascites or drainable collection/abscess. 5. Further chronic changes as above. Electronically Signed by Wellington Burnett MD 10/31/2018 08:43 P
--- NOTE | 2018-10-31 21:08 | IPN ---
DATE: 10/31/2018 SUBJECTIVE: The patient was seen and examined at the bedside today morning. He is baseline nonverbal, otherwise in no acute distress. Volume status is optimal, renal function continues to improve. Creatinine is down to 3.4. He is unable to provide any review of systems. OBJECTIVE: Vital signs: Temperature is 97.2 degrees Fahrenheit, blood pressure 141/69, pulse is 82, respiratory rate of 18, saturating 97% on room air. Intake and output: Urine output recorded from left nephrostomy is 550 mL, right nephrostomy 475 mL. Weight on the bed scale is 60.7 kg. PHYSICAL EXAMINATION: General: The patient is awake, nonverbal, laying in bed, in no apparent distress. Head and Neck Exam: Patient is legally blind. Mucous membranes are moist. Neck is supple. There is no jugular venous distention (JVD). Cardiovascular: S1, S2, regular rate. No edema of the bilateral lower extremities. Respiratory: Chest is clear to auscultation bilaterally. Bilateral equal air entry. No rales or rhonchi. Abdomen: Soft. Positive bowel sounds. Nontender. Musculoskeletal: No clubbing or cyanosis. Pulses are 2+. Central Nervous System (COLON THERAPIST): The patient is deaf mute and blind; otherwise he moves extremities but he cannot communicate. LAB REVIEW: CBC showed a WBC of 34.8, hemoglobin is 11, platelets are 400. BMP showed sodium 141, potassium 4.8, chloride 114, bicarbonate is 18, BUN 60, creatinine is 3.4, calcium 9.7, magnesium 1.6. Microbiology: Cultures are negative so far. IMAGING: A CAT scan of the abdomen and pelvis was done. Official report is pending. CURRENT INPATIENT MEDICATIONS: The patient's medications were all reviewed by me. He continues to be on IV Omnipen. I have changed the IV fluid to D5W with sodium bicarbonate at 60 mL an hour. No other change in the medications today as compared with yesterday. ASSESSMENT/PLAN: 1. Acute nonoliguric renal failure. The patient now has bilateral percutaneous nephrostomy secondary to hydroureteronephrosis. Renal function continues to improve. Continue the IV fluid hydration. 2. Normal anion gap metabolic acidosis. The patient has been started on IV bicarbonate containing fluids. 3. Leukocytosis. The patient got a CAT scan of the abdomen and pelvis. Infectious disease is seeing the patient. The patient continues to be on IV Omnipen. 4. Postobstructive diuresis. It has resolved now. Urine output from both nephrostomy tubes is within the acceptable range. 5. High-grade urothelial cancer. The patient is status post transurethral resection of bladder tumor. The rest of the management is as per urology recommendations.
[2018-10-31 23:59] VITALS: BP 153/83
[2018-11-01 04:00] VITALS: BP 142/79
[2018-11-01] MEDS: SODIUM BICARBONATE 50 MEQ in D5W 1,000 ML IV SCH (04:22)
[2018-11-01] MEDS: SLF 3 ML SYR IV SCH ×3 (04:23→22:55)
[2018-11-01 05:56] LABS: HEMATOCRIT 32.6 % (42.0-52.0); HEMOGLOBIN 10.6 g/dl (13.5-17.5); MEAN CORPUSCULAR HEMOGLOBIN 29.9 pg (27.0-33.0); MEAN CORPUSCULAR HGB CONC 32.5 g/dl (32.0-36.5); MEAN CORPUSCULAR VOLUME 92.1 fl (80.0-96.0); PLATELET COUNT, AUTOMATED 416 10^3/uL (150-450); RED BLOOD COUNT 3.54 10^6/uL (4.30-6.10)
[2018-11-01 06:26] LABS: CALCIUM LEVEL 9.7 MG/DL (8.8-10.2); CREATININE FOR GFR 2.85 MG/DL (0.70-1.30); GLOMERULAR FILTRATION RATE 23.3 (>42); MAGNESIUM LEVEL 1.7 MG/DL (1.8-2.4); POTASSIUM SERUM 4.5 MEQ/L (3.5-5.1)
[2018-11-01 06:27] LABS: EOSINOPHILS 4 % (0-5); LYMPHOCYTES 7 % (16-52); MONOCYTES 8 % (0-8); MYELOCYTES 2 % (0-0); NEUTROPHILS 78 % (35-75)
[2018-11-01 06:29] LABS: PLATELET ESTIMATE INCREASED (NORMAL)
[2018-11-01 08:03] VITALS: BP 118/72
--- NOTE | 2018-11-01 09:22 | NUR ---
Pt discharged from dysphagia tx this date as he is tolerating the safest and least restrictive diet w/ adequate PO intake. Recommend continue honey thick liquids and pureed solids by spoon, assist pt for upright positioning and for all intake. Based on clinical prognosis, progress in ST is not anticipated. Please contact TU[employer] STRAIGHTENER for re-evaluation if needed w/ changes in medical status. Addendum: 11/01/18 at 0925 by TEDDY MINAYA [facility] Amended: Links added.
[2018-11-01] MEDS: AMPICILLIN SOD 2 GM in D5W MINI-BAG PLUS 100 ML IV SCH (11:19)
[2018-11-01] MEDS: PANTOPRAZOLE 40MG INJ (PROTONIX) (C9113) IV SCH ×2 (11:20→20:35)
[2018-11-01] MEDS: DIVALPROEX SPRINKLE 125 MG CAP PO SCH ×2 (11:20→20:35)
[2018-11-01] MEDS: HEPARIN SOD (PORCINE) 5000 UNITS/ML VIAL SC SCH ×2 (11:20→20:36)
[2018-11-01] MEDS: ASPIRIN 81 MG ENTERIC TAB PO SCH (11:21)
[2018-11-01] MEDS: MULTIVITAMINS/MINERALS THERAP 1 TAB PO SCH (11:21)
[2018-11-01] MEDS: METOPROLOL SUCC *XL* 25MG TAB (TopROL *XL*) PO SCH (11:21)
[2018-11-01 11:46] VITALS: BP 130/75
--- NOTE | 2018-11-01 13:32 | IPNPDOC ---
Subjective Date Seen The patient was seen on 11/01/18. Subjective Chief Complaint/HPI Bilateral hydroureteronephrosis Events since last encounter The patient has mental retardation related to cerebral palsy and nonverbal at baseline and therefore unable to answer questions or provide history. Caregiver at bedside reports the patient did eat a little breakfast however has seemed more sleepy over the last 2-3 days compared to usual. Patient also seemed to have a temperature of 102F earlier this morning. General: Reports: ROS Unobtainable Objective Physical Examination General Exam: Positive: Other (sleeping in bed, seems a little more somnolent today compared to yesterday.) Eye Exam: Positive: Other Eye Symptoms (patient is legally blind) ENT Exam: Positive: Other ENT (patient did not open his mouth to let me examine it today) Chest Exam: Positive: Other (clear to auscultationno overt wheeze or distress.) Heart Exam: Positive: Other (S1, S2 heard, regular rhythm. No rubs or gallops) Abdomen Exam: Positive: Soft, Other (bilateral nephrostomy tubes in place. Right tubelight yellow urine. Left tubestill has some slightly blood-tinged urine.) Neuro Exam: Positive: Other (sleeping, did not arouse to touchseems more somnolent today) Assessment /Plan Assessment CT scan abdomen pelvis: Impression: 1. Previous pleural effusions and bibasilar atelectasis as well as pulmonary vascular congestion has improved and innumerable bilateral pulmonary nodules measuring up to 10 mm are now identified consistent with metastatic disease unless proven otherwise. 2. Bilateral percutaneous nephrostomies with near complete resolution of the hydroureteronephrosis. Small obstructing neoplasm in the left mid/distal ureter is again noted and a large complex mass involving the bladder and right ruperto pelvis as well as possible invasion to the prostate gland remains stable. 3. The current examination now illustrated very subtle vague scattered hepatic hypodensities consistent with metastatic disease unless proven otherwise including area in the periphery of the anterior right lobe measuring roughly 3 cm. 4. No ascites or drainable collection/abscess. 5. Further chronic changes as above. Complicated aerococcus urinary tract infection, PoA, in setting of bilateral hydroureteronephrosis status post bilateral nephrostomy tube placement, with worsening leukocytosis and high-grade fever earlier this morning -Blood cultures 10/20: Negative; Urine cultures 10/20: Aerococcus urinae; Culture from R kidney 10/22: Negative, culture from left kidney 10/29negative -Repeat urine cultures were sent yesterday -Chest x-ray and CT scan brain completed at [facility] negative for acute findings -Received 7 days of Cefepime after 2 days of ceftriaxone. Currently on Unasyn day 3 per ID recs -WBCs worse at 40,000 -Chest x-ray 10/28 showed right basilar atelectasis with small effusion -Abdomen pelvis CT as noted above - patient seems to have metastases to bilateral lungs and liver. Leukocytosis: -Management as noted above -Leukocytosis could be related to his underlying malignancy Acute non-oliguric renal failure suspect secondary to obstructive uropathy slight bilateral hydroureteronephrosis in setting of high-grade urothelial cancer: -History of CKD3 baseline creatinine about 1.4 -s/p R sided nephrostomy tube placement 10/22 and left nephrostomy tube placement 10/29 by IR -Patient was seen in consultation by nephrology as wellnephrology has signed off. -Creatinine improving - down to 2.85. Monitor. 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 Solis -CT scan abdomen pelvis concerning for metastases to bilateral lungs and liver- -Discussed with patient's sister Maddy was also his power of petroleum refinery laborer ([phone]), also updated Lisa PARKER. -Maddy reports she spoke with her sister and that they agree that patient's co mfort should be to focus at this time given his underlying cancer with possible lung and liver metastases as well as worsening leukocytosis and fever despite multiple rounds of IV antibiotics. She reports that at baseline the patient's quality of life is not good. Discussed with Lisa Castañeda will be coming in tomorrow plan is to get a MOLST form filled out with Maddy. Lisa reports that changing the CODE STATUS would have to be approved through the petroleum refinery laborer, therefore, the CODE STATUS will be maintained as a full code for now although, once this can be arranged through the petroleum refinery laborer, it will be changed to DNR/DNI per my discussion with Maddy. Hypernatremia -Resolved -On D5W IV fluids Hyperkalemia -Resolved Macrocytic anemia -?dilutional -s/p 2 units PRBC -Hgb remains stable Cerebral palsy with profound mental retardation HTN; s/p Hypertensive Crisis -Ct Metoprolol -Blood pressures have been controlled DLP - c/w Atorvastatin Neurogenic bladder - s/p Elmore Catheter Anxiety / Behavioral problems - c/w Divalproex Cataracts GERD - c/w Protonix DVT prophylaxis - c/w Heparin Plan/VTE VTE Prophylaxis Ordered?: Yes VS, I&O, 24H, Fishbone Vital Signs/I&O Vital Signs Date Time Temp Pulse Resp B/P (MAP) Pulse Ox O2 Delivery O2 Flow Rate FiO2 11/01/18 11:46 98.6 88 20 130/75 (93) 97 I&O- Last 24 Hours up to 6 AM 11/01/18 06:00 Intake Total 1460 ml Output Total 2145 ml Balance -685 ml Laboratory Data 24H LABS Laboratory Tests 2 10/31/18 20:16: Urine Color YELLOW, Urine Appearance CLEAR, Urine pH 6.0, Urine Specific [place] 1.008, Urine Protein 1+H, Urine Glucose (UA) 3+H, Urine Ketones NEGATIVE, Urine Blood 2+H, Urine Nitrite NEGATIVE, Urine Bilirubin NEGATIVE, Urine Urobilinogen 0.2, Urine Leukocyte Esterase TRACEH, Urine WBC (Auto) 13H, Urine RBC (Auto) 87H, Urine Hyaline Casts (Auto) 0, Urine Bacteria (Auto) NEGATIVE, Urine Squamous Epithelial Cells 0, Urine Mucus (Auto) SMALL, Urine Sperm (Auto) 11/01/18 05:31: White Blood Count 40.0*H, Red Blood Count 3.54L, Hemoglobin 10.6L, Hematocrit 32.6L, Mean Corpuscular Volume 92.1, Mean Corpuscular Hemoglobin 29.9, Mean Corpuscular Hemoglobin Concent 32.5, Red Cell Distribution Width 14.6H, Platelet Count 416, Neutrophils # (Auto) , Monocytes # (Auto) , Nucleated Red Blood Cells % (auto) 0.0, Neutrophils 78H, Band Neutrophils 1, Lymphocytes (Manual) 7L, Monocytes (Manual) 8, Eosinophils (Manual) 4, Myelocytes 2H, Platelet Estimate INCREASED, Red Blood Cell Morphology NORMAL, Anion Gap 9, Glomerular Filtration Rate 23.3L, Blood Urea Nitrogen 53H, Creatinine 2.85H, Sodium Level 142, Potass ium Level 4.5, Chloride Level 110H, Carbon Dioxide Level 23, Calcium Level 9.7, Magnesium Level 1.7L CBC/BMP Laboratory Tests 11/01/18 05:31 Red Blood Count 3.54 L, Mean Corpuscular Volume 92.1, Mean Corpuscular Hemoglobin 29.9, Mean Corpuscular Hemoglobin Concent 32.5, Red Cell Distribution Width 14.6 H, Neutrophils # (Auto) , Monocytes # (Auto) , Calcium Level 9.7 Microbiology Microbiology 10/31/18 Urine Culture, Received Pending 10/31/18 Urine Culture, Received Pending 10/29/18 Anaerobic Culture - Final, Complete 10/22/18 Anaerobic Culture - Final, Complete 10/29/18 Gram Stain - Final, Complete 10/29/18 Body Fluid Culture - Final, Complete 10/22/18 Gram Stain - Final, Complete 10/22/18 Body Fluid Culture - Final, Complete SALLIE GANT MD November 01, 2018 13:32
[2018-11-01 16:00] VITALS: BP 107/63
--- NOTE | 2018-11-01 16:15 | IPN ---
DATE: 11/01/2018 Mr. Lang has remained stable, but his white count has increased to 40,000, hemoglobin 10.6, hematocrit 32.6, platelets 416, 78% neutrophils, 7% lymphocytes, 8% monocytes. Sodium 142, potassium 4.5, chloride 110, bicarbonate 23, BUN 53, creatinine 2.85, glucose 188, calcium 9.7, magnesium 1.7. Urine cultures from both ureters are pending. Urine cultures on 10/29/2018 from the left kidney, aerobic and anaerobic are negative and from the right kidney as well. CT abdomen and pelvis done on 10/31/2018 shows previous pleural effusion and pulmonary venous congestion improving, but innumerable bilateral pulmonary nodules measuring 10 mm each, bilateral percutaneous nephrostomy with complete resolution of hydroureteronephrosis, large complex mass involving the bladder and right hemipelvis and invasion into the prostate, also hepatic hypodensity consistent with metastatic disease. 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 The patient has not responded to broad-spectrum antibiotics including intravenous (IV) cefepime, Rocephin, and repeat cultures have been negative. PLAN: Discontinue IV ampicillin, and hospice care. MTDD
[2018-11-01 20:00] VITALS: BP 124/81
[2018-11-01] MEDS: ATORVASTATIN 20 MG TAB PO SCH (20:35)
[2018-11-01 20:50] VITALS: BP 125/75
[2018-11-01] MEDS: ACETAMINOPHEN TAB 650MG DOSE (2X325MG) PO PRN (23:48)
[2018-11-02] MEDS: ACETAMINOPHEN TAB 650MG DOSE (2X325MG) PO PRN ×3 (04:58→18:42)
[2018-11-02] MEDS: SLF 3 ML SYR IV SCH ×3 (04:58→21:00)
[2018-11-02 05:57] LABS: HEMATOCRIT 33.9 % (42.0-52.0); HEMOGLOBIN 10.9 g/dl (13.5-17.5); MEAN CORPUSCULAR HEMOGLOBIN 30.5 pg (27.0-33.0); MEAN CORPUSCULAR HGB CONC 32.2 g/dl (32.0-36.5); PLATELET COUNT, AUTOMATED 426 10^3/uL (150-450); RED BLOOD COUNT 3.57 10^6/uL (4.30-6.10)
[2018-11-02 06:00] VITALS: BP 111/56
[2018-11-02 06:17] LABS: CALCIUM LEVEL 9.6 MG/DL (8.8-10.2); CREATININE FOR GFR 2.4 MG/DL (0.70-1.30); GLOMERULAR FILTRATION RATE 28.4 (>42); MAGNESIUM LEVEL 1.7 MG/DL (1.8-2.4); POTASSIUM SERUM 4.5 MEQ/L (3.5-5.1)
[2018-11-02 07:23] LABS: ATYPICAL LYMPH 1 % (0-5); EOSINOPHILS 1 % (0-5); LYMPHOCYTES 3 % (16-52); MONOCYTES 3 % (0-8); NEUTROPHILS 90 % (35-75); PLATELET ESTIMATE NORMAL (NORMAL)
[2018-11-02 07:24] LABS: ANISOCYTOSIS 1+; POLYCHROMASIA 1+
[2018-11-02] MEDS ORDERED: MAG SULF 1GM/100ML (MAG RUN) 1 GM in APPROPRIATE DILUENT 1 EA IV ONE (07:45)
[2018-11-02] MEDS: MULTIVITAMINS/MINERALS THERAP 1 TAB PO SCH (10:24)
[2018-11-02] MEDS: HEPARIN SOD (PORCINE) 5000 UNITS/ML VIAL SC SCH ×2 (10:24→21:00)
[2018-11-02] MEDS: PANTOPRAZOLE 40MG INJ (PROTONIX) (C9113) IV SCH ×2 (10:24→21:00)
[2018-11-02] MEDS: ASPIRIN 81 MG ENTERIC TAB PO SCH (10:24)
[2018-11-02] MEDS: METOPROLOL SUCC *XL* 25MG TAB (TopROL *XL*) PO SCH (10:25)
[2018-11-02] MEDS: DIVALPROEX SPRINKLE 125 MG CAP PO SCH ×2 (12:00→20:59)
[2018-11-02 14:00] VITALS: BP 120/80
[2018-11-02] MEDS ORDERED: MORPHINE 4 MG/ML 1ML VIAL/SYRINGE (J2270) IV PRN (14:00)
--- NOTE | 2018-11-02 14:07 | IPNPDOC ---
Subjective Date Seen The patient was seen on 11/02/18. Subjective Chief Complaint/HPI Bilateral hydroureteronephrosis Events since last encounter The patient has mental retardation secondary to cerebral palsy and is nonverbal at baseline limiting any history from him. Caregiver at bedside reports that patient ate about 35% of his breakfast. No overnight fevers. General: Reports: ROS Unobtainable Objective Physical Examination General Exam: Positive: Other (sleeping in bed. Arousable.) Eye Exam: Positive: Other Eye Symptoms (patient is legally blind) ENT Exam: Positive: Other ENT (oral mucous membranes moist) Chest Exam: Positive: Other (clear to auscultation anteriorlyno overt wheeze or distress.) Heart Exam: Positive: Other (S1, S2 heard, regular rhythm. No rubs or gallops) Abdomen Exam: Positive: Soft, Other (bilateral nephrostomy tubes in place. Right tubelight yellow urine. Left tubevery slightly blood-tinged urine.) Neuro Exam: Positive: Other (sleeping, arousable, does a self.) Assessment /Plan Assessment Complicated aerococcus urinary tract infection, PoA, in setting of bilateral hydroureteronephrosis status post bilateral nephrostomy tube placement, with persistent significant leukocytosis: -Blood cultures 10/20: Negative; Urine cultures 10/20: Aerococcus urinae; Culture from R kidney 10/22: Negative, Culture from left kidney 10/29: negative -Repeat urine cultures 10/31: Negative -Chest x-ray and CT scan brain completed at [facility] negative for acute findings -Received 7 days of Cefepime after 2 days of ceftriaxone. Was thereafter on Unasyn - discontinued by ID yesterday -assistance CV leukocytosis seems to be related to patient's underlying malignancy rather than infection. -WBCs 38,000 -Chest x-ray 10/28 showed right basilar atelectasis with small effusion -Abdomen pelvis CT suggestive of multiple metastases to bilateral lungs and liver. Leukocytosis: -Leukocytosis likely related to his underlying malignancy -Off antibiotics Acute non-oliguric renal failure suspect secondary to obstructive uropathy slight bilateral hydroureteronephrosis in setting of high-grade urothelial cancer: -History of CKD3 baseline creatinine about 1.4 -s/p R sided nephrostomy tube placement 10/22 and left nephrostomy tube placement 10/29 by IR -Patient was seen in consultation by nephrology as wellnephrology has signed off. -Creatinine improving - down to 2.4. Monitor. 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 Solis -CT scan abdomen pelvis concerning for metastases to bilateral lungs and liver -Discussed with patient's sister Maddy was also his power of employee benefits attorney ([phone]), also updated Lisa RN 11/01 -Maddy had reported that she spoke with her sister and that they agree that patient's comfort should be to focus at this time given his underlying cancer with possible lung and liver metastases as well as worsening leukocytosis and fever despite multiple rounds of IV antibiotics. She reported that at baseline the patient's quality of life is not good. She will be coming in later today. Per my discussion with her, process was initiated for obtaining approval from state to change patient's CODE STATUS to DNR/DNI - upper laws obtained today and the CODE STATUS has been changed. We'll be filling out a MOLST form with Maddy once she is here. Hypernatremia -Resolved with D5W via IV fluids -Off same Hyperkalemia -Resolved Macrocytic anemia -?dilutional -s/p 2 units PRBC -Hgb remains stable Cerebral palsy with profound mental retardation HTN; s/p Hypertensive Crisis -Ct Metoprolol -Blood pressures have been controlled DLP - c/w Atorvastatin Neurogenic bladder - s/p Elmore Catheter Anxiety / Behavioral problems - c/w Divalproex Cataracts GERD - c/w Protonix DVT prophylaxis - c/w Heparin CODE STATUS: -Changed to DNR/DNI as noted above. MOLST will be filled with the patient's sister and power of employee benefits attorney Maddy once she is here Plan/VTE VTE Prophylaxis Ordered?: Yes VS, I&O, 24H, Fishbone Vital Signs/I&O Vital Signs Date Time Temp Pulse Resp B/P (MAP) Pulse Ox O2 Delivery O2 Flow Rate FiO2 11/02/18 10:25 67 111/56 11/02/18 06:00 97.1 15 96 I&O- Last 24 Hours up to 6 AM 11/02/18 06:00 Intake Total 1720 ml Output Total 2125 ml Balance -405 ml Laboratory Data 24H LABS Laboratory Tests 2 11/02/18 05:24: White Blood Count 38.0*H, Red Blood Count 3.57L, Hemoglobin 10.9L, Hematocrit 33.9L, Mean Corpuscular Volume 95.0, Mean Corpuscular Hemoglobin 30.5, Mean Corpuscular Hemoglobin Concent 32.2, Red Cell Distribution Width 14.5, Platelet Count 426, Neutrophils # (Auto) , Monocytes # (Auto) , Nucleated Red Blood Cells % (auto) 0.0, Neutrophils 90H, Band Neutrophils 2, Lymphocytes (Manual) 3L, Monocytes (Manual) 3, Eosinophils (Manual) 1, Atypical Lymphocytes 1, Platelet Estimate NORMAL, Polychromasia 1+, Anisocytosis 1+, Macrocytosis 1+, Anion Gap 9 , Glomerular Filtration Rate 28.4L, Blood Urea Nitrogen 50H, Creatinine 2.40H, Sodium Level 141, Potassium Level 4.5, Chloride Level 106, Carbon Dioxide Level 26, Calcium Level 9.6, Magnesium Level 1.7L CBC/BMP Laboratory Tests 11/02/18 05:24 Red Blood Count 3.57 L, Mean Corpuscular Volume 95.0, Mean Corpuscular Hemoglobin 30.5, Mean Corpuscular Hemoglobin Concent 32.2, Red Cell Distribution Width 14.5, Neutrophils # (Auto) , Monocytes # (Auto) , Calcium Level 9.6 Microbiology Microbiology 10/31/18 Urine Culture, Received Pending 10/31/18 Urine Culture - Final, Complete 10/29/18 Anaerobic Culture - Final, Complete 10/29/18 Gram Stain - Final, Complete 10/29/18 Body Fluid Culture - Final, Complete SALLIE GANT MD Nov 02, 2018 14:06
--- NOTE | 2018-11-02 14:40 | IPN ---
DATE: 11/01/2018 SUBJECTIVE: The patient was seen and examined at the bedside today, morning. The patient is awake, nonverbal, continues to be on intravenous (IV) fluids. Renal function continues to improve. Creatinine is down to 2.8 now. He has good urine output from bilateral percutaneous nephrostomy tubes. He is unable to provide any review of systems. OBJECTIVE: Vital signs: Temperature is 98.6 degrees Fahrenheit, blood pressure is 130/75, pulse is 88, respiratory rate of 20, saturating 97% on room air. Intake and output; Urine output recorded from the left-sided nephrostomy is 1100 mL and right-sided nephrostomy is 725 mL. Weight on the bed scale is 60.4 kg. PHYSICAL EXAMINATION: General: The patient is awake, nonverbal, laying in bed, in no apparent distress. Head and Neck Exam: He is legally blind. Mucous membranes are moist. Neck is supple. There is no jugular venous distention (JVD). Cardiovascular: S1, S2, regular rate. No edema of the bilateral lower extremities. Respiratory: Chest is clear to auscultation bilaterally. Bilateral equal air entry. No rales or rhonchi. Abdomen: Soft. Positive bowel sounds. He has bilateral percutaneous nephrostomies. Central Nervous System ([employer] [address] SQL DEVELOPER). The patient is deaf, mute and blind. Otherwise, he moves his extremities. LABORATORY REVIEW: CBC showed a WBC of 40, hemoglobin is 10.6, platelets are 416. BMP showed sodium 142, potassium 4.5, chloride 110, bicarbonate 23, BUN 53, creatinine is 2.8, it was 3.4 yesterday, magnesium 1.7. IMAGING STUDIES: A CT scan of the abdomen/pelvis was done yesterday, which showed pleural effusion, bibasilar atelectasis and pulmonary vascular congestion has improved. There are innumerable bilateral pulmonary nodules measuring up to 10 mm consistent with metastatic disease unless proven otherwise, and there were bilateral percutaneous nephrostomies, small obstructing neoplasm in the left mid and distal ureter, a large complex mass involving the bladder and right hemipelvis, as well as possible invasion of the prostate. Vague scattered hepatic hypodensities consistent with metastatic disease unless proven otherwise. No ascites or abscess or collection was noted. CURRENT INPATIENT MEDICATIONS: The patient's medications were all reviewed by me. His IV Omnipen has been stopped. He is on sodium bicarbonate IV fluid, which I am stopping at this point because his bicarbonate level has improved. ASSESSMENT/PLAN: 1. Acute nonoliguric renal failure. It was secondary to bilateral hydroureteronephrosis. The patient had bilateral percutaneous nephrostomies. He is having good urine output. Renal function continues to improve. I am stopping the IV fluids now. Continue to encourage oral hydration. 2. Normal anion gap metabolic acidosis. Acidosis has improved with the IV bicarbonate fluids; bicarbonate level is 23. IV fluids are being stopped now. 3. Leukocytosis. It is secondary to metastatic urothelial cancer. No cultures are positive, and there was no abscess found on the CT scan of the abdomen and pelvis. 4. High-grade urothelial cancer. The patient has metastatic cancer, which has metastasized to the abdominal organs and to the lungs as well. He has received bilateral percutaneous nephrostomies for drainage. Given the patient's comorbidities, he overall has a poor prognosis. Patient's renal function is improving. He has a good urine output. I am stopping the IV fluid. Nephrology service is going to sign off at this moment. Please call nephrology service for any help in the management of this patient during this hospitalization. The patient is terminally ill. Overall, he has a very poor prognosis.
[2018-11-02] MEDS: ATORVASTATIN 20 MG TAB PO SCH (20:59)
[2018-11-02 22:00] VITALS: BP 139/78
[2018-11-03] MEDS: ACETAMINOPHEN TAB 650MG DOSE (2X325MG) PO PRN ×2 (04:35→10:15)
[2018-11-03] MEDS: SLF 3 ML SYR IV SCH ×3 (05:41→21:23)
[2018-11-03 06:00] VITALS: BP 141/85
[2018-11-03 06:08] LABS: HEMATOCRIT 35.7 % (42.0-52.0); HEMOGLOBIN 11.2 g/dl (13.5-17.5); MEAN CORPUSCULAR HEMOGLOBIN 30.1 pg (27.0-33.0); MEAN CORPUSCULAR HGB CONC 31.4 g/dl (32.0-36.5); PLATELET COUNT, AUTOMATED 482 10^3/uL (150-450); RED BLOOD COUNT 3.72 10^6/uL (4.30-6.10)
[2018-11-03 06:16] LABS: WHITE BLOOD COUNT 43.2 10^3/uL (4.0-10.0)
[2018-11-03 06:35] LABS: CALCIUM LEVEL 9.5 MG/DL (8.8-10.2); CREATININE FOR GFR 2.81 MG/DL (0.70-1.30); GLOMERULAR FILTRATION RATE 23.7 (>42); MAGNESIUM LEVEL 2.3 MG/DL (1.8-2.4)
[2018-11-03 07:29] LABS: ATYPICAL LYMPH 1 % (0-5); EOSINOPHILS 1 % (0-5); LYMPHOCYTES 6 % (16-52); MONOCYTES 2 % (0-8); MYELOCYTES 1 % (0-0); NEUTROPHILS 88 % (35-75); PLATELET ESTIMATE INCREASED (NORMAL)
[2018-11-03 07:30] LABS: ANISOCYTOSIS 1+
[2018-11-03] MEDS: PANTOPRAZOLE 40MG INJ (PROTONIX) (C9113) IV SCH ×2 (10:13→21:17)
[2018-11-03] MEDS: ASPIRIN 81 MG ENTERIC TAB PO SCH (10:14)
[2018-11-03] MEDS: MULTIVITAMINS/MINERALS THERAP 1 TAB PO SCH (10:14)
[2018-11-03] MEDS: METOPROLOL SUCC *XL* 25MG TAB (TopROL *XL*) PO SCH (10:14)
[2018-11-03] MEDS: HEPARIN SOD (PORCINE) 5000 UNITS/ML VIAL SC SCH ×2 (10:14→21:17)
[2018-11-03] MEDS: DIVALPROEX SPRINKLE 125 MG CAP PO SCH ×2 (10:15→21:22)
[2018-11-03] MEDS: NS 0.45% 1,000 ML IV SCH (12:34)
[2018-11-03 14:00] VITALS: BP 138/83
--- NOTE | 2018-11-03 15:56 | IPNPDOC ---
Subjective Date Seen The patient was seen on 11/03/18. Subjective Chief Complaint/HPI Bilateral hydroureteronephrosis Events since last encounter The patient seems a little more alert this morning. Caregiver at bedside reports that the patient ate a little better and drank some fluids as well. The patient himself has baseline cerebral palsy and mental retardation and does not communicate therefore review of systems is limited. General: Reports: ROS Unobtainable Objective Physical Examination General Exam: Positive: Alert, No Acute Distress Eye Exam: Positive: Other Eye Symptoms (patient is legally blind) ENT Exam: Positive: Other ENT (oral mucous membranes moist) Chest Exam: Positive: Other (clear to auscultation anteriorlyno overt wheeze or distress.) Heart Exam: Positive: Other (S1, S2 heard, regular rate and rhythm. No rubs or gallops) Abdomen Exam: Positive: Soft, Other (bilateral nephrostomy tubes in place. Ligh t yellow urine in both tubes) Neuro Exam: Positive: Other (alert, unable to answer questions or follow commands.) Assessment /Plan Assessment Complicated aerococcus urinary tract infection, PoA, in setting of bilateral hydroureteronephrosis status post bilateral nephrostomy tube placement, with persistent significant leukocytosis: -Blood cultures 10/20: Negative; Urine cultures 10/20: Aerococcus urinae; Culture from R kidney 10/22: Negative, Culture from left kidney 10/29: negative -Repeat urine cultures 10/31: Negative -Chest x-ray and CT scan brain completed at [facility] negative for acute findings -Received 7 days of Cefepime after 2 days of ceftriaxone. Was thereafter on Unasyn - discontinued by ID - leukocytosis seems to be related to patient's underlying malignancy rather than infection. -WBCs 43,000 -Chest x-ray 10/28 showed right basilar atelectasis with small effusion -Abdomen pelvis CT suggestive of multiple metastases to bilateral lungs and liver. Leukocytosis: -Leukocytosis likely related to his underlying malignancy -Off antibiotics Acute non-oliguric renal failure suspect secondary to obstructive uropathy slight bilateral hydroureteronephrosis in setting of high-grade urothelial cancer: -History of CKD3 baseline creatinine about 1.4 -s/p R sided nephrostomy tube placement 10/22 and left nephrostomy tube placement 10/29 by IR -Patient was seen in consultation by nephrology as well -IV fluids were discontinued yesterday, however creatinine was up today and IVs fluids were restarted per nephrology recommendations. -Creatinine 2.81 today from 2.4 yesterday. Monitor. 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 Solis -CT scan abdomen pelvis concerning for metastases to bilateral lungs and liver -Discussed with patient's sisters Maddy (who is his power of privacy attorney) as well as Kaela -MOLST form filled out with family at bedside - they wish to focus on keeping Teddy comfortable and are interested in hospice evaluation. MOLST filled out with comfort measures only. Will need to verify with SW tomorrow as regards if this would require approval from state. Ct usual medical Rx for now. Hypernatremia -Resolved with D5W via IV fluids -Ordered half normal saline today Hyperkalemia -Resolved Macrocytic anemia -?dilutional -s/p 2 units PRBC -Hgb remains stable Cerebral palsy with profound mental retardation HTN; s/p Hypertensive Crisis -Ct Metoprolol -Blood pressures have been controlled DLP - c/w Atorvastatin Neurogenic bladder - s/p Elmore Catheter Anxiety / Behavioral problems - c/w Divalproex Cataracts GERD - c/w Protonix DVT prophylaxis - c/w Heparin Disposition: As noted, new MOLST form was filled out with his power of privacy attorney/sister Maddy. We will need to check with socially responsible investment adviser tomorrow to see if this would need to be approved through the state prior to implementation of the same. Continue IV fluids and medical treatment as noted above until then. Once approved, plan will be for hospice referral and possibly for patient to go back to his facility with home hospice. Plan/VTE VTE Prophylaxis Ordered?: Yes VS, I&O, 24H, Fishbone Vital Signs/I&O Vital Signs Date Time Temp Pulse Resp B/P (MAP) Pulse Ox O2 Delivery O2 Flow Rate FiO2 11/03/18 10:14 119 141/85 11/03/18 06:00 98.2 19 95 I&O- Last 24 Hours up to 6 AM 11/03/18 06:00 Intake Total 270 ml Output Total 1325 ml Balance -1055 ml Laboratory Data 24H LABS Laboratory Tests 2 11/03/18 05:31: White Blood Count 43.2*H, Red Blood Count 3.72L, Hemoglobin 11.2L, Hematocrit 35.7L, Mean Corpuscular Volume 96.0, Mean Corpuscular Hemoglobin 30.1, Mean Corpuscular Hemoglobin Concent 31.4L, Red Cell Distribution Width 14.7H, Platelet Count 482H, Neutrophils # (Auto) , Monocytes # (Auto) , Nucleated Red Blood Cells % (auto) 0.0, Neutrophils 88H, Band Neutrophils 1, Lymphocytes (Manual) 6L, Monocytes (Manual) 2, Eosinophils (Manual) 1, Myelocytes 1H, Atypical Lymphocytes 1, Platelet Estimate INCREASED, Anisocytosis 1+, Macrocytosis 1+, Anion Gap 8, Glomerular Filtration Rate 23.7L, Blood Urea Nitr ogen 61H, Creatinine 2.81H, Sodium Level 145, Potassium Level 5.0, Chloride Level 112H, Carbon Dioxide Level 25, Calcium Level 9.5, Magnesium Level 2.3 CBC/BMP Laboratory Tests 11/03/18 05:31 Red Blood Count 3.72 L, Mean Corpuscular Volume 96.0, Mean Corpuscular Hemoglobin 30.1, Mean Corpuscular Hemoglobin Concent 31.4 L, Red Cell Distribution Width 14.7 H, Neutrophils # (Auto) , Monocytes # (Auto) , Calcium Level 9.5 Microbiology Microbiology 10/31/18 Urine Culture - Final, Complete 10/31/18 Urine Culture - Final, Complete 10/29/18 Anaerobic Culture - Final, Complete 10/29/18 Gram Stain - Final, Complete 10/29/18 Body Fluid Culture - Final, Complete SALLIE GANT MD Nov 03, 2018 13:53
[2018-11-03] MEDS: ATORVASTATIN 20 MG TAB PO SCH (21:16)
[2018-11-03 22:00] VITALS: BP 133/76
[2018-11-04] MEDS: SLF 3 ML SYR IV SCH ×3 (05:33→22:39)
[2018-11-04] MEDS: NS 0.45% 1,000 ML IV SCH ×2 (05:34→20:31)
[2018-11-04 06:00] VITALS: BP 141/80
[2018-11-04 06:28] LABS: HEMATOCRIT 33.8 % (42.0-52.0); HEMOGLOBIN 10.6 g/dl (13.5-17.5); MEAN CORPUSCULAR HEMOGLOBIN 29.4 pg (27.0-33.0); MEAN CORPUSCULAR HGB CONC 31.4 g/dl (32.0-36.5); MEAN CORPUSCULAR VOLUME 93.9 fl (80.0-96.0); PLATELET COUNT, AUTOMATED 476 10^3/uL (150-450)
[2018-11-04 06:34] LABS: WHITE BLOOD COUNT 43.1 10^3/uL (4.0-10.0)
[2018-11-04 06:47] LABS: CALCIUM LEVEL 9.8 MG/DL (8.8-10.2); CREATININE FOR GFR 2.34 MG/DL (0.70-1.30); GLOMERULAR FILTRATION RATE 29.2 (>42); MAGNESIUM LEVEL 1.9 MG/DL (1.8-2.4)
[2018-11-04 07:00] LABS: LYMPHOCYTES 4 % (16-52); MONOCYTES 4 % (0-8); NEUTROPHILS 92 % (35-75); PLATELET ESTIMATE NORMAL (NORMAL)
[2018-11-04 07:01] LABS: ANISOCYTOSIS 1+
[2018-11-04] MEDS: MULTIVITAMINS/MINERALS THERAP 1 TAB PO SCH (08:14)
[2018-11-04] MEDS: DIVALPROEX SPRINKLE 125 MG CAP PO SCH ×2 (08:14→20:31)
[2018-11-04] MEDS: ASPIRIN 81 MG ENTERIC TAB PO SCH (08:14)
[2018-11-04] MEDS: HEPARIN SOD (PORCINE) 5000 UNITS/ML VIAL SC SCH ×2 (08:17→20:31)
[2018-11-04] MEDS: PANTOPRAZOLE 40MG INJ (PROTONIX) (C9113) IV SCH ×2 (08:17→20:31)
[2018-11-04] MEDS: METOPROLOL SUCC *XL* 25MG TAB (TopROL *XL*) PO SCH (08:17)
[2018-11-04] MEDS: ACETAMINOPHEN TAB 650MG DOSE (2X325MG) PO PRN ×2 (08:18→20:32)
--- NOTE | 2018-11-04 12:46 | IPNPDOC ---
Text Note Date of Service The patient was seen on 11/04/18. 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 Patient initially presented to the ER at [facility] ([facility]) because he was experiencing fevers and reported lethargy. Upon arrival at [facility] patient received imaging that revealed mass encasing the distal right ureter and lesions in the liver suspicious for metastatic disease. His lab work was also significant for renal failure with a Creatinine of >8.0. Patient was transferred over to [facility] where he was evaluated by urology. Patient was admitted to hospitalist service for further evaluation and treatment. Urology and nephrology were called on consultation. Patient was seen and examined at the bedside. Patient again appears calm but remains nonverbal and makes incomprehensible sounds. Objective: Vitals (See below) General: Comfortable appearing while lying in bed, awake / alert, makes incomprehensible sounds HEENT: normocephalic, atraumatic CVS: Fair b/l, no wheezing / rhonchi / rales Abdomen: Soft, non-distended, non-tender Back: R nephrostomy tube with dressing in place Extremities: No LE pitting edema, - Calf tenderness Imaging: - US abdomen 10/20: Mild to moderate bilateral hydronephrosis. There are no prior examinations for comparison. - CT abdomen / pelvis 10/20: 1. Thickened wall of the distal esophagus. Finding may be related to reflux esophagitis however an esophageal neoplasm should be excluded clinically. 2. There is diffuse pancreatic atrophy. 3. Elmore catheter demonstrated within a glass urinary bladder demonstrates marked thickening of the bladder wall and perivesicular inflammatory changes. Findings consistent wi th gross cystitis however neoplasm not excluded. In addition there is a right posterior lateral mass contiguous with the right side of the bladder which contains a small amount of air in overall dimensions of 5.1 x 4.4 x 5.5 cm. This may represent neoplasm within the large bladder diverticulum. 4. Bilateral moderate hydroureteronephrosis likely secondary to the above-described bladder findings and right posterolateral bladder mass. 5. Mild prostatic hyperplasia. 6. Circumferential thickening of the rectal wall which should be correlated with digital examination. - CT abdomen / pelvis 10/25: 1. Improved appearance to the right kidney and right hydronephrosis. Stable left hydronephrosis and hydroureter. Stable presumed malignant changes within the bladder, right ruperto pelvis and distal left ureter. 2. Small bilateral pleural effusions and bibasilar atelectasis represent new findings. 3. Remainder examination demonstrates chronic change. - CXR 10/28: Possible right basilar atelectasis and small pleural effusion. - CXR 10/30: Mild bibasilar atelectasis and small pleural effusions. - Ct Abdomen / Pelvis 10/31: 1. Previous pleural effusions and bibasilar atelectasis as well as pulmonary vascular congestion has improved and innumerable bilateral pulmonary nodules measuring up to 10 mm are now identified consistent with metastatic disease unless proven otherwise. 2. Bilateral p ercutaneous nephrostomies with near complete resolution of the hydroureteronephrosis. Small obstructing neoplasm in the left mid/distal ureter is again noted and a large complex mass involving the bladder and right ruperto pelvis as well as possible invasion to the prostate gland remains stable. 3. The current examination now illustrated very subtle vague scattered hepatic hypodensities consistent with metastatic disease unless proven otherwise including area in the periphery of the anterior right lobe measuring roughly 3 cm. 4. No ascites or drainable collection/abscess.5. Further chronic changes as above. Assessment and plan: Complicated urinary tract infection from Aerococcus urinae; in setting of bilateral hydroureteronephrosis status post bilateral nephrostomy tube placement, with persistent significant leukocytosis: - Patient was found to have fever and was experiencing lethargy at [facility] - Upon arrival to the emergency room [facility] patient was found to be febrile; while inpatient he experienced low-grade temperatures - Risk factors: Urinary retention initially; and now with indwelling nephrostomy tubes - Urine analysis there as well as here showed evidence of UTI - Blood cultures 10/20: Negative at 5 days; Urine cultures 10/20: Aerococcus urinae; Culture from R kidney 10/22: Negative - Chest x-ray and CT scan brain completed at [facility] have been negative for acute findings - s/p Antibiotic therapy; s/p Cefepime, s/p Ceftriaxone Leukocytosis - possibly 2/2 underlying malignancy - s/p antibiotic therapy s/p Acute non-oliguric renal failure - possibly 2/2 intrarenal etiology - pos sibly 2/2 ATN, possibly 2/2 post-renal etiology - 2/2 bilateral hydroureteronephrosis 2/2 high grade urothelial cancer - History of CKD3 - Patients baseline creatinine was noted to be approximately 1.4 - Physical, again does not reveal any significant for dialysis; no acute abnormalities or acid base dysfunction - No electrolyte abdomen is her acid base abnormalities to suggest urgent dialysis; creatinine has shown some improvement over last 24 hours - Patient has had a CT scan completed at [facility]; bilateral hydro-nephro ureter with soft tissue attenuation obstruction of the ureteral lumen seen in the mid ureter of the left suspicious for transitional cell carcinoma - Patient has had a Elmore catheter placed; s/p R sided nephrostomy tube placement 10/22 with IR and s/p L sided nephrostomy tube placement 10/29 - Nephrology and Urology on consultation Recent diagnosis of 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 Solis - Case was discussed extensively with family; they have agreed to make the patient DNR / DNR - has been approved by the state - Currently family plans are for BROOD HATCHERY MANAGER / Hospice; will look into approval from state s/p Hypomagnesemia Hypernatremia - Will increase amount of free water intake by PO s/p Hyperkalemia Normocytic anemia - Acute drop in hemoglobin - possibly 2/2 dilutional etiology - No evidence of bleeding; no evidence of acute blood loss - B12 levels and Folate levels wnl - Patient's family has indicated that he has a history of anemia and has received transfusions in the past - Received consent over phone with Maddy, the patient's sister - s/p 2 units PRBC - Hg remains stable Cerebral palsy with profound mental retardation HTN; s/p Hypertensive Crisis - BP moderately controlled - c/w Metoprolol DLP - c/w Atorvastatin Neurogenic bladder - s/p Elmore Catheter Anxiety / Behavioral problems - c/w Divalproex Cataracts Osteoporosis - c/w Vitamin D / Calcium supplementation GERD - c/w Protonix DVT prophylaxis - c/w Heparin Disposition: - PFS / Case management in discussion with family / state for approval of BROOD HATCHERY MANAGER Prognosis: - Poor / Guarded Family contact: - Maddy (Sister) [phone] - Joceline ([employer] [facility] [facility]) [phone] VS,Johan, I+O VS, [place], I+O Laboratory Tests 11/04/18 05:56 Red Blood Count 3.60 L, Mean Corpuscular Volume 93.9, Mean Corpuscular Hemoglobin 29.4, Mean Corpuscular Hemoglobin Concent 31.4 L, Red Cell Distribution Width 14.8 H, Neutrophils # (Auto) , Monocytes # (Auto) , Calcium Level 9.8 Vital Signs Date Time Temp Pulse Resp B/P (MAP) Pulse Ox O2 Delivery O2 Flow Rate FiO2 11/04/18 08:17 68 136/82 11/04/18 06:00 99.1 21 94 I&O- Last 24 Hours up to 6 AM 11/04/18 06:00 Intake Total 1360 ml Output Total 1785 ml Balance -425 ml ZOHRA MERCADO MD Nov 04, 2018 12:46
[2018-11-04 14:00] VITALS: BP 124/76
[2018-11-04] MEDS: ATORVASTATIN 20 MG TAB PO SCH (20:31)
[2018-11-04 22:00] VITALS: BP 149/83
[2018-11-05] MEDS: SLF 3 ML SYR IV SCH ×3 (05:18→22:37)
[2018-11-05 06:00] VITALS: BP 163/84
[2018-11-05 08:19] LABS: BASO # 0.1 10^3/uL (0.0-0.2); BASO % 0.3 % (0.0-1.0); EOS # 0.6 10^3/uL (0.0-0.50); EOS % 1.4 % (0.0-3.0); HEMATOCRIT 35.8 % (42.0-52.0); HEMOGLOBIN 11.2 g/dl (13.5-17.5); LYMPH # 1.5 10^3/uL (1.5-4.5); LYMPH % 3.7 % (24.0-44.0); MEAN CORPUSCULAR HEMOGLOBIN 29.6 pg (27.0-33.0); MEAN CORPUSCULAR HGB CONC 31.3 g/dl (32.0-36.5); MEAN CORPUSCULAR VOLUME 94.7 fl (80.0-96.0); MONO # 1.7 10^3/uL (0.0-0.8); NEUTROPHILS % 89.5 % (36.0-66.0); PLATELET COUNT, AUTOMATED 477 10^3/uL (150-450); RED BLOOD COUNT 3.78 10^6/uL (4.30-6.10)
[2018-11-05] MEDS: PANTOPRAZOLE 40MG INJ (PROTONIX) (C9113) IV SCH ×2 (08:26→22:36)
[2018-11-05] MEDS: HEPARIN SOD (PORCINE) 5000 UNITS/ML VIAL SC SCH ×2 (08:26→22:36)
[2018-11-05] MEDS: MULTIVITAMINS/MINERALS THERAP 1 TAB PO SCH (08:27)
[2018-11-05] MEDS: METOPROLOL SUCC *XL* 25MG TAB (TopROL *XL*) PO SCH (08:27)
[2018-11-05] MEDS: ASPIRIN 81 MG ENTERIC TAB PO SCH (08:27)
[2018-11-05] MEDS: DIVALPROEX SPRINKLE 125 MG CAP PO SCH ×2 (08:27→22:36)
[2018-11-05 08:44] LABS: CALCIUM LEVEL 10.2 MG/DL (8.8-10.2); CREATININE FOR GFR 2.25 MG/DL (0.70-1.30); GLOMERULAR FILTRATION RATE 30.6 (>42); MAGNESIUM LEVEL 1.8 MG/DL (1.8-2.4); POTASSIUM SERUM 5.1 MEQ/L (3.5-5.1)
[2018-11-05 08:52] LABS: NEUTROPHILS # 36.9 10^3/uL (1.8-7.7)
[2018-11-05 08:53] LABS: WHITE BLOOD COUNT 41.3 10^3/uL (4.0-10.0)
[2018-11-05] MEDS: NS 0.45% 1,000 ML IV SCH (13:12)
[2018-11-05] MEDS: ACETAMINOPHEN TAB 650MG DOSE (2X325MG) PO PRN ×2 (13:44→22:37)
--- NOTE | 2018-11-05 13:52 | IPNPDOC ---
Text Note Date of Service The patient was seen on 11/05/18. 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 Patient initially presented to the ER at [facility] ([facility]) because he was experiencing fevers and reported lethargy. Upon arrival at [facility] patient received imaging that revealed mass encasing the distal right ureter and lesions in the liver suspicious for metastatic disease. His lab work was also significant for renal failure with a Creatinine of >8.0. Patient was transferred over to [facility] where he was evaluated by urology. Patient was admitted to hospitalist service for further evaluation and treatment. Urology and nephrology were called on consultation. Patient was seen and examined at the bedside. Objective: Vitals (See below) General: Comfortable appearing while lying in bed, does not appear in any acute distress, awake/alert, making incomprehensible sounds HEENT: normocephalic, atraumatic CVS: Fair b/l, no auscultated rhonchi, rales or wheezing Abdomen: Soft, remains nondistended and nontender Back: Bilateral nephrostomy tubes with dressing in place Extremities: No LE edema noted, - Calf tenderness Imaging: - US abdomen 10/20: Mild to moderate bilateral hydronephrosis. There are no prior examinations for comparison. - CT abdomen / pelvis 10/20: 1. Thickened wall of the distal esophagus. Finding may be related to reflux esophagitis however an esophageal neoplasm should be excluded clinically. 2. There is diffuse pancreatic atrophy. 3. Elmore catheter demonstrated within a glass urinary bladder demonstrates marked thickening of the bladder wall and perivesicular inflammatory changes. Findings consistent with gross cystitis however neoplasm not excluded. In addition there is a right posterior lateral mass contiguous with the right side of the bladder which contains a small amount of air in overall dimensions of 5.1 x 4.4 x 5.5 cm. This may represent neoplasm within the large bladder diverticulum. 4. Bilateral moderate hydroureteronephrosis likely secondary to the above-described bladder findings and right posterolateral bladder mass. 5. Mild prostatic hyperplasia. 6. Circumferential thickening of the rectal wall wh ich should be correlated with digital examination. - CT abdomen / pelvis 10/25: 1. Improved appearance to the right kidney and right hydronephrosis. Stable left hydronephrosis and hydroureter. Stable presumed malignant changes within the bladder, right ruperto pelvis and distal left ureter. 2. Small bilateral pleural effusions and bibasilar atelectasis represent new findings. 3. Remainder examination demonstrates chronic change. - CXR 10/28: Possible right basilar atelectasis and small pleural effusion. - CXR 10/30: Mild bibasilar atelectasis and small pleural effusions. - Ct Abdomen / Pelvis 10/31: 1. Previous pleural effusions and bibasilar atelectasis as well as pulmonary vascular congestion has improved and innumerable bilateral pulmonary nodules measuring up to 10 mm are now identified consistent with metastatic disease unless proven otherwise. 2. Bilateral percutaneous nephrostomies with near complete resolution of the hydroureteronephrosis. Small obstructing neoplasm in the left mid/distal ureter is again noted and a large complex mass involving the bladder and right ruperto pelvis as well as possible invasion to the prostate gland remains stable. 3. The current examination now illustrated very subtle vague scattered hepatic hypodensities consistent with metastatic disease unless proven otherwise including area in the periphery of the anterior right lobe measuring roughly 3 cm. 4. No ascites or drainable collection/abscess.5. Further chronic changes as above. Assessment and plan: Complicated urinary tract infection from Aerococcus urinae; in setting of bilateral hydroureteronephrosis status post bilateral nephrostomy tube placement, with persistent significant leukocytosis: - Patient was found to have fever and was experiencing lethargy at [facility] - Upon arrival to the emergency room [facility] patient was found to be febrile; while inpatient he experienced low-grade temperatures - Risk factors: Urinary retention initially; and now with indwelling nephrostomy tubes - Urine analysis there as well as here showed evidence of UTI - Blood cultures 10/20: Negative at 5 days; Urine cultures 10/20: Aerococcus urinae; Culture from R kidney 10/22: Negative - Chest x-ray and CT scan brain completed at [facility] have been negative for acute findings - s/p Antibiotic therapy; s/p Cefepime, s/p Ceftriaxone Leukocytosis - possibly 2/2 underlying malignancy - s/p antibiotic therapy - Infectious disease on consult s/p Acute non-oliguric renal failure - possibly 2/2 intrarenal etiology - possibly 2/2 ATN, possibly 2/2 post-renal etiology - 2/2 bilateral hydroureteronephrosis 2/2 high grade urothelial cancer - History of CKD3 - Patients baseline creatinine was noted to be approximately 1.4 - Physical, again does not reveal any significant for dialysis; no acute abnormalities or acid base dysfunction - No electrolyte abdomen is her acid base abnormalities to suggest urgent dialysis; creatinine has shown some improvement over last 24 hours - Patient has had a CT scan completed at [facility]; bilateral hydro-nephro ureter with soft tissue attenuation obstruction of the ureteral lumen seen in the mid ureter of the left suspicious for transitional cell carcinoma - Patient has had a Elmore catheter placed; s/p R sided nephrostomy tube placement 10/22 with IR and s/p L sided nephrostomy tube placement 10/29 - Nephrology and Urology on consultation Recent diagnosis of 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 Solis - Case was discussed extensively with family; they have agreed to make the patient DNR / DNR - has been approved by the state - Currently family plans are for NURSERY WORKER / Hospice; will look into approval from [facility] - I discussed with Maddy; family would like to pursue comfort measures working with case management and [facility] to complete appropriate documentation s/p Hypomagnesemia s/p Hypernatremia s/p Hyperkalemia Normocytic anemia - Acute drop in hemoglobin - possibly 2/2 dilutional etiology - No evidence of bleeding; no evidence of acute blood loss - B12 levels and Folate levels wnl - Patient's family has indicated that he has a history of anemia and has received transfusions in the past - Received consent over phone with Maddy, the patient's sister - s/p 2 units PRBC - Hg remains stable Cerebral palsy with profound mental retardation HTN; s/p Hypertensive Crisis - BP moderately controlled - c/w Metoprolol DLP - c/w Atorvastatin Neurogenic bladder - s/p Elmore Catheter Anxiety / Behavioral problems - c/w Divalproex Cataracts Osteoporosis - c/w Vitamin D / Calcium supplementation GERD - c/w Protonix DVT prophylaxis - c/w Heparin Disposition: - PFS / Case management in discussion with family / state for approval of NURSERY WORKER Code status: - DNR / DNI Prognosis: - Poor / Guarded Family contact: - Maddy (Sister) [phone] - Joceline ([employer] [facility] [facility]) [phone] VS,Fishbone, I+O VS, Fishbone, I+O Laboratory Tests 11/05/18 08:03 Red Blood Count 3.78 L, Mean Corpuscular Volume 94.7, Mean Corpuscular Hemoglobin 29.6, Mean Corpuscular Hemoglobin Concent 31.3 L, Red Cell Distribution Width 14.9 H, Neutrophils (%) (Auto) 89.5 H, Lymphocytes (%) (Auto) 3.7 L, Monocytes (%) (Auto) 4.0, Eosinophils (%) (Auto) 1.4, Basophils (%) (Auto) 0.3, Neutrophils # (Auto) 36.9 H, Lymphocytes # (Auto) 1.5, Monocytes # (Auto) 1.7 H, Eosinophils # (Auto) 0.6 H, Basophils # (Auto) 0.1, Calcium Level 10.2 Vital Signs Date Time Temp Pulse Resp B/P (MAP) Pulse Ox O2 Delivery O2 Flow Rate FiO2 11/05/18 08:27 79 132/84 11/05/18 06:00 98.7 16 96 I&O- Last 24 Hours up to 6 AM 11/05/18 06:00 Intake Total 2400 ml Output Total 1625 ml Balance 775 ml ZOHRA MERCADO MD Nov 05, 2018 13:52
[2018-11-05 14:00] VITALS: BP 117/76
--- NOTE | 2018-11-05 14:37 | REP ---
CHEST PORTABLE: AP portable view of the chest is performed and compared to a prior study of 10/30/2018. There is a nodule peripherally in the right upper lobe measuring about 1.5 cm in diameter. A nodular opacity projects in the left lung base, similar in size. No acute infiltrate is seen. There is poor ventilation. The heart is not significantly enlarged. There is mild bibasilar fibroatelectatic change. Electronically Signed by Carroll Alejo MD 11/07/2018 08:37 A
[2018-11-05] MEDS ORDERED: MEROPENEM INJ 1 GM in APPROPRIATE DILUENT 1 EA IV SCH (15:00)
[2018-11-05] MEDS ORDERED: MEROPENEM INJ 500 MG in APPROPRIATE DILUENT 1 EA IV SCH (15:00)
[2018-11-05 15:06] VITALS: BP 111/63
[2018-11-05 18:00] VITALS: BP 102/74
[2018-11-05 22:00] VITALS: BP 135/80
[2018-11-05] MEDS: ATORVASTATIN 20 MG TAB PO SCH (22:36)
[2018-11-06] MEDS: MEROPENEM INJ 500 MG in APPROPRIATE DILUENT 1 EA IV SCH ×2 (01:01→13:02)
[2018-11-06] MEDS: SLF 3 ML SYR IV SCH ×3 (05:47→22:20)
[2018-11-06 06:00] VITALS: BP 120/62
[2018-11-06 08:38] LABS: BASO # 0.1 10^3/uL (0.0-0.2); BASO % 0.4 % (0.0-1.0); EOS # 0.4 10^3/uL (0.0-0.50); EOS % 1.2 % (0.0-3.0); HEMATOCRIT 33.1 % (42.0-52.0); HEMOGLOBIN 10.5 g/dl (13.5-17.5); LYMPH % 5.4 % (24.0-44.0); MEAN CORPUSCULAR HEMOGLOBIN 30.4 pg (27.0-33.0); MEAN CORPUSCULAR HGB CONC 31.7 g/dl (32.0-36.5); MEAN CORPUSCULAR VOLUME 95.9 fl (80.0-96.0); MONO # 1.6 10^3/uL (0.0-0.8); MONO % 4.4 % (0.0-5.0); NEUTROPHILS % 87.7 % (36.0-66.0); PLATELET COUNT, AUTOMATED 421 10^3/uL (150-450); RED BLOOD COUNT 3.45 10^6/uL (4.30-6.10)
[2018-11-06 08:56] LABS: CALCIUM LEVEL 10.1 MG/DL (8.8-10.2); CREATININE FOR GFR 2.28 MG/DL (0.70-1.30); GLOMERULAR FILTRATION RATE 30.1 (>42); MAGNESIUM LEVEL 1.9 MG/DL (1.8-2.4); POTASSIUM SERUM 4.4 MEQ/L (3.5-5.1)
[2018-11-06 09:03] LABS: NEUTROPHILS # 31.8 10^3/uL (1.8-7.7)
[2018-11-06 09:04] LABS: WHITE BLOOD COUNT 36.2 10^3/uL (4.0-10.0)
[2018-11-06] MEDS: ASPIRIN 81 MG ENTERIC TAB PO SCH (09:34)
[2018-11-06] MEDS: MULTIVITAMINS/MINERALS THERAP 1 TAB PO SCH (09:34)
[2018-11-06 09:35] VITALS: BP 122/70
[2018-11-06] MEDS: METOPROLOL SUCC *XL* 25MG TAB (TopROL *XL*) PO SCH (09:35)
[2018-11-06] MEDS: HEPARIN SOD (PORCINE) 5000 UNITS/ML VIAL SC SCH (09:35)
[2018-11-06] MEDS: PANTOPRAZOLE 40MG INJ (PROTONIX) (C9113) IV SCH (09:35)
[2018-11-06] MEDS: DIVALPROEX SPRINKLE 125 MG CAP PO SCH ×2 (09:35→22:17)
--- NOTE | 2018-11-06 11:18 | IPNPDOC ---
Text Note Date of Service The patient was seen on 11/06/18. 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 Patient initially presented to the ER at [facility] ([facility]) because he was experiencing fevers and reported lethargy. Upon arrival at [facility] patient received imaging that revealed mass encasing the distal right ureter and lesions in the liver suspicious for metastatic disease. His lab work was also significant for renal failure with a Creatinine of >8.0. Patient was transferred over to [facility] where he was evaluated by urology. Patient was admitted to hospitalist service for further evaluation and treatment. Urology and nephrology were called on consultation. Patient was seen and examined at the bedside. Patient again remains nonverbal. Yesterday, staff had indicated that he was less active, however this appears to have resolved. Staff had reported that this morning there was some bleeding and decreased flow noted on his right nephrostomy tube. Objective: Vitals (See below) General: Comfortable appearing while lying in bed, awake and alert and making incompressible sounds HEENT: normocephalic, atraumatic CVS: Fair b/l, no auscultated rhonchi, rales or wheezing Abdomen: Soft, nontender, nondistended Back: Bilateral nephrostomy tubes with dressing in place; remains intact; however, right side does appear to show some saturation. Urine Extremities: No LE edema noted, - Calf tenderness Imaging: - US abdomen 10/20: Mild to moderate bilateral hydronephrosis. There are no prior examinations for comparison. - CT abdomen / pelvis 10/20: 1. Thickened wall of the distal esophagus. Finding may be related to reflux esophagitis however an esophageal neoplasm should be excluded clinically. 2. There is diffuse pancreatic atrophy. 3. Elmore catheter demonstrated within a glass urinary bladder demonstrates marked thickening of the bladder wall and perivesicular inflammatory changes. Findings consistent with gross cystitis however neoplasm not excluded. In addition there is a right posterior lateral mass contiguous with the right side of the bladder which contains a small amount of air in overall dimensions of 5.1 x 4.4 x 5.5 cm. This may represent neoplasm within the large bladder diverticulum. 4. Bilateral moderate hydroureteronephrosis likely secondary to the above-described bladder findings and right posterolateral bladder mass. 5. Mild prostatic hyperplasia. 6. Circumferential thickening of the rectal wall which should be correlated with digital examination. - CT abdomen / pelvis 10/25: 1. Improved appearance to the right kidney and right hydronephrosis. Stable left hydronephrosis and hydroureter. Stable presumed malignant changes within the bladder, right ruperto pelvis and distal left ureter. 2. Small bilateral pleural effusions and bibasilar atelectasis represent new findings. 3. Remainder examination demonstrates chronic change. - CXR 10/28: Possible right basilar atelectasis and small pleural effusion. - CXR 10/30: Mild bibasilar atelectasis and small pleural effusions. - Ct Abdomen / Pelvis 10/31: 1. Previous pleural effusions and bibasilar atelectasis as well as pulmonary vascular congestion has improved and innumerable bilateral pulmonary nodules measuring up to 10 mm are now identified consistent with metastatic disease unless proven otherwise. 2. Bilateral percutaneous nephrostomies with near complete resolution of the hydroureteronephrosis. Small obstructing neoplasm in the left mid/distal ureter is again noted and a large complex mass involving the bladder and right ruperto pelvis as well as possible invasion to the prostate gland remains stable. 3. The current examination now illustrated very subtle vague scattered hepatic hypodensities consistent with metastatic disease unless proven otherwise including area in the periphery of the anterior right lobe measuring roughly 3 cm. 4. No ascites or drainable collection/abscess.5. Further chronic changes as above. - CXR 11/05: There is a nodule peripherally in the right upper lobe measuring about 1.5 cm in diameter. A nodular opacity projects in the left lung base, similar in size. No acute infiltrate is seen. There is poor ventilation. The heart is not significantly enlarged. There is mild bibasilar fibroatelectatic change. Assessment and plan: Complicated urinary tract infection from Aerococcus urinae; in setting of bilateral hydroureteronephrosis status post bilateral nephrostomy tube placeme nt, with persistent significant leukocytosis: - Patient was found to have fever and was experiencing lethargy at [facility] - Upon arrival to the emergency room [facility] patient was found to be febrile; while inpatient he experienced low-grade temperatures - Risk factors: Urinary retention initially; and now with indwelling nephrostomy tubes - Urine analysis there as well as here showed evidence of UTI - Blood cultures 10/20: Negative at 5 days; Urine cultures 10/20: Aerococcus urinae; Culture from R kidney 10/22: Negative - Chest x-ray and CT scan brain completed at [facility] have been negative for acute findings - Patient appears to have a malfunction of his R nephrostomy tube - Will get CT abdomen to evaluate nephrostomy tube placement; Evaluate by IR Leukocytosis - possibly 2/2 underlying malignancy, possibly 2/2 infection - possibly 2/2 intra-abdominal source - Patient is unable to provide any details on review of systems - Patient had spiked a fever yesterday of 101.3 - Remains hemodynamically stable - Leukocytosis has improved after starting meropenem - Was s/p antibiotic therapy; s/p Cefepime, s/p Ceftriaxone - Patient was started on Meropenem (Day #2) - Infectious disease on consult s/p Acute non-oliguric renal failure - possibly 2/2 intrarenal etiology - possibly 2/2 ATN, possibly 2/2 post-renal etiology - 2/2 bilateral hydroureteronephrosis 2/2 high grade urothelial cancer - History of CKD3 - Patients baseline creatinine was noted to be approximately 1.4 - Physical, again does not reveal any significant for dialysis; no acute abnormalities or acid base dysfunction - No electrolyte abdomen is her acid base abnormalities to suggest urgent dialysis; creatinine has shown some improvement over last 24 hours - Patient has had a CT scan completed at [facility]; bilateral hydro-nephro ureter with soft tissue attenuation obstruction of the ureteral lumen seen in the mid ureter of the left suspicious for transitional cell carcinoma - Patient has had a Elmore catheter placed; s/p R sided nephrostomy tube placement 10/22 with IR and s/p L sided nephrostomy tube placement 10/29 - Nephrology and Urology on consultation Recent diagnosis of 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 Solis - Case was discussed extensively with family; they have agreed to make the patient DNR / DNR - has been approved by the state - Currently family plans are for CONTRACTS INTERN / Hospice; will look into approval from [facility] - I discussed with Maddy; family would like to pursue comfort measures working with case management and [facility] to complete appropriate documentation s/p Hypomagnesemia s/p Hypernatremia s/p Hyperkalemia Normocytic anemia - Acute drop in hemoglobin - possibly 2/2 dilutional etiology - No evidence of bleeding; no evidence of acute blood loss - B12 levels and Folate levels wnl - Patient's family has indicated that he has a history of anemia and has received transfusions in the past - Received consent over phone with Maddy, the patient's sister - s/p 2 units PRBC - Hg remains stable Cerebral palsy with profound mental retardation HTN; s/p Hypertensive Crisis - BP moderately controlled - c/w Metoprolol DLP - c/w Atorvastatin Neurogenic bladder - s/p Elmore Catheter Anxiety / Behavioral problems - c/w Divalproex Cataracts Osteoporosis - c/w Vitamin D / Calcium supplementation GERD - c/w Protonix DVT prophylaxis - c/w Heparin Disposition: - PFS / Case management in discussion with family / state for approval of CONTRACTS INTERN Code status: - DNR / DNI Prognosis: - Poor / Guarded Family contact: - Maddy (Sister) [phone] - Joceline ([facility]) [phone] VS,Johan, I+O VS, Johan, I+O Laboratory Tests 11/06/18 08:15 Red Blood Count 3.45 L, Mean Corpuscular Volume 95.9, Mean Corpuscular Hemoglobin 30.4, Mean Corpuscular Hemoglobin Concent 31.7 L, Red Cell Distribution Width 14.8 H, Neutrophils (%) (Auto) 87.7 H, Lymphocytes (%) (Auto) 5.4 L, Monocytes (%) (Auto) 4.4, Eosinophils (%) (Auto) 1.2, Basophils (%) (Auto) 0.4, Neutrophils # (Auto) 31.8 H, Lymphocytes # (Auto) 2.0, Monocytes # (Auto) 1.6 H, Eosinophils # (Auto) 0.4, Basophils # (Auto) 0.1, Calcium Level 10.1 Vital Signs Date Time Temp Pulse Resp B/P (MAP) Pulse Ox O2 Delivery O2 Flow Rate FiO2 11/06/18 09:35 67 122/70 11/06/18 06:00 96.6 16 99 I&O- Last 24 Hours up to 6 AM 11/06/18 06:00 Intake Total 840 ml Output Total 1925 ml Balance -1085 ml ZOHRA MERCADO MD Nov 06, 2018 11:18
--- NOTE | 2018-11-06 12:53 | REP ---
CT ABDOMEN AND PELVIS WITHOUT CONTRAST: CT abdomen and pelvis performed without oral or IV contrast. Sagittal and coronal reconstruction images are performed. Comparison is made with a prior study of 10/31/2018. Once again, there are multiple bilateral pulmonary nodules visualized in the lung bases. There is again, some mild patchy atelectasis or infiltrate in the left posterior costophrenic sulcus with a tiny amount of pleural fluid. Nodular opacities are again seen throughout the liver. Spleen, adrenals, and pancreas are grossly unremarkable. A nephrostomy tube is again seen in the left renal collecting system. There is no left hydronephrosis. The previously noted right nephrostomy tube has been displaced laterally with the pigtail now seen in a subcapsular location in the mid right renal parenchyma. There is moderate right hydroureteronephrosis. Urinary bladder is collapsed. The prostate is enlarged. The previously noted right pelvic mass appears unchanged. No definite bowel abnormality is seen. There is no free air or free fluid. IMPRESSION: Right nephrostomy tube has been displaced laterally compared to the prior CT of 10/31/2018. The pigtail now lies in a subcortical location in the mid right kidney. There is recurrent moderate right hydroureteronephrosis. Patient will be scheduled for replacement of the right nephrostomy tube. Once again, there are multiple bilateral pulmonary nodules present. Mild left base atelectasis/infiltrate again seen with a tiny amount of left pleural fluid. Multiple liver nodules again seen as well as large right pelvic mass. Electronically Signed by Carroll Alejo MD 11/07/2018 09:01 A
[2018-11-06 14:00] VITALS: BP 127/78
[2018-11-06] MEDS ORDERED: LORazepam 2 MG/ML VIAL (J2060) IV PRN (16:15)
[2018-11-06] MEDS ORDERED: SCOPOLAMINE 1MG TRANSDERMAL PATCH TOP PRN (16:15)
[2018-11-06] MEDS: ACETAMINOPHEN TAB 650MG DOSE (2X325MG) PO PRN (22:18)
[2018-11-07] MEDS: SLF 3 ML SYR IV SCH ×2 (05:17→13:56)
[2018-11-07] MEDS: DIVALPROEX SPRINKLE 125 MG CAP PO SCH (09:00)
[2018-11-07] MEDS ORDERED: MORP20SO3 PO (10:43)
[2018-11-07] MEDS ORDERED: HYOS125TA PO (10:43)
[2018-11-07] MEDS ORDERED: LORA0.5T11 PO (10:43)
--- NOTE | 2018-11-07 12:19 | DS.PDOC ---
Discharge Summary General Date of Admission October 20, 2018 at 13:24 Date of Discharge 11/07/2018 Discharge Summary PROCEDURES PERFORMED DURING STAY: 10/22/2018 - R nephrostomy tube placement by IR 10/29/2018 - L nephrostomy tube placement by IR ADMITTING DIAGNOSES / DISCHARGE DIAGNOSES: Complicated urinary tract infection from Aerococcus urinae; in setting of bilateral hydroureteronephrosis status post bilateral nephrostomy tube placement, with persistent significant leukocytosis: Leukocytosis - possibly 2/2 underlying malignancy, possibly 2/2 infection - possibly 2/2 intra-abdominal source s/p Acute non-oliguric renal failure - possibly 2/2 intrarenal etiology - possi ranjan 2/2 ATN, possibly 2/2 post-renal etiology - 2/2 bilateral hydroureteronephrosis 2/2 high grade urothelial cancer Recent diagnosis of 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 with CT scan concerning for multiple metastases to bilateral lungs and liver s/p Hypomagnesemia s/p Hypernatremia s/p Hyperkalemia Normocytic anemia Cerebral palsy with profound mental retardation HTN; s/p Hypertensive Crisis DLP Neurogenic bladder Anxiety / Behavioral problems Cataracts Osteoporosis GERD DVT prophylaxis COMPLICATIONS/CHIEF COMPLAINT: Found to have acute renal failure HISTORY OF PRESENT ILLNESS: Patient is a 72-year-old male with a PMHx of Cerebral palsy with profound mental retardation, HTN, DLP Neurogenic bladder, Anxiety / Behavioral problems, Cataracts, Osteoporosis, and GERD and a recent diagnosis of 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 Patient initially presented to the ER at [facility] ([facility]) because he was experiencing fevers and reported lethargy. Upon arrival at [facility] patient received imaging that revealed mass encasing the distal right ureter and lesions in the liver suspicious for metastatic disease. His lab work was also significant for renal failure with a Creatinine of >8.0. Patient was transferred over to [facility] where he was evaluated by urology. Patient was admitted to hospitalist service for further evaluation and treatment. Urology and nephrology were called on consultation. HOSPITAL COURSE: Patient was admitted to the hospital for acute renal failure and suspected urinary tract infection. He is placed on broad-spectrum antibiotics and his urine cultures were shown to grow Aerococcus urinae. Patient also had a recent diagnosis of urothelial cancer. Imaging had showed that he had bilateral hydroureteronephrosis. Patient had bilateral nephrolithiasis completed which had improvement in his renal function. However, subsequent imaging had showed diffuse metastatic spread of his cancer. Ultimately decision was made by family, sister, Maddy for the patient to be made comfort measures and not to pursue any aggressive intervention. Since patient has a medical history of cerebral palsy and mental retardation [facility] was involved to finalize documentation in regard to completing a MOLST form. [facility] approved comfort measures on 11/06/2018 and patient was transitioned. Nonessential medications were discontinued medications for pain and discomfort alone were instituted. Patient subsequently developed a dysfunction of his right nephrostomy tube. Again discussed with sister who advised to remove the nephrostomy tube and to not pursue placement as she would not want him to be subjected to another procedure at this time. DISCHARGE MEDICATIONS: Please see below. ALLERGIES: Please see below. PHYSICAL EXAMINATION ON DISCHARGE: Vitals (See below) General: Comfortable appearing while lying in bed, awake and alert and making incompressible sounds HEENT: NC, AT CVS: Fair b/l, no discernible rhonchi / rales / wheezing Abdomen: Soft, ND, NT Back: Bilateral nephrostomy tubes with dressing in place; remains intact - will have R side removed prior to discharge Extremities: No LE edema noted, - Calf tenderness LABORATORY DATA: Please see below. IMAGING: - US abdomen 10/20: Mild to moderate bilateral hydronephrosis. There are no prior examinations for comparison. - CT abdomen / pelvis 10/20: 1. Thickened wall of the distal esophagus. Finding may be related to reflux esophagitis however an esophageal neoplasm should be excluded clinically. 2. There is diffuse pancreatic atrophy. 3. Elmore catheter demonstrated within a glass urinary bladder demonstrates marked thickening of the bladder wall and perivesicular inflammatory changes. Findings consistent w ith gross cystitis however neoplasm not excluded. In addition there is a right posterior lateral mass contiguous with the right side of the bladder which contains a small amount of air in overall dimensions of 5.1 x 4.4 x 5.5 cm. This may represent neoplasm within the large bladder diverticulum. 4. Bilateral moderate hydroureteronephrosis likely secondary to the above-described bladder findings and right posterolateral bladder mass. 5. Mild prostatic hyperplasia. 6. Circumferential thickening of the rectal wall which should be correlated with digital examination. - CT abdomen / pelvis 10/25: 1. Improved appearance to the right kidney and right hydronephrosis. Stable left hydronephrosis and hydroureter. Stable presumed malignant changes within the bladder, right ruperto pelvis and distal left ureter. 2. Small bilateral pleural effusions and bibasilar atelectasis represent new findings. 3. Remainder examination demonstrates chronic change. - CXR 10/28: Possible right basilar atelectasis and small pleural effusion. - CXR 10/30: Mild bibasilar atelectasis and small pleural effusions. - Ct Abdomen / Pelvis 10/31: 1. Previous pleural effusions and bibasilar atelectasis as well as pulmonary vascular congestion has improved and innumerable bilateral pulmonary nodules measuring up to 10 mm are now identified consistent with metastatic disease unless proven otherwise. 2. Bilateral percutaneous nephrostomies with near complete resolution of the hydroureteronephrosis. Small obstructing neoplasm in the left mid/distal ureter is again noted and a large complex mass involving the bladder and right ruperto pelvis as well as possible invasion to the prostate gland remains stable. 3. The current examination now illustrated very subtle vague scattered hepatic hypodensities consistent with metastatic disease unless proven otherwise including area in the periphery of the anterior right lobe measuring roughly 3 cm. 4. No ascites or drainable collection/abscess.5. Further chronic changes as above. - CXR 11/05: There is a nodule peripherally in the right upper lobe measuring about 1.5 cm in diameter. A nodular opacity projects in the left lung base, similar in size. No acute infiltrate is seen. There is poor ventilation. The heart is not significantly enlarged. There is mild bibasilar fibroatelectatic change. PROGNOSIS: Poor ACTIVITY: [As tolerated]. DISCHARGE PLAN: Follow up with PCP within 7 days Remain compliant with treatment plan and medications Return to the ER if you experience any problems DISPOSITION: Home Hospice / Facility with Hospice DISCHARGE CONDITION: Guarded TIME SPENT ON DISCHARGE: 36 minutes Vital Signs/I&Os Vital Signs Date Time Temp Pulse Resp B/P (MAP) Pulse Ox O2 Delivery O2 Flow Rate FiO2 11/06/18 14:00 97.5 102 16 127/78 (94) 98 I&O- Last 24 Hours up to 6 AM 11/07/18 06:00 Intake Total 780 ml Output Total 1400 ml Balance -620 ml Microbiology Microbiology 5/30/19 Urine Culture - Final, Complete 10/31/18 Urine Culture - Final, Complete 10/29/18 Anaerobic Culture - Final, Complete 10/29/18 Gram Stain - Final, Complete 10/29/18 Body Fluid Culture - Final, Complete Discharge Medications Scheduled Acetaminophen (Tylenol Extra Strength) 500 Mg Tablet, 1,000 MG PO BID, (Reported) Divalproex Sodium (Depakote Sprinkle) 125 Mg , 750 MG PO QAM, (Reported) Divalproex Sodium (Depakote Sprinkle) 125 Mg Cap., 500 MG PO QPM, (Repor julio) Polyethylene Glycol 3350 (Polyethylene Glycol 3350) 17 Gm Powd.pack, 17 GM PO DAILY, (Reported) Scheduled PRN Albuterol Sulfate (Albuterol Sulfate) 0.63 Mg/3 Ml Vial.neb, 1 VIAL NEB Q6H PRN for SHORTNESS OF BREATH, (Reported) Diphenhydramine HCl (Diphenhydramine HCl) 25 Mg Capsule, 25 MG PO Q4H PRN for NASAL CONGESTION, (Reported) Guaifenesin (Tussin) 100 Mg/5 Ml Liquid, 2 TSP PO Q4H PRN for COUGH, (Reported) Hyoscyamine Sulfate (Hyoscyamine Sulfate) 0.125 Mg Tab.subl, 0.125 MG PO Q4HP PRN for TERMINAL SECRETIONS Use sublingually if unable to swallow Lorazepam (Lorazepam) 0.5 Mg Tablet, 0.5 MG PO Q4HP PRN for ANXIETY/AGITATION Use sublingually if unable to swallow Morphine Sulfate (Morphine Sulfate) 100 Mg/5 Ml Solution, 0.25-1 ML PO Q2H PRN for PAIN OR DYSPNEA Use sublingually if unable to swallow Allergies Coded Allergies: tuberculin, purified protein deriva (Verified Allergy, Unknown, 09/17/18) ZOHRA MERCADO MD Nov 07, 2018 12:19
== END 2018-11-07 16:20 | disposition hospice, home (50) | DRG 683 ==
LOC: EDBD 10:06 → M ED 10:06 → M ED INP 13:24 → M PCU 14:40 → M MSPAV 11-01 20:46
PROVIDERS: ADMIT Internal Medicine; ATTEND Internal Medicine
PROC: 0T9030Z Drainage of Right Kidney with Drainage Device, Percutaneous Approach (ICD-10-PCS; 2018-10-22)
PROC: 0T9130Z Drainage of Left Kidney with Drainage Device, Percutaneous Approach (ICD-10-PCS; principal; 2018-10-29 14:30)
DX: N17.0 Acute kidney failure with tubular necrosis (principal); F73 Profound intellectual disabilities; E87.0 Hyperosmolality and hypernatremia; I16.9 Hypertensive crisis, unspecified; C68.0 Malignant neoplasm of urethra; N39.0 Urinary tract infection, site not specified; G80.9 Cerebral palsy, unspecified; I10 Essential (primary) hypertension; Z51.5 Encounter for palliative care; Z66 Do not resuscitate; H54.8 Legal blindness, as defined in USA; H91.3 Deaf nonspeaking, not elsewhere classified; N13.30 Unspecified hydronephrosis; H26.9 Unspecified cataract; D53.9 Nutritional anemia, unspecified; E78.5 Hyperlipidemia, unspecified; N31.9 Neuromuscular dysfunction of bladder, unspecified; E87.5 Hyperkalemia; F41.9 Anxiety disorder, unspecified; M81.0 Age-related osteoporosis without current pathological fracture; K21.9 Gastro-esophageal reflux disease without esophagitis; Z79.82 Long term (current) use of aspirin; Z79.899 Other long term (current) drug therapy; Z88.8 Allergy status to other drugs, medicaments and biological substances